=== PATIENT | male | born 1985 ===

== ENCOUNTER 2020-07-02 15:00 | Outpatient (RCR) | payer OTHER, SELFPAY ==
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
--- NOTE | 2020-07-08 08:35 | MHC.PT.DC ---
[facility] [place] Office [place] Office [place] Office [address] Karen Flower 140 [facility] [phone] F: [phone] F: [phone] F: [phone] F: [phone] Physical Therapy Discharge Report Diagnosis: unspecified thoracic, thoraco-lumbar and lumbosacral intervertebral disc disorder Date of Surgery: NA Date of Evaluation: 06/08/20 Date of Discharge: 07/08/20 Treatments to Date: 5 Cancellations to Date: 1 No Shows to Date: 1 Discharge Status: Patient Elected to Stop Discharge Summary: Pt called stating he had an MRI and was diagnosed to have a cyst in his low back which was pinching on a nerve. Pt is scheduled to have a surgery for this. Pt therefore d/c from therapy today. Electronically signed by: Miguelina Howard DPT Please sign and return to therapist. Thank you for your referral.
== END 2020-07-08 08:36 | disposition other institution (70) ==
LOC: HO.PT 15:00
PROVIDERS: PCP Internal Medicine; Visit Provider Physician Assistant
DX: M51.9 Unspecified thoracic, thoracolumbar and lumbosacral intervertebral disc disorder (principal)
CPT/HCPCS: 97110; 97112; 97140; 97161

== ENCOUNTER 2020-07-06 01:12 | Emergency (ER) | payer OTHER, SELFPAY ==
[2020-07-06 01:24] VITALS: BP 122/76; PULSE 88; RESP 18; TEMP 36.5; O2SAT 100; BMI 30.3
--- NOTE | 2020-07-06 01:28 | CT_ITS ---
EXAMINATION: CT ABDOMEN AND PELVIS WITH CONTRAST CLINICAL INFORMATION: Lower abdominal pain COMPARISON: None TECHNIQUE: Multidetector volumetric images were obtained from the superior aspect of the liver through the pubic symphysis following administration 85 mL of Omnipaque 350 intravenous contrast. Sagittal and coronal reformatted images were obtained on the technologist's workstation. Oral contrast: No This CT examination was performed using dose optimization techniques as appropriate, variously including the following: *Automated exposure control *Adjustment of mA and/or kV according to patient size (this includes techniques or standardized protocols for targeted exams where dose is matched to indication/reason for exam; i.e. extremities or head) *Use of iterative reconstruction technique DLP: 677 mGy-cm FINDINGS: LUNG BASES: The visualized lung bases are unremarkable. LIVER, GALLBLADDER, AND BILIARY TREE: The liver is normal in size, shape, and attenuation. No focal hepatic lesion or biliary ductal dilatation is present. The gallbladder appears contracted. PANCREAS: Unremarkable. SPLEEN: Unremarkable. ADRENAL GLANDS: Unremarkable. KIDNEYS AND URETERS: The kidneys are normal in size, shape, and attenuation. No hydronephrosis, hydroureter, or obstructing calculi seen. No perinephric stranding. BLADDER: Unremarkable. GASTROINTESTINAL TRACT: Moderate amount of stool is present in the colon. No evidence of bowel obstruction or significant wall thickening. The appendix is unremarkable. No free fluid or free air is seen. ABDOMINAL WALL: No significant hernia is appreciated. LYMPH NODES: Normal. VASCULAR: Unremarkable. PELVIC VISCERA: Unremarkable. OSSEOUS STRUCTURES: There is an expansile low-density structure posterior to the S2 and S3 vertebral bodies which is not well delineated on this exam, suggestive of a perineural cyst. CT/CT abdomen pelvis w con IMPRESSION: 1. Low-density structure posterior to the S2/S3 vertebral bodies, suggestive of a perineural cyst. Correlation with MRI is recommended. 2. Otherwise no acute findings identified in the abdomen/pelvis. Moderate volume of stool.
--- NOTE | 2020-07-06 01:29 | ED.MALEGU ---
HPI - Male Genitourinary General Chief complaint: Urogenital-Male Stated complaint: URINATION ISSUES Time Seen by Provider: 07/06/20 01:28 Source: patient Mode of arrival: ambulatory Limitations: no limitations History of Present Illness MD Complaint: other (urinary hesitancy, constipation, rectal pain) Onset (ago): month(s) (2) Duration: constant Location: abdomen Severity: moderate Quality: aching Relieving factors: none Exacerbating factors: urination and bowel movement Associated symptoms: Reports denies other symptoms Related Data Home Medications Medication Instructions Recorded Confirmed lidocaine 5 % topical patch 1 patch TOPICAL Q12H PRN 05/19/20 05/19/20 naproxen 500 mg tablet 500 mg PO Q12H PRN 05/19/20 05/19/20 Previous Rx's Medication Instructions Recorded ketoconazole 2 % shampoo 1 appl TOPICAL 3XW 30 Days #120 ml 05/19/20 sennosides 8.6 mg capsule 8.6 mg PO BEDTIME PRN 30 Days #30 05/19/20 cap cyclobenzaprine 10 mg PO TID PRN #14 tab 07/06/20 lactulose 15 ml PO DAILY PRN #600 ml 07/06/20 Allergies Allergy/AdvReac Type Severity Reaction Status Date / Time No Known Allergies Allergy Verified 05/19/20 10:03 [No Known Allergies*] Omeprazole AdvReac Unknown diarrhea Uncoded 02/04/20 00:00 Review of Systems Review of Systems: Constitutional : No Weight loss, No Fever, No Chills ENT/Mouth : No sore throat, No Rhinorrhea Eyes: No Swelling, No Redness Cardiovascular : No Chest Pain, No SOB, NoEdema Respiratory : No Cough, No Sputum, No Wheezing Gastrointestinal : no Nausea, no Vomiting, no Diarrhea, positive abdominal Pain, No Hematochezia, No Melena, pos rectal pain Genitourinary : pos Dysuria, No Urinary Frequency, No Hematuria, pos hesitancy Musculoskeletal : No joint pain, No Myalgias, No Joint Swelling Skin : No Skin Lesions, No rash Neuro : No Weakness, No Numbness, No Dizziness, No Headache Psych : No Anxiety/Panic, No Depression Heme/Lymph: No Bruising, No Lymphadenopathy Endocrine : No Polyuria, No Polydipsia All other systems reviewed and are negative. [facility] Past Medical History Attestation statement: The following information was validated with the patient. Medical History Constipation Lumbar spondylosis with myelopathy Surgical History History of ankle surgery Family History Family History Mother Diabetes Stroke High blood pressure Sister Thyroid condition Social History Social History Alcohol intake: current Alcohol intake frequency: a few times a week Alcohol type: beer Smoking Status: Current every day smoker Tobacco Type: Cigarette Use of substances other than those prescribed or required for medical reasons: No Advance Directives: No Advance Directives Information Provided: No Physical Exam Vital Signs: Vital Signs: Last Vital Signs Temp 97.7 F 07/06/20 01:24 Pulse 88 07/06/20 01:24 Resp 18 07/06/20 03:40 BP 122/76 07/06/20 01:24 Pulse Ox 100 07/06/20 01:24 Body Mass Index 30.3 Appearance: Alert. Oriented X3. No acute distress. Eyes: Pupils equal, round and reactive to light. ENT: Pharynx normal. Neck: Normal inspection. Neck supple. CVS: Normal heart rate and rhythm. Pulses normal. Respiratory: No respiratory distress. Breath sounds normal. Abdomen: Soft and nontender. Rectal: no mass, normal color, normal tone, no hemorrhoids noted Skin: Skin warm and dry. Normal skin color. Normal skin turgor. Extremities: No lower extremity edema. No calf ttp Neuro: Oriented X 3. No motor deficit. No sensory deficit. Course Course Course Narrative: normal rectal tone PVR = 0 no saddle anesthesia constipation x 2 months no CE symptoms c/o sciatica - suspect cyst is the cause, no b/b incontinence, no saddle anesthesia MDM - Male Genitourinary MDM Narrative Medical decision making narrative: 35 yo male with chronic back pain here with dysuria/hesitancy and rectal pain x 2 months, has not had it worked up, NV intact, normal rectal exam, at this time will need labs, UA, CT scan for mass, dispo per results and findings. Lab Data Result diagrams: 07/06/20 01:35 07/06/20 01:34 Labs: Lab Results 07/06/20 07/06/20 07/06/20 Range/Units 01:34 01:35 01:35 WBC 10.2 (4.8-10.8) X10*3/uL RBC 5.85 H (4.60-5.80) X10*6/uL Hgb 14.9 (14.0-18.0) g/dl Hct 46.9 (42-52) % MCV 80.2 (80-98) fL MCH 25.5 L (27.0-33.0) pg MCHC 31.8 (31.0-36.0) g/dl RDW 15.1 (11.0-16.0) % Plt Count 320 (160-400) X10*3/uL MPV 9.8 (9.4-12.4) fL Immature Gran % (Auto) 0.4 (0.0-0.4) % Neut % (Auto) 53.4 (45-73) % Lymph % (Auto) 35.5 (20-40) % [place] % (Auto) 8.7 (2-11) % Eos % (Auto) 1.2 (0-4) % Baso % (Auto) 0.8 (0-2) % Lymph # (Auto) 3.6 (1.2-4.9) X10*3/uL [place] # (Auto) 0.9 (0.1-1.2) X10*3/uL Eos # (Auto) 0.1 (0.0-0.4) X10*3/uL Baso # (Auto) 0.1 (0.0-0.2) X10*3/uL Abs Immat Gran (auto) 0.04 H (0.00-0.03) X10*3/uL Absolute Neuts (auto) 5.5 (2.0-8.3) X10*3/uL Absolute Nucleated RBC 0.000 (0.0-0.012) X10*3/uL Nucleated RBC % (auto) 0.0 (0.0-0.2) /100WBC Hold Blue Top SEE NOTE Sodium 142 (135-145) mmol/L Potassium 4.0 (3.3-5.1) mmol/l Chloride 102 (96-108) mmol/L Carbon Dioxide 23 (22-29) mmol/L Anion Gap 21 H (12-20) BUN 12 (9-16) mg/dL Creatinine 0.86 (0.5-1.4) mg/dL Estim Creat Clear Calc 154.9 Estimated GFR > 60 Random Glucose 108 (60-115) mg/dL Calcium 9.3 (8.4-10.2) mg/dL Magnesium 2.0 (1.6-2.6) mg/dL Total Bilirubin 0.4 (0.0-1.0) mg/dL Direct Bilirubin < 0.2 (0.0-0.5) mg/dL AST 24 (5-37) U/L ALT 39 (0-40) U/L Alkaline Phosphatase 115 (39-117) U/L Total Protein 7.6 (6.5-8.0) g/dL Albumin 4.7 (3.5-5.0) g/dL Lipase 25 (8-78) U/L Specimen Comment Urine Color Urine Appearance Urine pH (5.0-8.0) Ur Specific [place] (1.005-1.025) Urine Protein (NEG-TRACE) MG/DL Urine Glucose (UA) (NEG) MG/DL Urine Ketones (NEG) MG/DL Urine Blood (NEG) Urine Nitrite (NEG) Ur Leukocyte Esterase (NEG) 07/06/20 07/06/20 Range/Units 01:57 03:42 WBC (4.8-10.8) X10*3/uL RBC (4.60-5.80) X10*6/uL Hgb (14.0-18.0) g/dl Hct (42-52) % MCV (80-98) fL MCH (27.0-33.0) pg MCHC (31.0-36.0) g/dl RDW (11.0-16.0) % Plt Count (160-400) X10*3/uL MPV (9.4-12.4) fL Immature Gran % (Auto) (0.0-0.4) % Neut % (Auto) (45-73) % Lymph % (Auto) (20-40) % [place] % (Auto) (2-11) % Eos % (Auto) (0-4) % Baso % (Auto) (0-2) % Lymph # (Auto) (1.2-4.9) X10*3/uL [place] # (Auto) (0.1-1.2) X10*3/uL Eos # (Auto) (0.0-0.4) X10*3/uL Baso # (Auto) (0.0-0.2) X10*3/uL Abs Immat Gran (auto) (0.00-0.03) X10*3/uL Absolute Neuts (auto) (2.0-8.3) X10*3/uL Absolute Nucleated RBC (0.0-0.012) X10*3/uL Nucleated RBC % (auto) (0.0-0.2) /100WBC Hold Blue Top Sodium (135-145) mmol/L Potassium (3.3-5.1) mmol/l Chloride (96-108) mmol/L Carbon Dioxide (22-29) mmol/L Anion Gap (12-20) BUN (9-16) mg/dL Creatinine (0.5-1.4) mg/dL Estim Creat Clear Calc Estimated GFR Random Glucose (60-115) mg/dL Calcium (8.4-10.2) mg/dL Magnesium (1.6-2.6) mg/dL Total Bilirubin (0.0-1.0) mg/dL Direct Bilirubin (0.0-0.5) mg/dL AST (5-37) U/L ALT (0-40) U/L Alkaline Phosphatase (39-117) U/L Total Protein (6.5-8.0) g/dL Albumin (3.5-5.0) g/dL Lipase (8-78) U/L Specimen Comment DELAY Urine Color STRAW Urine Appearance CLEAR Urine pH 6.0 (5.0-8.0) Ur Specific [place] 1.010 (1.005-1.025) Urine Protein NEG (NEG-TRACE) MG/DL Urine Glucose (UA) NEG (NEG) MG/DL Urine Ketones NEG (NEG) MG/DL Urine Blood NEG (NEG) Urine Nitrite NEG (NEG) Ur Leukocyte Esterase NEG (NEG) Discharge Plan Discharge Clinical Impression: Perineural cyst Constipation Qualifiers: Constipation type: unspecified constipation type Qualified Code(s): K59.00 - Constipation, unspecified Patient Disposition: Home, Self-Care Instructions: Constipation (ED) Additional Instructions: return to ED for any worsening symptoms or concerns YOUR BACK PAIN LIKELY STEMS FROM A CYST ON A NERVE ROOT (S2 and S3) YOU NEED TO SEE A NEUROSURGEON AND HAVE MRI Prescriptions: New cyclobenzaprine 10 mg tablet 10 mg PO TID PRN (Reason: muscle spasm) Qty: 14 RF: 0 lactulose 10 gram/15 mL (15 mL) solution 15 ml PO DAILY PRN (Reason: constipation) Qty: 600 RF: 0 No Action naproxen 500 mg tablet 500 mg PO Q12H PRN (Reason: pain) RF: 0 lidocaine 5 % adhesive patch,medicated 1 patch topical Q12H PRNRF: 0 ketoconazole 2 % shampoo 1 appl topical 3XW 30 Days Qty: 120 RF: 0 senna 8.6 mg capsule 8.6 mg PO BEDTIME PRN (Reason: constipation) 30 Days Qty: 30 RF: 1 Referrals: Michelle Bennett MD [Physician] - 2 days (call for appointment ) Sujey Sanchez MD [Primary Care Provider] - 1 day
[2020-07-06] MEDS: 0.9 % Sodium Chloride 1,000 ML 999 ML IVCONT (01:36)
[2020-07-06 01:41] LABS: MANUAL DIFF FLAG NO
[2020-07-06 01:42] LABS: Basophils Absolute Auto 0.1 X10*3/uL (0.0-0.2); Basophils Percent Auto 0.8 % (0-2); Eosinophils Absolute Auto 0.1 X10*3/uL (0.0-0.4); Eosinophils Percent Auto 1.2 % (0-4); Hematocrit 46.9 % (42-52); Hemoglobin 14.9 g/dl (14.0-18.0); Imm Gran Abs Auto 0.04 X10*3/uL (0.00-0.03); Imm Gran Pct Auto 0.4 % (0.0-0.4); Lymphocytes Absolute Auto 3.6 X10*3/uL (1.2-4.9); Lymphocytes Percent Auto 35.5 % (20-40); Mean Corpuscular HGB Conc 31.8 g/dl (31.0-36.0); Mean Corpuscular Hemoglobin 25.5 pg (27.0-33.0); Mean Corpuscular Volume 80.2 fL (80-98); Mean Platelet Volume 9.8 fL (9.4-12.4); Monocytes Absolute Auto 0.9 X10*3/uL (0.1-1.2); Monocytes Percent Auto 8.7 % (2-11); Neutrophils Absolute Auto 5.5 X10*3/uL (2.0-8.3); Neutrophils Percent Auto 53.4 % (45-73); Platelet Count 320 X10*3/uL (160-400); Red Blood Count 5.85 X10*6/uL (4.60-5.80); Red Cell Distribution Width 15.1 % (11.0-16.0); White Blood Count 10.2 X10*3/uL (4.8-10.8)
[2020-07-06 01:58] LABS: Delay - Chemistry DELAY
[2020-07-06 02:31] LABS: Alanine Aminotransferase 39 U/L (0-40); Albumin Level 4.7 g/dL (3.5-5.0); Alkaline Phosphatase 115 U/L (39-117); Anion Gap 21 (12-20); Aspartate Amino Transferase 24 U/L (5-37); Bilirubin Direct < 0.2 mg/dL (0.0-0.5); Bilirubin Total 0.4 mg/dL (0.0-1.0); Blood Urea Nitrogen 12 mg/dL (9-16); Calcium 9.3 mg/dL (8.4-10.2); Carbon Dioxide 23 mmol/L (22-29); Chloride 102 mmol/L (96-108); Creatinine Clr Calc Pharmacy 154.9; Estimated Glomerular Filt Rate > 60; Glucose Random 108 mg/dL (60-115); Lipase 25 U/L (8-78); Sodium 142 mmol/L (135-145); Total Protein 7.6 g/dL (6.5-8.0)
[2020-07-06] MEDS: iohexoL 350 MG/ML 100 ML INFUS..BTL 85 ML IV (03:04)
[2020-07-06 03:40] VITALS: RESP 18
[2020-07-06 03:48] LABS: Glucose Urine UA NEG (NEG); Leukocyte Esterase Urine NEG (NEG); Nitrite Urine NEG (NEG); Urine Blood NEG (NEG); Urine Ketones NEG (NEG); Urine Protein NEG (NEG-TRACE)
[2020-07-06 03:50] LABS: Appearance Urine CLEAR; Color Urine STRAW; UACC Culture Trigger NO
== END 2020-07-06 04:24 | disposition home or self-care (01) ==
PROVIDERS: Emergency Provider Emergency Medicine; PCP Internal Medicine
DX: G96.191 Perineural cyst (principal); K59.00 Constipation, unspecified
CPT/HCPCS: 36415; 74177; 80048; 80076; 81003; 83690; 83735; 85025; 96360; 99284; Q9967

== ENCOUNTER 2020-07-22 15:44 | Outpatient (REF) | payer OTHER, SELFPAY ==
--- NOTE | ~2020-07-22 | MR_ITS ---
EXAMINATION: MR SACRUM WITHOUT CONTRAST CLINICAL INFORMATION: 35-year-old with low back pain radiating to the left leg. COMPARISON: 07/06/2020 CT abdomen. TECHNIQUE: Multiplanar multisequence MR imaging of the sacrum and coccyx was performed without intravenous contrast material. FINDINGS: Note is made of a multilobulated masslike structure within the sacral canal extending from approximately the level of the L5-S1 intervertebral disc space caudally down to the third sacral segment, measuring 7.1 x 5.5 x 2.6 cm in maximum dimensions. There is scalloping/remodeling of the bony sacral canal, right more than left. The mass extends into the right S2 neural foramen and possibly marginally into the bilateral S1 and left S2 neural foramina. Differential diagnostic considerations include a plexiform neurofibroma, schwannoma or lymphoma; however, gadolinium was not administered at this time. Signal characteristics are not consistent with an ependymoma. The remainder of the visualized pelvis is within normal limits. SI joints appear within normal limits. Bilateral hip joints appear symmetric and intact. Small benign-appearing cyst in the left femoral neck and probable small cysts in the proximal femoral metaphyses bilaterally. MR/MR sacrum wo con IMPRESSION: A 7.1 cm lobulated masslike structure within the sacral canal, possibly extradural in location. Differential diagnostic considerations include nerve sheath tumor such as a plexiform neurofibroma or schwannoma or possibly lymphoma. Recommend patient return for gadolinium-enhanced imaging to further assess this.
== END 2020-07-22 15:45 | disposition home or self-care (01) ==
LOC: HO.MRI 15:44
PROVIDERS: Visit Provider Internal Medicine
DX: G96.191 Perineural cyst (principal)
CPT/HCPCS: 72195

== ENCOUNTER 2020-09-16 14:41 | Outpatient (REF) | payer OTHER, SELFPAY ==
--- NOTE | ~2020-09-16 | MR_ITS ---
EXAMINATION: MRI SACRUM WITHOUT AND WITH CONTRAST CLINICAL INFORMATION: Sacral mass. COMPARISON: Sacral MRI 07/22/2020. TECHNIQUE: Multiplanar MR imaging of the sacrum was performed without and with contrast. A total of 10 mL Gadavist was utilized for this examination. FINDINGS: There is heterogeneous enhancement associated with a large mass filling the sacral spinal canal. It measures 2.7 x 5.5 x 6.9 cm (AP x TV x SI). It causes smooth expansion with remodeling of the S1-S3 vertebral segments. Otherwise no abnormal intradural mass is visualized within the relatively limited [id number]-[id number] of this examination. Remainder of the pelvic anatomy is stable when compared to prior imaging. MR/MR sacrum wo/w con IMPRESSION: There is heterogeneous enhancement associated with a lobulated mass filling the sacral spinal canal causing expansion with smooth remodeling of the S1-S3 vertebral segments. Most likely diagnostic considerations include a peripheral nerve sheath tumor or a myxopapillary ependymoma.
== END 2020-09-16 14:42 | disposition home or self-care (01) ==
LOC: HO.MRI 14:41
PROVIDERS: Visit Provider Neurological Surgery
DX: M99.84 Other biomechanical lesions of sacral region (principal)
CPT/HCPCS: 72197; A9585

== ENCOUNTER 2020-09-18 21:44 | Emergency (ER) | payer OTHER, SELFPAY ==
--- NOTE | ~2020-09-18 | XR_ITS ---
EXAMINATION: XR CHEST CLINICAL INFORMATION: Chest pain COMPARISON: None TECHNIQUE: Frontal view of the chest was obtained. FINDINGS: No significant abnormality is noted involving the heart, lungs, mediastinum, bony thorax or soft tissues. XR/XR chest 1V IMPRESSION: Unremarkable examination.
[2020-09-18 21:57] VITALS: BP 132/83; PULSE 78; RESP 18; TEMP 37.3; O2SAT 98; BMI 28.5
--- NOTE | 2020-09-18 22:01 | ECG_ITS ---
Test Reason : CHEST PAIN Blood Pressure : / mmHG Vent. Rate : 077 BPM Atrial Rate : 077 BPM P-R Int : 154 ms QRS Dur : 086 ms QT Int : 398 ms P-R-T Axes : 000 -40 018 degrees QTc Int : 450 ms Sinus rhythm with sinus arrhythmia with occasional Premature ventricular complexes Abnormal ECG No previous ECGs available Referred By: Generic ED Physician Electronically Signed By:FELIBERTO INGRAM
[2020-09-18 22:38] VITALS: BP 127/86; PULSE 74; RESP 14; TEMP 36.9; O2SAT 98
--- NOTE | 2020-09-18 22:50 | ED_ITS ---
HPI - Chest Pain General Chief Complaint: Chest Pain Stated Complaint: cp Time Seen by Provider: 09/18/20 22:50 Source: patient Mode of arrival: ambulatory Limitations: no limitations History of Present Illness HPI narrative: Patient with no known coronary artery disease ex-smoker had few drinks last night woke up in the morning with epigastric pain going to the left chest felt tingling in the left arm patient does have a history of GERD and pain gets worse when he eats . But feels this time pain is more on the left side than the center, No nausea no vomiting no diaphoresis no shortness of breath MD complaint: chest pain Related Data Home Medications Medication Instructions Recorded Confirmed lidocaine 5 % topical patch 1 patch TOPICAL Q12H PRN 05/19/20 07/09/20 naproxen 500 mg tablet 500 mg PO Q12H PRN 05/19/20 07/09/20 Previous Rx's Medication Instructions Recorded sennosides 8.6 mg capsule 8.6 mg PO BEDTIME PRN 30 Days #30 05/19/20 cap cyclobenzaprine 10 mg PO TID PRN #14 tab 07/06/20 lactulose 15 ml PO DAILY PRN #600 ml 07/06/20 ketoconazole 2 % shampoo 1 appl TOPICAL 3XW 30 Days #120 ml 09/02/20 omeprazole 40 mg PO DAILY #30 cap 09/18/20 sucralfate 1 g PO BID #60 tab 09/18/20 Allergies Allergy/AdvReac Type Severity Reaction Status Date / Time Omeprazole AdvReac Unknown diarrhea Uncoded 07/09/20 15:13 Review of Systems Review of Systems: Constitutional : No Weight loss, No Fever, No Chills ENT/Mouth : No sore throat, No Rhinorrhea Eyes: No Eye Pain, No Swelling Cardiovascular : ++Chest Pain, no palpitations Respiratory : No Cough, No Sputum, no shortness of breath Gastrointestinal : no Nausea, No Vomiting, No Diarrhea, No abdominal Pain, no black stools Genitourinary : No Dysuria, No Urinary Frequency Musculoskeletal : No joint pain, No Myalgias, No Joint Swelling Skin : No Skin Lesions, No rash Neuro : No Weakness, No Numbness, No Dizziness, No Headache Psych : No Anxiety/Panic, No Depression Heme/Lymph: No Bruising, No Lymphadenopathy Endocrine : No Polyuria, No Polydipsia All other systems reviewed and are negative PMFSH Past Medical History Medical History Constipation Lumbar spondylosis with myelopathy Perineural cyst Surgical History History of ankle surgery Family History Family History Mother Diabetes Stroke High blood pressure Sister Thyroid condition Social History Social History Alcohol intake: current Alcohol intake frequency: a few times a week Alcohol type: beer Smoking Status: Former smoker Tobacco Type: Cigarette Advance Directives: No Advance Directives Information Provided: No Physical Exam Vital Signs: Vital Signs: Last Vital Signs Temp 98.4 F 09/18/20 22:38 Pulse 74 09/18/20 22:38 Resp 14 09/18/20 22:38 BP 127/86 09/18/20 22:38 Pulse Ox 98 09/18/20 22:38 Body Mass Index 28.5 Appearance: Alert. Oriented X3. No acute distress. Eyes: Pupils equal, round and reactive to light. ENT: Pharynx normal. Neck: Normal inspection. Neck supple. CVS: Normal heart rate and rhythm. Pulses normal. Respiratory: No respiratory distress. Breath sounds normal. Abdomen: Soft epigastric tenderness+ no rebound tenderness or guarding Bowel sounds are present, no mass palpable, no CVA tenderness Skin: Skin warm and dry. Normal skin color. Normal skin turgor. Extremities: No lower extremity edema. No calf tenderness Neuro: Oriented X 3. No motor deficit. No sensory deficit. MDM - Chest Pain MDM Narrative Medical decision making narrative: Patient has atypical chest pain likely alcoholic gastritis pain get better after Maalox and Prilosec given in the ER. Differential Diagnosis Differential diagnosis: Likely atypical chest pain and chest pain Medical Records Data Attestation: I reviewed the patient's medical records. Lab Data Attestation: I reviewed the patient's lab results. Result diagrams: 09/18/20 22:47 09/18/20 22:47 Labs: Lab Results 09/18/20 09/18/20 09/18/20 Range/Units 22:47 22:47 22:47 WBC 10.1 (4.8-10.8) X10*3/uL RBC 5.54 (4.60-5.80) X10*6/uL Hgb 14.0 (14.0-18.0) g/dl Hct 43.2 (42-52) % MCV 78.0 L (80-98) fL MCH 25.3 L (27.0-33.0) pg MCHC 32.4 (31.0-36.0) g/dl RDW 15.2 (11.0-16.0) % Plt Count 323 (160-400) X10*3/uL MPV 9.8 (9.4-12.4) fL Immature Gran % (Auto) 0.5 H (0.0-0.4) % Neut % (Auto) 58.5 (45-73) % Lymph % (Auto) 28.7 (20-40) % [place] % (Auto) 10.3 (2-11) % Eos % (Auto) 1.1 (0-4) % Baso % (Auto) 0.9 (0-2) % Lymph # (Auto) 2.9 (1.2-4.9) X10*3/uL [place] # (Auto) 1.0 (0.1-1.2) X10*3/uL Eos # (Auto) 0.1 (0.0-0.4) X10*3/uL Baso # (Auto) 0.1 (0.0-0.2) X10*3/uL Abs Immat Gran (auto) 0.05 H (0.00-0.03) X10*3/uL Absolute Neuts (auto) 5.9 (2.0-8.3) X10*3/uL Absolute Nucleated RBC 0.000 (0.0-0.012) X10*3/uL Nucleated RBC % (auto) 0.0 (0.0-0.2) /100WBC Hold Blue Top SEE NOTE Sodium 140 (135-145) mmol/L Potassium 3.9 (3.3-5.1) mmol/L Chloride 103 (96-108) mmol/L Carbon Dioxide 28 (22-29) mmol/L Anion Gap 13 (12-20) BUN 13 (9-16) mg/dL Creatinine 0.92 (0.5-1.4) mg/dL Estim Creat Clear Calc 133.0 Estimated GFR > 60 Random Glucose 92 (60-115) mg/dL Calcium 9.4 (8.4-10.2) mg/dL Troponin I High Sens (<3.5-35.0) ng/L 09/18/20 Range/Units 22:47 WBC (4.8-10.8) X10*3/uL RBC (4.60-5.80) X10*6/uL Hgb (14.0-18.0) g/dl Hct (42-52) % MCV (80-98) fL MCH (27.0-33.0) pg MCHC (31.0-36.0) g/dl RDW (11.0-16.0) % Plt Count (160-400) X10*3/uL MPV (9.4-12.4) fL Immature Gran % (Auto) (0.0-0.4) % Neut % (Auto) (45-73) % Lymph % (Auto) (20-40) % [place] % (Auto) (2-11) % Eos % (Auto) (0-4) % Baso % (Auto) (0-2) % Lymph # (Auto) (1.2-4.9) X10*3/uL [place] # (Auto) (0.1-1.2) X10*3/uL Eos # (Auto) (0.0-0.4) X10*3/uL Baso # (Auto) (0.0-0.2) X10*3/uL Abs Immat Gran (auto) (0.00-0.03) X10*3/uL Absolute Neuts (auto) (2.0-8.3) X10*3/uL Absolute Nucleated RBC (0.0-0.012) X10*3/uL Nucleated RBC % (auto) (0.0-0.2) /100WBC Hold Blue Top Sodium (135-145) mmol/L Potassium (3.3-5.1) mmol/L Chloride (96-108) mmol/L Carbon Dioxide (22-29) mmol/L Anion Gap (12-20) BUN (9-16) mg/dL Creatinine (0.5-1.4) mg/dL Estim Creat Clear Calc Estimated GFR Random Glucose (60-115) mg/dL Calcium (8.4-10.2) mg/dL Troponin I High Sens < 3.5 (<3.5-35.0) ng/L ECG Data ECG #1: Attestation: I personally reviewed and interpreted this ECG as follows: Interpretation: Sinus rhythm with heart rate 77 beats per minute occasional PVCs unifocal left axis deviation no acute ST T wave changes no acute ischemia Scores Heart Score History: -0- slightly suspicious ECG: -0- normal Age: -0- < or = 45 Risk factory: -1- 1 or 2 risk factors Troponin: -0- < or = normal limit Score: 1 Risk: 1.7% Discharge Plan Discharge Clinical Impression: Chest pain Qualifiers: Chest pain type: precordial pain Qualified Code(s): R07.2 - Precordial pain GERD (gastroesophageal reflux disease) Qualifiers: Esophagitis presence: with esophagitis Esophagitis bleeding: without hemorrhage Qualified Code(s): K21.00 - Gastro-esophageal reflux disease with esophagitis, without bleeding Patient Disposition: Home, Self-Care Instructions: Chest Pain (ED), Gastroesophageal Reflux Disease (ED) Additional Instructions: Avoid alcohol use, avoid greasy food, take medication as prescribed. Follow with PCP if pain continues for further evaluation and workup Prescriptions: New omeprazole 40 mg capsule,delayed release(DR/EC) 40 mg PO DAILY Qty: 30 RF: 0 sucralfate 1 gram tablet 1 g PO BID Qty: 60 RF: 0 No Action ketoconazole 2 % shampoo 1 appl topical 3XW 30 Days Qty: 120 RF: 0 cyclobenzaprine 10 mg tablet 10 mg PO TID PRN (Reason: muscle spasm) Qty: 14 RF: 0 lactulose 10 gram/15 mL (15 mL) solution 15 ml PO DAILY PRN (Reason: constipation) Qty: 600 RF: 0 naproxen 500 mg tablet 500 mg PO Q12H PRN (Reason: pain) RF: 0 lidocaine 5 % adhesive patch,medicated 1 patch topical Q12H PRNRF: 0 senna 8.6 mg capsule 8.6 mg PO BEDTIME PRN (Reason: constipation) 30 Days Qty: 30 RF: 1
[2020-09-18 22:52] LABS: MANUAL DIFF FLAG NO
[2020-09-18 22:53] LABS: Basophils Absolute Auto 0.1 X10*3/uL (0.0-0.2); Basophils Percent Auto 0.9 % (0-2); Eosinophils Absolute Auto 0.1 X10*3/uL (0.0-0.4); Eosinophils Percent Auto 1.1 % (0-4); Hematocrit 43.2 % (42-52); Imm Gran Abs Auto 0.05 X10*3/uL (0.00-0.03); Imm Gran Pct Auto 0.5 % (0.0-0.4); Lymphocytes Absolute Auto 2.9 X10*3/uL (1.2-4.9); Lymphocytes Percent Auto 28.7 % (20-40); Mean Corpuscular HGB Conc 32.4 g/dl (31.0-36.0); Mean Corpuscular Hemoglobin 25.3 pg (27.0-33.0); Mean Platelet Volume 9.8 fL (9.4-12.4); Monocytes Percent Auto 10.3 % (2-11); Neutrophils Absolute Auto 5.9 X10*3/uL (2.0-8.3); Neutrophils Percent Auto 58.5 % (45-73); Platelet Count 323 X10*3/uL (160-400); Red Blood Count 5.54 X10*6/uL (4.60-5.80); Red Cell Distribution Width 15.2 % (11.0-16.0); White Blood Count 10.1 X10*3/uL (4.8-10.8)
[2020-09-18] MEDS: Omeprazole 40 MG CAPSULE.DR PO (23:09)
[2020-09-18] MEDS: Magnesium Hydrox/Alum Hydrox 30 ML ORAL.SUSP PO (23:09)
--- NOTE | 2020-09-18 23:11 | PC.NURSE ---
pt medicated as per emar.
[2020-09-18 23:20] LABS: Anion Gap 13 (12-20); Blood Urea Nitrogen 13 mg/dL (9-16); Calcium 9.4 mg/dL (8.4-10.2); Carbon Dioxide 28 mmol/L (22-29); Chloride 103 mmol/L (96-108); Estimated Glomerular Filt Rate > 60; Glucose Random 92 mg/dL (60-115); Potassium 3.9 mmol/L (3.3-5.1); Sodium 140 mmol/L (135-145)
[2020-09-18 23:29] LABS: Troponin-I High Sensitivity < 3.5 ng/L (<3.5-35.0)
== END 2020-09-19 00:36 | disposition home or self-care (01) ==
PROVIDERS: Emergency Provider Internal Medicine; PCP Internal Medicine
DX: R07.2 Precordial pain (principal); K21.00 Gastro-esophageal reflux disease with esophagitis, without bleeding
CPT/HCPCS: 36415; 71045; 80048; 84484; 85025; 93005; 99283

== ENCOUNTER 2020-11-24 14:25 | Emergency (ER) | payer OTHER, SELFPAY | END 2020-11-24 19:20 | disposition left against medical advice (07) | PROVIDERS: Emergency Provider Emergency Medicine; PCP Internal Medicine | DX: R07.9 Chest pain, unspecified (principal); M25.519 Pain in unspecified shoulder ==

== ENCOUNTER 2021-01-19 11:09 | Outpatient (REF) | payer OTHER, SELFPAY ==
[2021-01-19 12:33] LABS: Blood Urea Nitrogen 9 mg/dL (9-16); Estimated Glomerular Filt Rate > 60
== END 2021-01-19 11:10 | disposition home or self-care (01) ==
LOC: HO.LAB 11:09
PROVIDERS: PCP Internal Medicine; Visit Provider Internal Medicine
DX: Z20.822 Contact with and (suspected) exposure to COVID-19 (principal); G96.191 Perineural cyst
CPT/HCPCS: 36415; 82565; 84520; C9803; U0003; U0005

== ENCOUNTER 2021-06-23 16:50 | Outpatient (REF) | payer OTHER, SELFPAY ==
--- NOTE | ~2021-06-23 | XR_ITS ---
EXAMINATION: XR ABDOMEN KUB CLINICAL INDICATION: Constipation COMPARISON: CT abdomen from 07/06/2020 TECHNIQUE: AP view of the abdomen. FINDINGS: No dilated loops of bowel suggest obstruction. Mild fecal loading throughout the colon. Surgical spinal hardware overlying the mid sacrum. Joint spaces and alignment are otherwise maintained. Visualized portions of the lower chest are unremarkable. Tissues are unremarkable. XR/XR KUB IMPRESSION: 1. No dilated loops of bowel suggest obstruction. 2. Mild fecal loading throughout the colon. 3. Surgical spinal hardware overlying the mid sacrum.
== END 2021-06-23 16:51 | disposition home or self-care (01) ==
LOC: HO.XRAY 16:50
PROVIDERS: PCP Internal Medicine; Visit Provider Nurse Practitioner Family
DX: K59.00 Constipation, unspecified (principal)
CPT/HCPCS: 74018

== ENCOUNTER 2021-08-12 16:48 | Emergency (ER) | payer OTHER, SELFPAY ==
[2021-08-12 16:55] VITALS: BP 136/77; PULSE 84; RESP 18; TEMP 36.8; O2SAT 98; BMI 28.5
[2021-08-12 17:33] LABS: MANUAL DIFF FLAG NO
[2021-08-12 17:34] LABS: Basophils Percent Auto 0.5 % (0-2); Eosinophils Absolute Auto 0.2 X10*3/uL (0.0-0.4); Eosinophils Percent Auto 2.1 % (0-4); Hematocrit 42.9 % (42.0-52.0); Hemoglobin 13.8 g/dl (14.0-18.0); Imm Gran Abs Auto 0.04 X10*3/uL (0.00-0.03); Imm Gran Pct Auto 0.5 % (0.0-0.4); Lymphocytes Absolute Auto 1.3 X10*3/uL (1.2-4.9); Lymphocytes Percent Auto 16.7 % (20-40); Mean Corpuscular HGB Conc 32.2 g/dl (31.0-36.0); Mean Corpuscular Hemoglobin 25.5 pg (27.0-33.0); Mean Corpuscular Volume 79.2 fL (80.0-98.0); Mean Platelet Volume 9.5 fL (9.4-12.4); Monocytes Absolute Auto 0.9 X10*3/uL (0.1-1.2); Monocytes Percent Auto 10.7 % (2-11); Neutrophils Absolute Auto 5.5 x10*3/uL (2.0-8.3); Neutrophils Percent Auto 69.5 % (45-73); Platelet Count 274 X10*3/uL (160-400); Red Blood Count 5.42 X10*6/uL (4.60-5.80); Red Cell Distribution Width 16.2 % (11.0-16.0)
[2021-08-12 17:35] LABS: Appearance Urine CLEAR; Color Urine YELLOW; Glucose Urine UA NEG (NEG); Leukocyte Esterase Urine NEG (NEG); Nitrite Urine NEG (NEG); Urine Blood NEG (NEG); Urine Ketones NEG (NEG); Urine Protein NEG (NEG-TRACE)
[2021-08-12 17:50] LABS: COVID-19 Test Negative (Negative)
[2021-08-12 17:53] LABS: Alanine Aminotransferase 25 U/L (0-40); Albumin Level 4.4 g/dL (3.5-5.0); Alkaline Phosphatase 95 U/L (39-117); Anion Gap 8 (12-20); Aspartate Amino Transferase 18 U/L (5-37); Bilirubin Total 1.1 mg/dL (0.0-1.0); Blood Urea Nitrogen 13 mg/dL (9-16); Calcium 9.7 mg/dL (8.4-10.2); Carbon Dioxide 31 mmol/L (22-29); Chloride 104 mmol/L (96-108); Creatinine Clr Calc Pharmacy 132.6; Estimated Glomerular Filt Rate > 60; Glucose Random 98 mg/dL (60-115); Potassium 4.1 mmol/L (3.3-5.1); Sodium 139 mmol/L (135-145); Total Protein 7.2 g/dL (6.5-8.0)
--- NOTE | 2021-08-12 19:36 | ED_ITS ---
HPI - General Adult General Chief complaint: General Medical Stated complaint: covid symptoms, lasting 2 mths, stomach pain Time Seen by Provider: 08/12/21 19:42 Source: patient Mode of arrival: ambulatory Limitations: no limitations History of Present Illness HPI narrative: 36-year-old male presents to ED for loss of taste and smell the past 2 months. Patient was diagnosed with COVID months ago. Patient denies any chest pain or shortness of breath. Patient's secondary complaint is acid like burning sensation abdomen for 2 months which leads to bad taste in the mouth, and also after eating couple hours later he will be hungry and have acid burning sensation. Patient denies any chest pain or shortness of breath. Patient denies any coughing up blood, fever, or chills. Patient denies any diarrhea or nausea, vomiting, leg swelling, calf pain, fever, or chills. Patient does states burning sensation abdomen worsening when he drinks alcohol. Related Data Home Medications Medication Instructions Recorded Confirmed gabapentin 300 mg capsule 300 mg PO TID 05/24/21 06/23/21 Previous Rx's Medication Instructions Recorded ketoconazole 2 % shampoo 1 appl TOPICAL 3XW 30 Days #120 ml 05/19/21 omeprazole 40 mg capsule,delayed 40 mg PO DAILY 90 Days #90 cap 05/24/21 release hydrocortisone acetate 25 mg 25 mg SC BID 12 Days #24 ea 06/23/21 rectal suppository (Anusol-HC) hydroxyzine HCl 25 mg tablet 25 mg PO BEDTIME #30 tab 06/23/21 sennosides 8.6 mg capsule (senna) 8.6 mg PO BEDTIME PRN 30 Days #30 06/23/21 cap escitalopram oxalate 10 mg tablet 10 mg PO DAILY 30 Days #30 tab 07/22/21 docusate sodium 100 mg capsule 100 mg PO BID #60 cap 08/10/21 simethicone 80 mg chewable tablet 80 mg PO TID-QID PRN #30 tab 08/10/21 (Gas Relief 80 (simethicone)) famotidine 20 mg tablet (Pepcid) 20 mg PO BID 10 Days #20 tab 08/12/21 Allergies Allergy/AdvReac Type Severity Reaction Status Date / Time No Known Allergies Allergy Verified 08/12/21 16:54 Review of Systems Review of Systems: Loss of taste and smell. Acid burning-like sensation in abdomen Yes all other systems are reviewed and are negative [facility] Past Medical History Medical History Anxiety Blurry vision Constipation Lumbar spondylosis with myelopathy Moderate recurrent major depression Myxopapillary ependymoma of spinal cord Perineural cyst Surgical History History of ankle surgery History of lumbar surgery Family History Family History Mother Diabetes Stroke High blood pressure Sister Thyroid condition Social History Social History Housing: House Alcohol intake: current Alcohol intake frequency: a few times a week Alcohol type: beer Patient Tobacco Use Status: Former Tobacco user Tobacco use type: Cigarette e-Cigarette/Vaping Use: Never Used Second Hand Smoke Exposure: No Advance Directives: No Advance Directives Information Provided: No service: No Current occupational status: unemployed Physical Exam ED Vital Signs: Vital Signs - 24 hr 08/12/21 16:55 Temperature 98.3 F Pulse Rate 84 Respiratory Rate 18 Blood Pressure 136/77 Pulse Oximetry 98 BMI result Body Mass Index 28.5 Const General: cooperative, healthy appearing, comfortable, no acute distress, well developed, alert, awake and Physically active Orientation/consciousness: patient oriented x3 HENMT Head: Yes normal to inspection, Yes No palpable skull fracture present, Yes normocephalic, Yes atraumatic and No abrasion Eyes General: appearance normal, both eyes and all related structures Neck Neck: Yes normal visual inspection, Yes full ROM, Yes no lymphadenopathy, Yes no meningeal signs, Yes trachea midline, Yes supple, No anterior neck swelling and No tender Chest Chest palpation & inspection: normal inspection of the chest and normal palpation of entire chest wall Resp Effort & Inspection: normal respiratory effort and able to speak in complete sentences Auscultation: clear to auscultation bilaterally Cardio Jugular venous distension: no JVD Heart sounds: S1 normal heart sound present and S2 normal heart sound present GI Inspection: Yes normal to inspection and No abdominal wall ecchymosis Palpation (GI): Soft to palpation, not firm, nontender, no guarding and not rigid General: No CVA tenderness and Yes no CVA tenderness Back/Spine/Pelvis Back: no CVA tenderness, No CVA tenderness and No back tenderness Skin General skin exam: no rashes or lesions noted and elasticity normal Neuro General: patient oriented x3, gait normal, no meningeal signs and CN's II-XI intact bilaterally Cranial nerves: Yes CN's II-XII intact bilaterally Extrem General: Yes normal to inspection and Yes full ROM Psych Appearance: grossly normal, well kempt and not disheveled Course Course Course Narrative: Patient rapid medical screening from waiting room. Waiting for lab results. COVID swab sent. Reevaluation(s) Reevaluation #1: Patient not in any distress. Abdomen benign soft nontender on palpation. Lipase added. Liver enzymes COVID swab negative. Chemistry normal. Negative failure white blood cell count. Physical presentation long-term COVID symptoms and GERD like symptoms. Time: 19:54 Reevaluation #2: Bedside ultrasound negative for gallstones. Negative Benton sign. Time: 21:41 Medical Decision Making MDM Narrative Medical decision making narrative: GERD. COVID Long symptoms Lab Data Result diagrams: 08/12/21 17:29 08/12/21 17:29 Labs: Lab Results 08/12/21 08/12/21 08/12/21 Range/Units 17:29 17:29 17:29 WBC 8.0 (4.8-10.8) X10*3/uL RBC 5.42 (4.60-5.80) X10*6/uL Hgb 13.8 L (14.0-18.0) g/dl Hct 42.9 (42.0-52.0) % MCV 79.2 L (80.0-98.0) fL MCH 25.5 L (27.0-33.0) pg MCHC 32.2 (31.0-36.0) g/dl RDW 16.2 H (11.0-16.0) % Plt Count 274 (160-400) X10*3/uL MPV 9.5 (9.4-12.4) fL Immature Gran % (Auto) 0.5 H (0.0-0.4) % Neut % (Auto) 69.5 (45-73) % Lymph % (Auto) 16.7 L (20-40) % [place] % (Auto) 10.7 (2-11) % Eos % (Auto) 2.1 (0-4) % Baso % (Auto) 0.5 (0-2) % Lymph # (Auto) 1.3 (1.2-4.9) X10*3/uL [place] # (Auto) 0.9 (0.1-1.2) X10*3/uL Eos # (Auto) 0.2 (0.0-0.4) X10*3/uL Baso # (Auto) 0.0 (0.0-0.2) X10*3/uL Abs Immat Gran (auto) 0.04 H (0.00-0.03) X10*3/uL Absolute Neuts (auto) 5.5 (2.0-8.3) x10*3/uL Absolute Nucleated RBC 0.000 (0.0-0.012) X10*3/uL Nucleated RBC % (auto) 0.0 (0.0-0.2) /100WBC Sodium 139 (135-145) mmol/L Potassium 4.1 (3.3-5.1) mmol/L Chloride 104 (96-108) mmol/L Carbon Dioxide 31 H (22-29) mmol/L Anion Gap 8 L (12-20) BUN 13 (9-16) mg/dL Creatinine 0.94 (0.5-1.4) mg/dL Estim Creat Clear Calc 132.6 Estimated GFR > 60 Random Glucose 98 (60-115) mg/dL Calcium 9.7 (8.4-10.2) mg/dL Total Bilirubin 1.1 H (0.0-1.0) mg/dL AST 18 (5-37) U/L ALT 25 (0-40) U/L Alkaline Phosphatase 95 (39-117) U/L Total Protein 7.2 (6.5-8.0) g/dL Albumin 4.4 (3.5-5.0) g/dL Lipase 19 (8-78) U/L Urine Color Urine Appearance Urine pH (5.0-8.0) Ur Specific [place] (1.005-1.025) Urine Protein (NEG-TRACE) MG/DL Urine Glucose (UA) (NEG) MG/DL Urine Ketones (NEG) MG/DL Urine Blood (NEG) Urine Nitrite (NEG) Ur Leukocyte Esterase (NEG) COVID-19 ([place]) Negative (Negative) COVID-19 Clin Com See Note 08/12/21 Range/Units 17:29 WBC (4.8-10.8) X10*3/uL RBC (4.60-5.80) X10*6/uL Hgb (14.0-18.0) g/dl Hct (42.0-52.0) % MCV (80.0-98.0) fL MCH (27.0-33.0) pg MCHC (31.0-36.0) g/dl RDW (11.0-16.0) % Plt Count (160-400) X10*3/uL MPV (9.4-12.4) fL Immature Gran % (Auto) (0.0-0.4) % Neut % (Auto) (45-73) % Lymph % (Auto) (20-40) % [place] % (Auto) (2-11) % Eos % (Auto) (0-4) % Baso % (Auto) (0-2) % Lymph # (Auto) (1.2-4.9) X10*3/uL [place] # (Auto) (0.1-1.2) X10*3/uL Eos # (Auto) (0.0-0.4) X10*3/uL Baso # (Auto) (0.0-0.2) X10*3/uL Abs Immat Gran (auto) (0.00-0.03) X10*3/uL Absolute Neuts (auto) (2.0-8.3) x10*3/uL Absolute Nucleated RBC (0.0-0.012) X10*3/uL Nucleated RBC % (auto) (0.0-0.2) /100WBC Sodium (135-145) mmol/L Potassium (3.3-5.1) mmol/L Chloride (96-108) mmol/L Carbon Dioxide (22-29) mmol/L Anion Gap (12-20) BUN (9-16) mg/dL Creatinine (0.5-1.4) mg/dL Estim Creat Clear Calc Estimated GFR Random Glucose (60-115) mg/dL Calcium (8.4-10.2) mg/dL Total Bilirubin (0.0-1.0) mg/dL AST (5-37) U/L ALT (0-40) U/L Alkaline Phosphatase (39-117) U/L Total Protein (6.5-8.0) g/dL Albumin (3.5-5.0) g/dL Lipase (8-78) U/L Urine Color YELLOW Urine Appearance CLEAR Urine pH 6.0 (5.0-8.0) Ur Specific [place] 1.020 (1.005-1.025) Urine Protein NEG (NEG-TRACE) MG/DL Urine Glucose (UA) NEG (NEG) MG/DL Urine Ketones NEG (NEG) MG/DL Urine Blood NEG (NEG) Urine Nitrite NEG (NEG) Ur Leukocyte Esterase NEG (NEG) COVID-19 ([place]) (Negative) COVID-19 Clin Com Discharge Plan Discharge Clinical Impression: GERD (gastroesophageal reflux disease), 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 He will be discharged with anti acid medication. You can take [id number] Tums and Maalox. Return to the ED immediately for abdominal pain, nausea, vomiting, decreased appetite, fever, chills, flank pain, vomiting blood, rectal bleeding, or any other concerning symptoms. Prescriptions: New famotidine [Pepcid] 20 mg tablet 20 mg PO BID 10 Days Qty: 20 0RF No Action ketoconazole 2 % shampoo 1 appl topical 3XW 30 Days Qty: 120 3RF hydroxyzine HCl 25 mg tablet 25 mg PO BEDTIME Qty: 30 0RF escitalopram oxalate 10 mg tablet 10 mg PO DAILY 30 Days Qty: 30 0RF docusate sodium 100 mg capsule 100 mg PO BID Qty: 60 0RF simethicone [Gas Relief 80 (simethicone)] 80 mg tablet,chewable 80 mg PO TID-QID PRN (Reason: abdominal distention) Qty: 30 0RF gabapentin 300 mg capsule 300 mg PO TID 0RF omeprazole 40 mg capsule,delayed release(DR/EC) 40 mg PO DAILY 90 Days Qty: 90 1RF senna 8.6 mg capsule 8.6 mg PO BEDTIME PRN (Reason: constipation) 30 Days Qty: 30 1RF hydrocortisone acetate [Anusol-HC] 25 mg suppository 25 mg SC BID 12 Days Qty: 24 0RF Referrals: John Garay [Physician] - 2 days (Acid burning sensation abdomen. GERD. May need endoscopy.) Stand Alone Forms: Work/School Release Interventions: ED Discharge Assessment Last Done: 08/12/21 21:51 Discharge Date/Time: 08/12/21 21:51 Print Language: Prydeinig
[2021-08-12 20:17] LABS: Lipase 19 U/L (8-78)
== END 2021-08-12 21:51 | disposition home or self-care (01) ==
PROVIDERS: Physician Assistant; Emergency Provider Emergency Medicine Emergency Medical Services; PCP Internal Medicine
DX: K21.9 Gastro-esophageal reflux disease without esophagitis (principal); R43.8 Other disturbances of smell and taste; U09.9 Post COVID-19 condition, unspecified; Z20.822 Contact with and (suspected) exposure to COVID-19
CPT/HCPCS: 80053; 81003; 83690; 85025; 87635; 99282; 99283

== ENCOUNTER → 2021-09-21 12:00 | Outpatient (BNVA) | payer OTHER, SELFPAY | PROVIDERS: PCP Internal Medicine; Visit Provider Physician Assistant | DX: K21.9 Gastro-esophageal reflux disease without esophagitis (principal); Z78.9 Other specified health status | CPT/HCPCS: 99202 ==

== ENCOUNTER 2021-10-15 12:59 | Emergency (ER) | payer OTHER, SELFPAY | END 2021-10-15 15:14 | disposition left against medical advice (07) | PROVIDERS: Emergency Provider Emergency Medicine; PCP Internal Medicine | DX: M25.571 Pain in right ankle and joints of right foot (principal) ==

== ENCOUNTER 2022-04-06 10:49 | Outpatient (REF) | payer OTHER, SELFPAY ==
[2022-04-06 11:08] LABS: MANUAL DIFF FLAG NO
[2022-04-06 11:51] LABS: Basophils Absolute Auto 0.1 X10*3/uL (0.0-0.2); Basophils Percent Auto 0.7 % (0-2); Eosinophils Absolute Auto 0.1 X10*3/uL (0.0-0.4); Eosinophils Percent Auto 0.9 % (0-4); Hematocrit 47.9 % (42.0-52.0); Hemoglobin 15.4 g/dl (14.0-18.0); Imm Gran Abs Auto 0.04 X10*3/uL (0.00-0.03); Imm Gran Pct Auto 0.5 % (0.0-0.4); Lymphocytes Absolute Auto 1.6 X10*3/uL (1.2-4.9); Lymphocytes Percent Auto 19.2 % (20-40); Mean Corpuscular HGB Conc 32.2 g/dl (31.0-36.0); Mean Corpuscular Hemoglobin 25.3 pg (27.0-33.0); Mean Corpuscular Volume 78.7 fL (80.0-98.0); Mean Platelet Volume 10.2 fL (9.4-12.4); Monocytes Absolute Auto 0.8 X10*3/uL (0.1-1.2); Neutrophils Absolute Auto 5.5 x10*3/uL (2.0-8.3); Neutrophils Percent Auto 68.7 % (45-73); Platelet Count 314 X10*3/uL (160-400); Red Blood Count 6.09 X10*6/uL (4.60-5.80); White Blood Count 8.1 X10*3/uL (4.8-10.8)
[2022-04-06 12:12] LABS: Alanine Aminotransferase 28 U/L (0-40); Albumin Level 4.8 g/dL (3.5-5.0); Alkaline Phosphatase 109 U/L (39-117); Anion Gap 18 (12-20); Aspartate Amino Transferase 19 U/L (5-37); Bilirubin Total 0.7 mg/dL (0.0-1.0); Blood Urea Nitrogen 13 mg/dL (9-16); Calcium 9.8 mg/dL (8.4-10.2); Carbon Dioxide 24 mmol/L (22-29); Chloride 105 mmol/L (96-108); Estimated Glomerular Filt Rate > 60; Glucose Random 89 mg/dL (60-115); Potassium 4.6 mmol/L (3.3-5.1); Sodium 142 mmol/L (135-145); Total Protein 7.7 g/dL (6.5-8.0)
[2022-04-06 12:35] LABS: Thyroid Stimulating Hormone 0.49 uIU/mL (0.32-4.0)
== END 2022-04-06 10:50 | disposition home or self-care (01) ==
LOC: HO.LAB 10:49
PROVIDERS: PCP Internal Medicine; Visit Provider Clinical Nurse Specialist Psychiatric/Mental Health, Adult
DX: Z79.899 Other long term (current) drug therapy (principal)
CPT/HCPCS: 36415; 80053; 84443; 85025

== ENCOUNTER → 2022-06-07 13:57 | Outpatient (BNVA) | payer OTHER, SELFPAY | PROVIDERS: PCP Internal Medicine; Visit Provider Physician Assistant | DX: Z13.89 Encounter for screening for other disorder (principal) ==

== ENCOUNTER → 2022-10-12 07:53 | Outpatient (BNVA) | payer OTHER, SELFPAY | PROVIDERS: PCP Internal Medicine; Referring Provider Internal Medicine; Visit Provider Physician Assistant | DX: K64.9 Unspecified hemorrhoids (principal); K59.09 Other constipation; N50.819 Testicular pain, unspecified | CPT/HCPCS: 99212 ==

== ENCOUNTER 2022-10-17 13:54 | Outpatient (REF) | payer OTHER, SELFPAY ==
--- NOTE | ~2022-10-17 | US_ITS ---
EXAMINATION: US SCROTUM CLINICAL INFORMATION: Testicular pain. COMPARISON: None available. TECHNIQUE: A sonogram of the scrotum was performed assessing flanagan-scale appearance and color Doppler flow. Spectral Doppler analysis of the arterial and venous flow were performed in the testes bilaterally. FINDINGS: RIGHT: Right testicle measures 4.7 x 2.6 x 2.6 cm, volume 17 mL. No focal testicular parenchymal lesions are visualized. Spectral Doppler analysis of the arterial and venous flow is normal in the right testis. Right epididymal head is normal in size. Small right appendix epididymis. Small right hydrocele. No varicocele.. Right epididymal Doppler flow is normal. LEFT: Left testicle measures 3.7 x 2.3 x 3.3 cm, volume 15 mL. No focal testicular parenchymal lesions are visualized. Spectral Doppler analysis of the arterial and venous flow is in the left testis. Left epididymal head is normal in size. Small left hydrocele. No varicocele. Left epididymal Doppler flow is normal. US/US scrotum IMPRESSION: Small bilateral hydroceles otherwise unremarkable exam.
== END 2022-10-17 13:55 | disposition home or self-care (01) ==
LOC: HO.US 13:54
PROVIDERS: Visit Provider Nurse Practitioner Family
DX: N50.819 Testicular pain, unspecified (principal)
CPT/HCPCS: 76870

== ENCOUNTER 2023-01-05 07:48 | Emergency (ER) | payer OTHER, SELFPAY ==
[2023-01-05 07:51] VITALS: BP 129/83; PULSE 73; RESP 18; TEMP 36.5; O2SAT 97; BMI 27.4
--- NOTE | 2023-01-05 08:16 | ED.GENADULT ---
HPI - General Adult General Chief complaint: General Medical Stated complaint: pain in throat x 3 wks Time Seen by Provider: 01/05/23 07:58 Source: patient Mode of arrival: ambulatory Limitations: no limitations History of Present Illness HPI narrative: 37 yo male with a long standing tobacco smoking history presents to the ER with 3 weeks of right sided sore throat, hoarseness. No diff swallowing, diff breathing, rhinorrhea, congestion, cough, fevers, chills, weight loss, night sweats. Has not done any COVID testing. NO sick contact or recent travel. Related Data Previous Rx's Medication Instructions Recorded ketoconazole 2 % shampoo 1 appl topical 3XW 30 days #120 mL 05/19/21 methylcellulose (laxative) 500 mg 500 mg PO TID #90 tabs 09/21/21 tablet (Citrucel) docusate sodium 100 mg capsule 100 mg PO BID 30 days #60 caps 01/17/22 escitalopram oxalate 10 mg tablet 10 mg PO DAILY 30 days #30 tabs 02/09/22 hydroxyzine HCl 25 mg tablet 25 mg PO BEDTIME #30 tabs 03/20/22 gabapentin 300 mg capsule 300 mg PO TID 30 days #90 caps 04/22/22 selenium sulfide 1 % shampoo 5 ml topical 2XW 30 days #207 mL 04/23/22 (Dandruff Shampoo (selenium sulfide)) bisacodyl 10 mg rectal suppository 10 mg KS DAILY PRN constipation 06/07/22 (Dulcolax (bisacodyl)) #20 ea hydrocortisone 2.5 % topical cream 1 appl KS BEDTIME PRN hemorrhoids 06/07/22 with perineal applicator #30 grams (Proctosol HC) polyethylene glycol 3350 17 17 g PO DAILY #510 grams 06/07/22 gram/dose oral powder (Miralax) menthol 0.44 %-zinc oxide 20.6 % 1 appl topical BID PRN skin 10/12/22 topical ointment (Calmoseptine) irritation #113 grams sennosides 8.6 mg capsule (senna) 8.6 mg PO DAILY PRN constipation 10/12/22 30 days #30 caps omeprazole 40 mg capsule,delayed 40 mg PO DAILY 90 days #90 caps 12/26/22 release simethicone 80 mg chewable tablet 80 mg PO TID-QID PRN abdominal 12/26/22 (Gas Relief 80 (simethicone)) distention #30 tabs ibuprofen 600 mg tablet 600 mg PO Q8H PRN pain #30 tabs 01/05/23 loratadine 10 mg tablet (Claritin) 10 mg PO DAILY #30 tabs 01/05/23 Allergies Allergy/AdvReac Type Severity Reaction Status Date / Time No Known Allergies Allergy Verified 01/05/23 07:56 Review of Systems Review of Systems: Yes all other systems are reviewed and are negative Constitutional: Constitutional: Reports no additional constitutional complaints, Denies body ache(s), Denies chills, Denies fever(s), Denies headache(s) and Denies weakness Eyes: Eyes: Reports no additional eye complaints and Denies change in vision ENT: Reports system reviewed and no additional complaints, except as documented, Denies dizziness, Denies headache(s), Reports hoarseness, Denies nasal congestion, Denies nasal discharge, Denies neck pain and Reports sore throat Cardiovascular: Cardiovascular: Reports no additional cardiovascular complaints, Denies chest pain, Denies leg edema and Denies dyspnea Respiratory: Respiratory: Reports no additional respiratory complaints, Denies cough and Denies dyspnea Gastrointestinal: Gastrointestinal: Reports no additional gastrointestinal complaints, Denies abdominal pain, Denies diarrhea, Denies nausea and Denies vomiting Genitourinary: Genitourinary: Denies urinary incontinence Musculoskeletal: Musculoskeletal: Reports no additional musculoskeletal complaints, Denies back pain, Denies arthralgias, Denies joint swelling, Denies neck pain, Denies numbness and Denies tingling Integumentary/Breasts: Skin/Breast: Reports system reviewed and no additional complaints, except as docu and Denies rash Neurologic: Reports system reviewed and no additional complaints, except as documented, Denies dizziness, Denies headache(s), Denies numbness, Denies tingling and Denies weakness [facility] Past Medical History Attestation statement: The following information was validated with the patient. Source: old records reviewed and nursing notes reviewed Medical History Anxiety Blurry vision Constipation Lumbar spondylosis with myelopathy Moderate recurrent major depression Myxopapillary ependymoma of spinal cord Perineural cyst Surgical History History of ankle surgery History of lumbar surgery Family History Family History Mother Diabetes Stroke High blood pressure Sister Thyroid condition Social History Social History Housing: House Alcohol intake: current Alcohol intake frequency: a few times a week Alcohol type: beer Patient Tobacco Use Status: Former Tobacco user Tobacco use type: Cigarette e-Cigarette/Vaping Use: Never Used Second Hand Smoke Exposure: No Advance Directives: No Advance Directives Information Provided: Yes service: No Current occupational status: unemployed Cognitive needs: No Hearing needs: No Vision needs: No Physical Exam ED Vital Signs: Vital Signs - 24 hr 01/05/23 07:51 Temperature 97.7 F Pulse Rate 73 Respiratory Rate 18 Blood Pressure 129/83 Pulse Oximetry 97 Oxygen Delivery Method Room Air BMI result Body Mass Index 27.4 Const General: cooperative, healthy appearing, comfortable and no acute distress Orientation/consciousness: patient oriented x3 Limitations: no limitations HENMT Head: Yes normal to inspection Ears: hearing grossly normal bilaterally and TM's normal bilaterally General nose exam: Normal external nose present Face and sinus: Yes normal facial exam Throat: Yes posterior oropharynx normal, Yes tonsils normal and Yes uvula midline Eyes General: appearance normal, both eyes and all related structures Pupils: Equal, round and reactive pupils present Neck Neck: Yes normal visual inspection, Yes full ROM, Yes no lymphadenopathy and Yes no meningeal signs Thyroid: Thyroid normal Chest Chest palpation & inspection: normal inspection of the chest Resp Effort & Inspection: normal respiratory effort Auscultation: clear to auscultation bilaterally Cardio Rate: regular rate Rhythm: regular rhythm Peripheral pulses: Peripheral pulses 2+ throughout Skin General skin exam: no rashes or lesions noted Neuro General: patient oriented x3, moves all extremities and no meningeal signs Cranial nerves: Yes Equal, round and reactive pupils present Cognition (Neuro): normal cognition Gait exam (Neuro): Normal gait present Course Course Course Narrative: 914-Testing for flu, covid and strep are negative. Exam not c/w with strep pharyngitis. Consider underlying malignancy d.t complaints of hoarseness with tobacco smoking history. Patient should see ENT for further eval and will likely need to see PCP sooner for referral. This was explained in detail to the patient. Reviewed worrisome signs/symptoms with patient and when tos port gamble additional care. Comfortable with plan for discharge home. Medical Decision Making Medical Decision Making [facility] Narrative: 37 yo male here w/ history of tobacco smoking here with 3 weeks of right sided sore throat, hoarseness with no reports of diff swallowing, diff breathing, weight loss, night sweats. No URI symptoms, fevers, chills. On exam posterior oropharynx normal in appearance with no swelling/erythema/exudate. No lymphadenopathy. Thyroid normal to palpation. Will send testing for covid, flu, strep. We discussed at length if testing is negative patient will need to urgently follow-up with his PCP and seek referral for ENT for further evaluation and to r/o malignancy as cause. Differential Diagnosis Differential Diagnoses: The differential diagnosis associated with the presentation includes viral syndrome, influenza, strep pharyngitis, malignancy Exam not c/w with mononucleosis, [employer], RPA, ludwigs angina Lab Data [facility] Lab Attestation statement: I reviewed the patient's lab results. Labs: Lab Results 01/05/23 01/05/23 01/05/23 Range/Units 08:30 08:31 08:31 COVID-19 ([place]) Negative (Negative) COVID-19 Clin Com See Note Influenza Type A ([facility]) Negative (Negative) Influenza Type B ([facility]) Negative (Negative) Influenza A & B Note See Note S. pyogenes GrpA [facility] Negative (Negative) Discharge Plan Discharge Clinical Impression: Sore throat Patient Disposition: Home, Self-Care Instructions: Pharyngitis (ED) Additional Instructions: Testing for flu, covid, and strep are negative Take the claritin daily Take the motrin/tylenol for pain as needed It is very important that you follow-up with your PCP to get a referral to see an ENT specialist. You may need further evaluation of your sore throat due to your history of tobacco smoking which increases your risk of cancer. Return for difficulty breathing, difficulty swallowing Prescriptions: New ibuprofen 600 mg tablet 600 mg PO Q8H PRN (Reason: pain) Qty: 30 0RF loratadine [Claritin] 10 mg tablet 10 mg PO DAILY Qty: 30 0RF No Action ketoconazole 2 % shampoo 1 appl topical 3XW 30 Days Qty: 120 3RF docusate sodium 100 mg capsule 100 mg PO BID 30 Days Qty: 60 1RF hydroxyzine HCl 25 mg tablet 25 mg PO BEDTIME Qty: 30 0RF gabapentin 300 mg capsule 300 mg PO TID 30 Days Qty: 90 1RF Dandruff Shampoo (selenium) 1 % shampoo 5 ml topical 2XW 30 Days Qty: 207 1RF Rx Instructions: lather into wet hair; leave in place for approximately 3 mins ; rinse simethicone [Gas Relief 80 (simethicone)] 80 mg tablet,chewable 80 mg PO TID-QID PRN (Reason: abdominal distention) Qty: 30 3RF omeprazole 40 mg capsule,delayed release(DR/EC) 40 mg PO DAILY 90 Days Qty: 90 1RF escitalopram oxalate 10 mg tablet 10 mg PO DAILY 30 Days Qty: 30 0RF Citrucel 500 mg tablet 500 mg PO TID Qty: 90 5RF bisacodyl [Dulcolax (bisacodyl)] 10 mg suppository 10 mg KS DAILY PRN (Reason: constipation) Qty: 20 0RF polyethylene glycol 3350 [Miralax] 17 gram/dose powder 17 g PO DAILY Qty: 510 6RF hydrocortisone [Proctosol HC] 2.5 % cream with perineal applicator 1 appl KS BEDTIME PRN (Reason: hemorrhoids) Qty: 30 3RF senna 8.6 mg capsule 8.6 mg PO DAILY PRN (Reason: constipation) 30 Days Qty: 30 1RF menthol-zinc oxide [Calmoseptine] 0.44-20.6 % ointment 1 appl topical BID PRN (Reason: skin irritation) Qty: 113 1RF
[2023-01-05 08:46] LABS: IDNOW Serial# 08D9AD1C; Strep A Nucleic Acid Negative (Negative)
[2023-01-05 08:53] LABS: COVID-19 Test Negative (Negative); IDNOW Serial# 9DB6401D; IDNOW Serial# BCCEAD1C; Influenza A Negative (Negative); Influenza B2 Negative (Negative)
== END 2023-01-05 09:28 | disposition home or self-care (01) ==
PROVIDERS: Nurse Practitioner Family; Emergency Provider Emergency Medicine Emergency Medical Services; PCP Internal Medicine
DX: R07.0 Pain in throat (principal); F17.210 Nicotine dependence, cigarettes, uncomplicated; Z71.6 Tobacco abuse counseling; Z20.822 Contact with and (suspected) exposure to COVID-19; Z20.828 Contact with and (suspected) exposure to other viral communicable diseases
CPT/HCPCS: 87502; 87635; 87651; 99282; 99283

== ENCOUNTER 2023-05-14 05:44 | Emergency (ER) | payer OTHER, SELFPAY ==
--- NOTE | ~2023-05-14 | CT_ITS ---
EXAMINATION: CT ABDOMEN AND PELVIS WITHOUT CONTRAST CLINICAL INFORMATION: Left flank pain. COMPARISON: None available. TECHNIQUE: Multidetector volumetric imaging was performed from the superior aspect of the liver through the pubic symphysis. Sagittal and coronal reformatted images were obtained on the technologist's workstation. This CT examination was performed using dose optimization techniques as appropriate, variously including the following: *Automated exposure control *Adjustment of mA and/or kV according to patient size (this includes techniques or standardized protocols for targeted exams where dose is matched to indication/reason for exam; i.e. extremities or head) *Use of iterative reconstruction technique DLP: 553 mGy-cm FINDINGS: LUNG BASES: The visualized lung bases are unremarkable. No pericardial or pleural effusion. LIVER, GALLBLADDER, AND BILIARY TREE: The liver is normal in size, shape, and attenuation. No focal hepatic lesion or biliary ductal dilatation is present. The gallbladder is unremarkable with no evidence of radiopaque gallstones, gallbladder wall thickening, or obvious pericholecystic inflammatory changes. PANCREAS: Unremarkable. No inflammatory changes seen. SPLEEN: Unremarkable. ADRENAL GLANDS: Unremarkable. KIDNEYS AND URETERS: The kidneys are normal in size, shape, and attenuation. No hydronephrosis, hydroureter, or calculi seen. No perinephric stranding. BLADDER: Bladder is nondistended. There is urinary bladder wall thickening, which may be related to lack of distention, correlate with urinalysis. GASTROINTESTINAL TRACT: Stomach is partially distended. No bowel obstruction. Moderate volume stool in the large colon. No colonic wall thickening or pericolonic inflammatory changes. Normal appendix. No ascites. No free air. ABDOMINAL WALL: No significant hernia is appreciated. LYMPH NODES: Subcentimeter retroperitoneal lymph nodes. No pathologically enlarged lymph nodes are identified. VASCULAR: Normal caliber aorta. PELVIC VISCERA: Unremarkable. OSSEOUS STRUCTURES: The previous MRI demonstrated an expansile mass in the sacral spinal canal causing expansion and bony remodeling. In today's CT scan, there is remodeling of the S1-S3 segments. There is a soft tissue mass with multiple foci of calcifications and expansile appearance, within the sacral spinal canal. Linear focus of increased attenuation along the posterior elements in this region, could reflect postsurgical changes. No acute fractures identified in the visualized thoracic or lumbar vertebrae. Mild symphysis pubis degeneration. No acute rib fractures seen. CT/CT abdomen pelvis wo IV con IMPRESSION: 1. No evidence of renal or ureteral calculi. No evidence of hydronephrosis. 2. Urinary bladder wall is thickened, which may be related to lack of distention versus other etiologies. Correlate with urinalysis. 3. Expansile mass with multiple foci of calcifications in the sacral spinal canal, with abnormal appearance of the S1-S3 segments, with bony remodeling. This was previously evaluated on the MRI 09/16/2020, see MR report. Clinically correlate, correlate with clinical history. Repeat MRI for further evaluation as clinically indicated. 4. No acute intra-abdominal process is otherwise identified. Fleischner guidelines were followed.
[2023-05-14 05:52] VITALS: BP 117/77; PULSE 74; RESP 19; TEMP 36.6; O2SAT 99; BMI 26.9
[2023-05-14 05:59] LABS: MANUAL DIFF FLAG NO
[2023-05-14 06:00] LABS: Basophils Absolute Auto 0.1 X10*3/uL (0.0-0.2); Basophils Percent Auto 0.7 % (0-2); Eosinophils Absolute Auto 0.1 X10*3/uL (0.0-0.4); Eosinophils Percent Auto 1.4 % (0-4); Hemoglobin 15.3 g/dl (14.0-18.0); Imm Gran Abs Auto 0.04 X10*3/uL (0.00-0.03); Imm Gran Pct Auto 0.5 % (0.0-0.4); Mean Corpuscular HGB Conc 32.6 g/dl (31.0-36.0); Mean Corpuscular Hemoglobin 25.6 pg (27.0-33.0); Mean Corpuscular Volume 78.6 fL (80.0-98.0); Mean Platelet Volume 9.8 fL (9.4-12.4); Monocytes Absolute Auto 0.8 X10*3/uL (0.1-1.2); Monocytes Percent Auto 10.3 % (2-11); Neutrophils Absolute Auto 5.1 x10*3/uL (2.0-8.3); Neutrophils Percent Auto 63.1 % (45-73); Platelet Count 310 X10*3/uL (160-400); Red Blood Count 5.98 X10*6/uL (4.60-5.80); Red Cell Distribution Width 15.2 % (11.0-16.0); White Blood Count 8.1 X10*3/uL (4.8-10.8)
[2023-05-14 06:13] LABS: Alanine Aminotransferase 32 U/L (0-40); Albumin Level 4.5 g/dL (3.5-5.0); Alkaline Phosphatase 81 U/L (39-117); Anion Gap 13 (12-20); Aspartate Amino Transferase 24 U/L (5-37); Bilirubin Total 0.8 mg/dL (0.0-1.0); Blood Urea Nitrogen 13 mg/dL (9-16); Calcium 9.9 mg/dL (8.4-10.2); Carbon Dioxide 25 mmol/L (22-29); Chloride 107 mmol/L (96-108); Estimated Glomerular Filt Rate > 60; Glucose Random 95 mg/dL (60-115); Lipase 13 U/L (8-78); Potassium 4.3 mmol/L (3.3-5.1); Sodium 141 mmol/L (135-145); Total Protein 7.6 g/dL (6.5-8.0)
[2023-05-14 06:34] VITALS: BP 117/77; PULSE 74; RESP 19; TEMP 36.6; O2SAT 99
--- NOTE | 2023-05-14 06:35 | PC.NURSE ---
Pt ca&ox4, no signs of distress. Pt reports left sided flank pain that radiates into LLQ and L testicle. Pt reports difficulty with voiding and bowel movements. Plan of care ongoing.
--- NOTE | 2023-05-14 07:14 | ED.ABDPAIN ---
HPI - Abdominal Pain General Chief Complaint: Abdominal Pain Stated Complaint: stomach pain radiates to back Time Seen by Provider: 05/14/23 06:41 Source: patient and RN notes reviewed Mode of arrival: ambulatory Limitations: no limitations History of Present Illness HPI narrative: This is a 38-year-old male presenting to the emergency department for evaluation of left-sided back pain and abdominal pain x3 days. Patient reports that several days ago he lifted a tire, unsure this caused him to have back pain. He states that since this occurred, he has had worsening back pain that now radiates into his left lower quadrant and occasionally into his left testicle. He states that the pain worsens with positional changes. He denies any fevers or chills. He denies dysuria, hematuria. He endorses urinary urgency. No frequency. No penile discharge. No testicular swelling or pain. He is sexually active, does express some concerns about sexually transmitted infections, but would not want treatment today. He states that several years ago he had a tumor that was removed from his back by Dr. Potter 2 years ago, he states that since this procedure, he has had difficulty with urination and having a bowel movement. He states that it causes him to strain more than usual. He states no changes in bladder or bowel behavior since onset of his back pain. Denies history of kidney stones. No urinary or bowel incontinence. No urinary or bowel retention. No saddle anesthesia. No other complaints or concerns at this time. MD elicited complaint: abdominal pain and flank pain Pertinent past history: constipation Onset (ago): day(s) Pain Consistency: constant Location: L flank Severity: moderate Quality: aching Radiation: LLQ and L flank Exacerbating factors: movement Relieving factors: rest Associated symptoms: denies other symptoms Related Data Previous Rx's Medication Instructions Recorded ketoconazole 2 % shampoo 1 appl topical 3XW 30 days #120 mL 05/19/21 methylcellulose (laxative) 500 mg 500 mg PO TID #90 tabs 09/21/21 tablet (Citrucel) escitalopram oxalate 10 mg tablet 10 mg PO DAILY 30 days #30 tabs 02/09/22 gabapentin 300 mg capsule 300 mg PO TID 30 days #90 caps 04/22/22 selenium sulfide 1 % shampoo 5 ml topical 2XW 30 days #207 mL 04/23/22 (Dandruff Shampoo (selenium sulfide)) bisacodyl 10 mg rectal suppository 10 mg OK DAILY PRN constipation 06/07/22 (Dulcolax (bisacodyl)) #20 ea hydrocortisone 2.5 % topical cream 1 appl OK BEDTIME PRN hemorrhoids 06/07/22 with perineal applicator #30 grams (Proctosol HC) polyethylene glycol 3350 17 17 g PO DAILY #510 grams 06/07/22 gram/dose oral powder (Miralax) menthol 0.44 %-zinc oxide 20.6 % 1 appl topical BID PRN skin 10/12/22 topical ointment (Calmoseptine) irritation #113 grams sennosides 8.6 mg capsule (senna) 8.6 mg PO DAILY PRN constipation 10/12/22 30 days #30 caps omeprazole 40 mg capsule,delayed 40 mg PO DAILY 90 days #90 caps 12/26/22 release simethicone 80 mg chewable tablet 80 mg PO TID-QID PRN abdominal 12/26/22 (Gas Relief 80 (simethicone)) distention #30 tabs ibuprofen 600 mg tablet 600 mg PO Q8H PRN pain #30 tabs 01/05/23 loratadine 10 mg tablet (Claritin) 10 mg PO DAILY #30 tabs 01/05/23 docusate sodium 100 mg capsule 100 mg PO BID 30 days #60 caps 02/15/23 hydroxyzine HCl 25 mg tablet 25 mg PO BEDTIME #30 tabs 04/11/23 cyclobenzaprine 5 mg tablet 5 mg PO TID PRN muscle spasm #14 05/14/23 tabs ibuprofen 600 mg tablet 600 mg PO Q6H PRN pain #30 tabs 05/14/23 lidocaine 5 % topical patch 1 patch topical DAILY #30 ea 05/14/23 (Lidoderm) Allergies Allergy/AdvReac Type Severity Reaction Status Date / Time No Known Allergies Allergy Verified 05/14/23 05:51 Review of Systems Review of Systems Yes all other systems are reviewed and are negative Constitutional: Reports as per [facility] Past Medical History Attestation statement: The following information was validated with the patient. 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 Anxiety Blurry vision Perineural cyst Constipation Lumbar spondylosis with myelopathy Surgical History History of lumbar surgery History of ankle surgery Family History Family History Mother Diabetes Stroke High blood pressure Sister Thyroid condition Social History Social History Housing: House Alcohol intake: current Alcohol intake frequency: a few times a week Alcohol type: beer Patient Tobacco Use Status: Former Tobacco user Tobacco use type: Cigarette Smoked in Last 30 Days: No e-Cigarette/Vaping Use: Never Used Second Hand Smoke Exposure: No Use of substances other than those prescribed or required for medical reasons: No Advance Directives: No Advance Directives Information Provided: No service: No Current occupational status: unemployed Cognitive needs: No Hearing needs: No Vision needs: No Physical Exam ED Vital Signs: Vital Signs - 24 hr 05/14/23 05:52 05/14/23 06:34 Temperature 98 F 98 F Pulse Rate 74 74 Respiratory Rate 19 19 Blood Pressure 117/77 117/77 Pulse Oximetry 99 99 Oxygen Delivery Method Room Air Room Air BMI result Body Mass Index 26.9 Const General: cooperative, comfortable and no acute distress Orientation/consciousness: patient oriented x3 Limitations: no limitations HENMT Head: Yes normal to inspection, Yes normocephalic and Yes atraumatic Ears: hearing grossly normal bilaterally General nose exam: Normal external nose present Face and sinus: Yes normal facial exam Mouth: Normal oral and palatal mucosa present, oropharynx normal and moist mucous membranes Throat: Yes posterior oropharynx normal Eyes General: appearance normal, both eyes and all related structures Eyelids: Yes eyelids normal Conjunctivae: conjunctivae normal Sclerae: sclerae normal Pupils: Equal, round and reactive pupils present EOM: EOMs intact bilaterally Neck Neck: Yes normal visual inspection, Yes full ROM and Yes no lymphadenopathy Lymphatic: no lymphadenopathy noted Chest Chest palpation & inspection: normal inspection of the chest Resp Effort & Inspection: normal respiratory effort and able to speak in complete sentences Auscultation: clear to auscultation bilaterally, no crackles, no rales, no rhonchi and no wheezes Cardio Rate: regular rate Rhythm: regular rhythm Heart sounds: S1 normal heart sound present and S2 normal heart sound present GI Other: Left lower quadrant with mild tenderness palpation. No rebound or guarding. Inspection: Yes normal to inspection Other: Deferred exam General: Yes no CVA tenderness Back/Spine/Pelvis Other: Mild tenderness palpation along the left flank and left paraspinous muscles. Midline spine nontender. Patellar reflexes are 2+. Distal sensation circulation intact. Strength 5/5 in lower extremities. Patient is ambulatory with steady gait. Back: no CVA tenderness Skin General skin exam: no rashes or lesions noted Trauma: no lacerations or abrasions Wounds: no wounds Neuro General: patient oriented x3 and moves all extremities Cranial nerves: Yes Equal, round and reactive pupils present Extrem General: Yes normal to inspection Right upper extremity: normal to inspection Left upper extremity: normal to inspection Right lower extremity: normal to inspection Left lower extremity: normal to inspection Course Reevaluation(s) Reevaluation #1: CT scan returns, revealing no kidney stone, there isn't expansile mass with multiple foci of calcifications in the sacral spinal canal with abnormal appearance of the S1 and S3 segments with bony remodeling. This was evaluated on MRI in 2020. Patient had surgery performed by Dr. Potter in 2020, we have no other imaged for comparison after the procedure. I discussed this report with my attending physician, Dr. Landis, who given patient has no red flag back symptoms, patient can follow-up outpatient with neurosurgeon, Dr. Potter. I discussed findings with patient and how we are unable to discern whether not this is a musculoskeletal problem or pain related to these findings, CT scan. I urged the importance of following up with Dr. Potter, advised to call tomorrow for evaluation. Patient had moderate relief after receiving Toradol injection, will discharge on ibuprofen, Flexeril, and Lidoderm patches. Given return precautions. Patient understands and agrees with plan. Workup otherwise unremarkable. No other complaints or concerns at this time. Time: 10:40 Medical Decision Making Medical Decision Making MDM Narrative: 38-year-old male presenting to the emergency department for evaluation of left flank pain x3 days. He endorses some recent injury over the last several days however now reports that the pain radiates into his left abdomen and occasionally into his left testicle. On arrival, vital signs within normal limits. Patient is nontoxic appearing. On examination, patient has no CVA tenderness with tenderness palpation of the left lower quadrant, pain worsens with positional changes. No history of IV drug use. No red flag back symptoms on examination. Patient defers examination at this time, denies any testicular swelling or pain. Plan: Labs, UA, ct/ng, CT abdomen and pelvis, postvoid ultrasound Differential Diagnosis Differential Diagnoses: The differential diagnosis associated with the presentation includes Kidney stone, muscle spasm, constipation Admission/Observation Consideration of admission/observation: Escalation of care including admission/observation considered Escalation of care including admission observation was considered given left lower quadrant pain Lab Data MDM Lab Attestation statement: I reviewed the patient's lab results. No leukocytosis, stable H&H, liver enzymes and lipase within normal limits. 05/14/23 05:55 05/14/23 05:55 Labs: Lab Results 05/14/23 05/14/23 Range/Units 05:55 08:00 WBC 8.1 (4.8-10.8) X10*3/uL RBC 5.98 H (4.60-5.80) X10*6/uL Hgb 15.3 (14.0-18.0) g/dl Hct 47.0 (42.0-52.0) % MCV 78.6 L (80.0-98.0) fL MCH 25.6 L (27.0-33.0) pg MCHC 32.6 (31.0-36.0) g/dl RDW 15.2 (11.0-16.0) % Plt Count 310 (160-400) X10*3/uL MPV 9.8 (9.4-12.4) fL Immature Gran % (Auto) 0.5 H (0.0-0.4) % Neut % (Auto) 63.1 (45-73) % Lymph % (Auto) 24.0 (20-40) % Dewitt % (Auto) 10.3 (2-11) % Eos % (Auto) 1.4 (0-4) % Baso % (Auto) 0.7 (0-2) % Lymph # (Auto) 2.0 (1.2-4.9) X10*3/uL Dewitt # (Auto) 0.8 (0.1-1.2) X10*3/uL Eos # (Auto) 0.1 (0.0-0.4) X10*3/uL Baso # (Auto) 0.1 (0.0-0.2) X10*3/uL Abs Immat Gran (auto) 0.04 H (0.00-0.03) X10*3/uL Absolute Neuts (auto) 5.1 (2.0-8.3) x10*3/uL Absolute Nucleated RBC 0.000 (0.0-0.012) X10*3/uL Nucleated RBC % (auto) 0.0 (0.0-0.2) /100WBC Sodium 141 (135-145) mmol/L Potassium 4.3 (3.3-5.1) mmol/L Chloride 107 (96-108) mmol/L Carbon Dioxide 25 (22-29) mmol/L Anion Gap 13 (12-20) BUN 13 (9-16) mg/dL Creatinine 1.05 (0.5-1.4) mg/dL Estim Creat Clear Calc 113.0 Estimated GFR > 60 Random Glucose 95 (60-115) mg/dL Calcium 9.9 (8.4-10.2) mg/dL Total Bilirubin 0.8 (0.0-1.0) mg/dL AST 24 (5-37) U/L ALT 32 (0-40) U/L Alkaline Phosphatase 81 (39-117) U/L Total Protein 7.6 (6.5-8.0) g/dL Albumin 4.5 (3.5-5.0) g/dL Lipase 13 (8-78) U/L Urine Color Yellow Urine Appearance Clear Urine pH 6.0 (5.0-9.0) Ur Specific Vevay 1.025 (1.005-1.025) Urine Protein Negative (Neg-Trace) mg/dL Urine Glucose (UA) Negative (Negative) mg/dL Urine Ketones Negative (Negative) mg/dL Urine Blood Negative (Negative) Urine Nitrite Negative (Negative) Ur Leukocyte Esterase Negative (Negative) Urine RBC 0-2 (0-2) /HPF Urine WBC 0-5 (0-5) /HPF Ur Squamous Epith Cells 0-2 (0-2) /HPF Urine Bacteria None Seen (None Seen) Hyaline Casts 0-2 (0-2) /LPF Radiology Impression Discussion of test interpretation with radiology: I have reviewed the radiologist's reading. Radiologist Impression: EXAMINATION: CT ABDOMEN AND PELVIS WITHOUT CONTRAST CLINICAL INFORMATION: Left flank pain. COMPARISON: None available. TECHNIQUE: Multidetector volumetric imaging was performed from the superior aspect of the liver through the pubic symphysis. Sagittal and coronal reformatted images were obtained on the technologist's workstation. This CT examination was performed using dose optimization techniques as appropriate, variously including the following: *Automated exposure control *Adjustment of mA and/or kV according to patient size (this includes techniques or standardized protocols for targeted exams where dose is matched to indication/reason for exam; i.e. extremities or head) *Use of iterative reconstruction technique DLP: 553 mGy-cm FINDINGS: LUNG BASES: The visualized lung bases are unremarkable. No pericardial or pleural effusion. LIVER, GALLBLADDER, AND BILIARY TREE: The liver is normal in size, shape, and attenuation. No focal hepatic lesion or biliary ductal dilatation is present. The gallbladder is unremarkable with no evidence of radiopaque gallstones, gallbladder wall thickening, or obvious pericholecystic inflammatory changes. PANCREAS: Unremarkable. No inflammatory changes seen. SPLEEN: Unremarkable. ADRENAL GLANDS: Unremarkable. KIDNEYS AND URETERS: The kidneys are normal in size, shape, and attenuation. No hydronephrosis, hydroureter, or calculi seen. No perinephric stranding. BLADDER: Bladder is nondistended. There is urinary bladder wall thickening, which may be related to lack of distention, correlate with urinalysis. GASTROINTESTINAL TRACT: Stomach is partially distended. No bowel obstruction. Moderate volume stool in the large colon. No colonic wall thickening or pericolonic inflammatory changes. Normal appendix. No ascites. No free air. ABDOMINAL WALL: No significant hernia is appreciated. LYMPH NODES: Subcentimeter retroperitoneal lymph nodes. No pathologically enlarged lymph nodes are identified. VASCULAR: Normal caliber aorta. PELVIC VISCERA: Unremarkable. OSSEOUS STRUCTURES: The previous MRI demonstrated an expansile mass in the sacral spinal canal causing expansion and bony remodeling. In today's CT scan, there is remodeling of the S1-S3 segments. There is a soft tissue mass with multiple foci of calcifications and expansile appearance, within the sacral spinal canal. Linear focus of increased attenuation along the posterior elements in this region, could reflect postsurgical changes. No acute fractures identified in the visualized thoracic or lumbar vertebrae. Mild symphysis pubis degeneration. No acute rib fractures seen. CT/CT abdomen pelvis wo IV con IMPRESSION: 1. No evidence of renal or ureteral calculi. No evidence of hydronephrosis. 2. Urinary bladder wall is thickened, which may be related to lack of distention versus other etiologies. Correlate with urinalysis. 3. Expansile mass with multiple foci of calcifications in the sacral spinal canal, with abnormal appearance of the S1-S3 segments, with bony remodeling. This was previously evaluated on the MRI 09/16/2020, see MR report. Clinically correlate, correlate with clinical history. Repeat MRI for further evaluation as clinically indicated. 4. No acute intra-abdominal process is otherwise identified. Fleischner guidelines were followed. Dictated By: Felton Ferguson MD Medications Administered Discontinued Medications Generic Name Dose Route Start Last Admin Trade Name Freq PRN Reason Stop Dose Admin Ketorolac Tromethamine 30 mg 05/14/23 06:56 05/14/23 07:58 Ketorolac Tromethamine 30 Mg/Ml Vial IM 05/14/23 06:57 30 mg ONCE ONE Administration Discharge Plan Discharge Clinical Impression: Back pain, Abnormal abdominal CT scan Patient Disposition: Home, Self-Care Instructions: Acute Low Back Pain (ED), Back Pain (ED) Additional Instructions: Your seen in the emergency department due to back pain. Your CT scan shows an expansile mass with multiple foci of calcifications in the sacral spinal canal with abnormal appearance of the S1-S3 segments, with bony remodeling. We do not have your images after you had your surgery performed therefore it is difficult for us to have this comparison of whether not these are new findings or are old findings. You need to follow-up with your neurosurgeon, Dr. Potter. Call tomorrow to make an appointment. It is unclear whether not your back pain is due to these findings on your CT scan or if this is due to a musculoskeletal problem. Please take prescribed ibuprofen, muscle relaxant, and lidocaine patches as needed for pain. Please be aware that the muscle relaxant, Flexeril, may cause drowsiness, do not drink alcohol or drive while taking this medication. If any new or worsening symptoms occur including but not limited to numbness and tingling into your groin, urinary or bowel incontinence, or changes in your bladder or bowel, please seek emergent care. Follow-up with your primary care physician. Prescriptions: New ibuprofen 600 mg tablet 600 mg PO Q6H PRN (Reason: pain) Qty: 30 0RF cyclobenzaprine 5 mg tablet 5 mg PO TID PRN (Reason: muscle spasm) Qty: 14 0RF lidocaine [Lidoderm] 5 % adhesive patch,medicated 1 patch topical DAILY Qty: 30 0RF Rx Instructions: leave on most painful area for up to 12 hrs No Action ketoconazole 2 % shampoo 1 appl topical 3XW 30 Days Qty: 120 3RF gabapentin 300 mg capsule 300 mg PO TID 30 Days Qty: 90 1RF Dandruff Shampoo (selenium) 1 % shampoo 5 ml topical 2XW 30 Days Qty: 207 1RF Rx Instructions: lather into wet hair; leave in place for approximately 3 mins ; rinse simethicone [Gas Relief 80 (simethicone)] 80 mg tablet,chewable 80 mg PO TID-QID PRN (Reason: abdominal distention) Qty: 30 3RF omeprazole 40 mg capsule,delayed release(DR/EC) 40 mg PO DAILY 90 Days Qty: 90 1RF docusate sodium 100 mg capsule 100 mg PO BID 30 Days Qty: 60 1RF hydroxyzine HCl 25 mg tablet 25 mg PO BEDTIME Qty: 30 0RF ibuprofen 600 mg tablet 600 mg PO Q8H PRN (Reason: pain) Qty: 30 0RF loratadine [Claritin] 10 mg tablet 10 mg PO DAILY Qty: 30 0RF escitalopram oxalate 10 mg tablet 10 mg PO DAILY 30 Days Qty: 30 0RF Citrucel 500 mg tablet 500 mg PO TID Qty: 90 5RF bisacodyl [Dulcolax (bisacodyl)] 10 mg suppository 10 mg OK DAILY PRN (Reason: constipation) Qty: 20 0RF polyethylene glycol 3350 [Miralax] 17 gram/dose powder 17 g PO DAILY Qty: 510 6RF hydrocortisone [Proctosol HC] 2.5 % cream with perineal applicator 1 appl OK BEDTIME PRN (Reason: hemorrhoids) Qty: 30 3RF senna 8.6 mg capsule 8.6 mg PO DAILY PRN (Reason: constipation) 30 Days Qty: 30 1RF menthol-zinc oxide [Calmoseptine] 0.44-20.6 % ointment 1 appl topical BID PRN (Reason: skin irritation) Qty: 113 1RF
[2023-05-14] MEDS: Ketorolac Tromethamine 30 MG/ML VIAL IM (07:58)
[2023-05-14 08:08] LABS: Appearance Urine Clear; Color Urine Yellow; Glucose Urine UA Negative (Negative); Leukocyte Esterase Urine Negative (Negative); Nitrite Urine Negative (Negative); Specific Gravity - Urine 1.025 (1.005-1.025); Urine Blood Negative (Negative); Urine Ketones Negative (Negative); Urine Protein Negative (Neg-Trace)
[2023-05-14 08:18] LABS: Bacteria Urine None Seen (None Seen); Hyaline Casts Urine 0-2 /LPF (0-2); RBC Urine 0-2 /HPF (0-2); Squamous Epithelial Cell Urine 0-2 /HPF (0-2); WBC Urine 0-5 /HPF (0-5)
--- NOTE | 2023-05-14 09:48 | PC.NURSE ---
Bladder scanned for 104, provider aware
[2023-05-14 10:44] LABS: CT PCR NOT DETECTED (Not Detect.); NG PCR NOT DETECTED (Not Detect.)
== END 2023-05-14 11:26 | disposition home or self-care (01) ==
PROVIDERS: Physician Assistant Medical; Emergency Provider Emergency Medicine
DX: R93.5 Abnormal findings on diagnostic imaging of other abdominal regions, including retroperitoneum (principal); R10.9 Unspecified abdominal pain; M54.9 Dorsalgia, unspecified; R10.32 Left lower quadrant pain; Z72.89 Other problems related to lifestyle; Z79.899 Other long term (current) drug therapy
CPT/HCPCS: 0353U; 36415; 74176; 80053; 81001; 83690; 85025; 96372; 99284; J1885

== ENCOUNTER 2023-07-01 11:40 | Emergency (ER) | payer OTHER, SELFPAY ==
--- NOTE | ~2023-07-01 | XR_ITS ---
EXAMINATION: XR chest 2V CLINICAL INFORMATION: Chest pressure COMPARISON: No prior chest x-ray available in our system for comparison at the time of this dictation. TECHNIQUE: XR chest 2V, 2 Views Lungs and Krystle: Both lungs are clear. Pleura: Normal. Costophrenic angles are sharp. No pneumothorax. Heart: The heart is normal in size. Mediastinum: The mediastinum is within normal limits.. Bones: Skeletal structures included are normal for patient's age. XR/XR chest 2V IMPRESSION: No radiographic evidence of acute cardiopulmonary disease.
--- NOTE | 2023-07-01 11:41 | ECG_ITS ---
Test Reason : CP Blood Pressure : / mmHG Vent. Rate : 090 BPM Atrial Rate : 090 BPM P-R Int : 146 ms QRS Dur : 088 ms QT Int : 370 ms P-R-T Axes : 038 -28 051 degrees QTc Int : 452 ms Normal sinus rhythm Normal ECG When compared with ECG of 18-SEP-2020 21:49, Premature ventricular complexes are no longer Present Referred By: Leda Bowser Electronically Signed By:FELIBERTO INGRAM
[2023-07-01 11:47] VITALS: BP 123/83; PULSE 92; RESP 18; TEMP 37; O2SAT 98; BMI 28.7
--- NOTE | 2023-07-01 11:53 | ED_ITS ---
HPI - Chest Pain General Chief Complaint: Chest Pain Stated Complaint: chest pain Time Seen by Provider: 07/01/23 12:30 Source: patient Mode of arrival: ambulatory History of Present Illness HPI narrative: 38-year-old male without significant past medical history presents with 1 month of chest discomfort that he describes as sharp and burning in nature, he states he is on omeprazole and reports associated burning and soreness in the back of his throat but denies any associated fever, chills, new cough. Related Data Previous Rx's Medication Instructions Recorded ketoconazole 2 % shampoo 1 appl topical 3XW 30 days #120 mL 05/19/21 methylcellulose (laxative) 500 mg 500 mg PO TID #90 tabs 09/21/21 tablet (Citrucel) escitalopram oxalate 10 mg tablet 10 mg PO DAILY 30 days #30 tabs 02/09/22 selenium sulfide 1 % shampoo 5 ml topical 2XW 30 days #207 mL 04/23/22 (Dandruff Shampoo (selenium sulfide)) bisacodyl 10 mg rectal suppository 10 mg TN DAILY PRN constipation 06/07/22 (Dulcolax (bisacodyl)) #20 ea hydrocortisone 2.5 % topical cream 1 appl TN BEDTIME PRN hemorrhoids 06/07/22 with perineal applicator #30 grams (Proctosol HC) polyethylene glycol 3350 17 17 g PO DAILY #510 grams 06/07/22 gram/dose oral powder (Miralax) menthol 0.44 %-zinc oxide 20.6 % 1 appl topical BID PRN skin 10/12/22 topical ointment (Calmoseptine) irritation #113 grams sennosides 8.6 mg capsule (senna) 8.6 mg PO DAILY PRN constipation 10/12/22 30 days #30 caps omeprazole 40 mg capsule,delayed 40 mg PO DAILY 90 days #90 caps 12/26/22 release simethicone 80 mg chewable tablet 80 mg PO TID-QID PRN abdominal 12/26/22 (Gas Relief 80 (simethicone)) distention #30 tabs ibuprofen 600 mg tablet 600 mg PO Q8H PRN pain #30 tabs 01/05/23 loratadine 10 mg tablet (Claritin) 10 mg PO DAILY #30 tabs 01/05/23 docusate sodium 100 mg capsule 100 mg PO BID 30 days #60 caps 02/15/23 hydroxyzine HCl 25 mg tablet 25 mg PO BEDTIME #30 tabs 04/11/23 cyclobenzaprine 5 mg tablet 5 mg PO TID PRN muscle spasm #14 05/14/23 tabs ibuprofen 600 mg tablet 600 mg PO Q6H PRN pain #30 tabs 05/14/23 lidocaine 5 % topical patch 1 patch topical DAILY #30 ea 05/14/23 (Lidoderm) gabapentin 300 mg capsule 300 mg PO TID 30 days #90 caps 05/17/23 Allergies Allergy/AdvReac Type Severity Reaction Status Date / Time No Known Allergies Allergy Verified 05/14/23 05:51 Review of Systems 2 Review of Systems: Pertinent positives and negatives as stated in the HPI. [facility] Past Medical History Source: nursing notes reviewed Onset Date is defined in the Problem List Problems that require an onset date and time if occurred within 24 hrs of arrival to the ED Aortic Dissection and Rupture; Neurologic impairment; Cardiopulmonary Arrest; Endotracheal Intubation; Insertion or Replacement of Mechanical Circulatory Assist Device 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 Anxiety Blurry vision Perineural cyst Constipation Lumbar spondylosis with myelopathy Surgical History History of lumbar surgery History of ankle surgery Family History Family History Mother Diabetes Stroke High blood pressure Sister Thyroid condition Social History Social History Housing: House Alcohol intake: current Alcohol intake frequency: holidays/special occasions only Alcohol type: beer Patient Tobacco Use Status: Former Tobacco user Tobacco use type: Cigarette Smoked in Last 30 Days: No e-Cigarette/Vaping Use: Never Used Second Hand Smoke Exposure: No Use of substances other than those prescribed or required for medical reasons: No Advance Directives: No Advance Directives Information Provided: No service: No Current occupational status: unemployed Cognitive needs: No Hearing needs: No Vision needs: No Physical Exam 2 Vital Signs: Vital Signs: Last Vital Signs Temp 99.1 F 07/01/23 12:22 Pulse 85 07/01/23 12:22 Resp 18 07/01/23 12:22 BP 123/82 07/01/23 12:22 Pulse Ox 97 07/01/23 12:22 O2 Del Method Room Air 07/01/23 12:22 BMI result Body Mass Index 28.7 VITAL SIGNS: Reviewed. GENERAL: Well developed, well nourished, in no acute distress. HEAD: Normocephalic/atraumatic EYES: PERRLA, EOMI EARS: Ext canals without abnormality, TMs non-bulging and non-erythematous NOSE: Nares patent bilateral OROPHARYNX: no oral lesions noted, posterior pharynx clear and non-erythematous without noted tonsillar enlargement/erythema/exudates NECK: Supple, no adenopathy LUNGS: Normal breath sounds. No adventitious sounds or accessory muscle use. SpO2<97> CARDIOVASCULAR: Regular rate and rhythm without noted murmurs ABDOMEN: Soft, non-tender, non-distended with bowel sounds. MUSCULOSKELETAL: No tenderness, deformities, or effusions noted on gross inspection. EXTREMITIES: No cyanosis, clubbing or edema. SKIN: Inspection of the skin reveals no rashes NEUROLOGIC: Alert and oriented x 4. Strength and sensation to light touch were grossly intact x 4. Course Course Course Narrative: This is a rapid medical exam: Additional HPI, ROS, PE not included below will be deferred to primary provider. Patient is a 38-year-old male presenting to the ED with complaint of chest pressure for months. Quit smoking 3 months ago. Noted small amount of bloody sputum, recent epistaxis. States notes pressure more when walking dog. Plan: EKG, CXR, labs Medications Administered Discontinued Medications Generic Name Dose Route Start Last Admin Trade Name Bandarq PRN Reason Stop Dose Admin Al Hydroxide/Mg Hydroxide 30 ml 07/01/23 13:32 07/01/23 13:45 Magnesium Hydrox/Alum Hydrox 30 Ml Oral.Susp PO 07/01/23 13:33 30 ml ONCE ONE Administration Lidocaine HCl 10 ml 07/01/23 13:32 07/01/23 13:45 Lidocaine Hcl Viscous 2 % 15 Ml Solution MUCOUS MEM 07/01/23 13:33 10 ml ONCE ONE Administration Sucralfate 1 gm 07/01/23 13:32 07/01/23 13:45 Sucralfate Oral Suspension 1 Gm/10 Ml Oral.Susp PO 07/01/23 13:33 1 gm ONCE ONE Administration Medical Decision Making Medical Decision Making [facility] Narrative: 38-year-old male with history and clinical presentation, DDX: Doubt cardiopulmonary etiology and suspect acid reflux/GERD, no clinical suspicion for PE. PERC negative I reviewed all investigations and hematologic indices are negative for leukocytosis or left shift, there is no anemia or thrombocytopenia. Coagulation studies are within normal limits. Chemistry indices are grossly within normal limits with a stable total bilirubin, otherwise no CHRISTOPHER or electrolyte/liver enzyme derangements other than previously mentioned. I sensitivity troponin is undetectable without acute changes on EKG. Urinalysis is negative for UTI. My interpretation is patient is suffering from acid reflux/GERD and it does appear that he is currently taking 40 mg omeprazole at this time, I will recommend that he began using small amounts of Mylanta prior to meals and follow-up with his primary care doctor for discussion of possible testing for H pylori or referral for upper endoscopy. Differential Diagnosis Differential Diagnoses: The differential diagnosis associated with the presentation includes Please see the discussion above Admission/Observation Consideration of admission/observation: Escalation of care including admission/observation considered Please see the discussion above Lab Data [facility] Lab Attestation statement: I reviewed the patient's lab results. Please see the discussion above 07/01/23 12:31 07/01/23 12:31 Labs: Lab Results 07/01/23 07/01/23 Range/Units 12:31 12:56 WBC 6.4 (4.8-10.8) X10*3/uL RBC 5.78 (4.60-5.80) X10*6/uL Hgb 14.7 (14.0-18.0) g/dl Hct 45.2 (42.0-52.0) % MCV 78.2 L (80.0-98.0) fL MCH 25.4 L (27.0-33.0) pg MCHC 32.5 (31.0-36.0) g/dl RDW 15.4 (11.0-16.0) % Plt Count 280 (160-400) X10*3/uL MPV 9.8 (9.4-12.4) fL Immature Gran % (Auto) 0.5 H (0.0-0.4) % Neut % (Auto) 66.7 (45-73) % Lymph % (Auto) 22.0 (20-40) % Ballard % (Auto) 9.5 (2-11) % Eos % (Auto) 0.5 (0-4) % Baso % (Auto) 0.8 (0-2) % Lymph # (Auto) 1.4 (1.2-4.9) X10*3/uL Ballard # (Auto) 0.6 (0.1-1.2) X10*3/uL Eos # (Auto) 0.0 (0.0-0.4) X10*3/uL Baso # (Auto) 0.1 (0.0-0.2) X10*3/uL Abs Immat Gran (auto) 0.03 (0.00-0.03) X10*3/uL Absolute Neuts (auto) 4.3 (2.0-8.3) x10*3/uL Absolute Nucleated RBC 0.000 (0.0-0.012) X10*3/uL Nucleated RBC % (auto) 0.0 (0.0-0.2) /100WBC PT 12.0 (11.1-13.3) SEC INR 1.0 (0.9-1.1) Sodium 142 (135-145) mmol/L Potassium 4.1 (3.3-5.1) mmol/L Chloride 104 (96-108) mmol/L Carbon Dioxide 31 H (22-29) mmol/L Anion Gap 11 L (12-20) BUN 9 (9-16) mg/dL Creatinine 0.93 (0.5-1.4) mg/dL Estim Creat Clear Calc 132.0 Estimated GFR > 60 Random Glucose 104 (60-115) mg/dL Calcium 9.5 (8.4-10.2) mg/dL Total Bilirubin 1.2 H (0.0-1.0) mg/dL AST 18 (5-37) U/L ALT 31 (0-40) U/L Alkaline Phosphatase 84 (39-117) U/L Troponin I High Sens < 2.7 (<3.5-35.0) ng/L Total Protein 7.7 (6.5-8.0) g/dL Albumin 4.5 (3.5-5.0) g/dL Urine Color Yellow Urine Appearance Clear Urine pH 7.0 (5.0-9.0) Ur Specific Maple 1.015 (1.005-1.025) Urine Protein Negative (Neg-Trace) mg/dL Urine Glucose (UA) Negative (Negative) mg/dL Urine Ketones Negative (Negative) mg/dL Urine Blood Negative (Negative) Urine Nitrite Negative (Negative) Ur Leukocyte Esterase Negative (Negative) Independent Interpretation I performed an independent interpretation of an: EKG Interpretation: Normal sinus rhythm, HR-90, no STEMI, TN/QRS/QTC is within normal limits. External Record Review External record reviewed: Outpatient record, Prior outpatient labs and Prior outpatient radiology Critical Care Time Critical Care Time Critical Care Time: Yes Total Critical Care Time: 30 Attestation: I personally attest to this time spent taking care of the patient. Discharge Plan Discharge Clinical Impression: GERD (gastroesophageal reflux disease) Patient Disposition: Home, Self-Care Instructions: Diet for Stomach Ulcers and Gastritis (ED), Gastroesophageal Reflux Disease (ED) Additional Instructions: 1. Recommend using [id number] Mylanta prior to your meals as additional coverage for your acid reflux/GERD. 2. Please follow-up with your primary care doctor to discuss further testing such as H pylori testing and possible upper endoscopy. Please use caution when using medications such as ibuprofen/Motrin/Aleve/Excedrin or aspirin. Return to the ER for any worsening symptoms. Prescriptions: No Action ketoconazole 2 % shampoo 1 appl topical 3XW 30 Days Qty: 120 3RF Dandruff Shampoo (selenium) 1 % shampoo 5 ml topical 2XW 30 Days Qty: 207 1RF Rx Instructions: lather into wet hair; leave in place for approximately 3 mins ; rinse simethicone [Gas Relief 80 (simethicone)] 80 mg tablet,chewable 80 mg PO TID-QID PRN (Reason: abdominal distention) Qty: 30 3RF omeprazole 40 mg capsule,delayed release(DR/EC) 40 mg PO DAILY 90 Days Qty: 90 1RF docusate sodium 100 mg capsule 100 mg PO BID 30 Days Qty: 60 1RF hydroxyzine HCl 25 mg tablet 25 mg PO BEDTIME Qty: 30 0RF gabapentin 300 mg capsule 300 mg PO TID 30 Days Qty: 90 1RF ibuprofen 600 mg tablet 600 mg PO Q6H PRN (Reason: pain) Qty: 30 0RF cyclobenzaprine 5 mg tablet 5 mg PO TID PRN (Reason: muscle spasm) Qty: 14 0RF lidocaine [Lidoderm] 5 % adhesive patch,medicated 1 patch topical DAILY Qty: 30 0RF Rx Instructions: leave on most painful area for up to 12 hrs ibuprofen 600 mg tablet 600 mg PO Q8H PRN (Reason: pain) Qty: 30 0RF loratadine [Claritin] 10 mg tablet 10 mg PO DAILY Qty: 30 0RF escitalopram oxalate 10 mg tablet 10 mg PO DAILY 30 Days Qty: 30 0RF Citrucel 500 mg tablet 500 mg PO TID Qty: 90 5RF bisacodyl [Dulcolax (bisacodyl)] 10 mg suppository 10 mg TN DAILY PRN (Reason: constipation) Qty: 20 0RF polyethylene glycol 3350 [Miralax] 17 gram/dose powder 17 g PO DAILY Qty: 510 6RF hydrocortisone [Proctosol HC] 2.5 % cream with perineal applicator 1 appl TN BEDTIME PRN (Reason: hemorrhoids) Qty: 30 3RF senna 8.6 mg capsule 8.6 mg PO DAILY PRN (Reason: constipation) 30 Days Qty: 30 1RF menthol-zinc oxide [Calmoseptine] 0.44-20.6 % ointment 1 appl topical BID PRN (Reason: skin irritation) Qty: 113 1RF Referrals: Sujey Sanchez MD [Primary Care Provider] -
[2023-07-01 12:22] VITALS: BP 123/82; PULSE 85; RESP 18; TEMP 37.3; O2SAT 97
--- NOTE | 2023-07-01 12:27 | PC.NURSE ---
a&ox4, vss and up to date, nsr on the veneer marker. pt presents to the ED d/t nonradiating generalized c/p x 1 month. pt denies any other sx. no sob/wob noted. respirations even and unlabored. tech bedside obtaining labs at this time. partner bedside for support. call silva placed within reach.
[2023-07-01 12:36] LABS: MANUAL DIFF FLAG NO
[2023-07-01 12:37] LABS: Basophils Absolute Auto 0.1 X10*3/uL (0.0-0.2); Basophils Percent Auto 0.8 % (0-2); Eosinophils Percent Auto 0.5 % (0-4); Hematocrit 45.2 % (42.0-52.0); Hemoglobin 14.7 g/dl (14.0-18.0); Imm Gran Abs Auto 0.03 X10*3/uL (0.00-0.03); Imm Gran Pct Auto 0.5 % (0.0-0.4); Lymphocytes Absolute Auto 1.4 X10*3/uL (1.2-4.9); Mean Corpuscular HGB Conc 32.5 g/dl (31.0-36.0); Mean Corpuscular Hemoglobin 25.4 pg (27.0-33.0); Mean Corpuscular Volume 78.2 fL (80.0-98.0); Mean Platelet Volume 9.8 fL (9.4-12.4); Monocytes Absolute Auto 0.6 X10*3/uL (0.1-1.2); Monocytes Percent Auto 9.5 % (2-11); Neutrophils Absolute Auto 4.3 x10*3/uL (2.0-8.3); Neutrophils Percent Auto 66.7 % (45-73); Platelet Count 280 X10*3/uL (160-400); Red Blood Count 5.78 X10*6/uL (4.60-5.80); Red Cell Distribution Width 15.4 % (11.0-16.0); White Blood Count 6.4 X10*3/uL (4.8-10.8)
--- NOTE | 2023-07-01 12:51 | PC.NURSE ---
to xray at this time.
[2023-07-01 12:52] LABS: Alanine Aminotransferase 31 U/L (0-40); Albumin Level 4.5 g/dL (3.5-5.0); Alkaline Phosphatase 84 U/L (39-117); Anion Gap 11 (12-20); Aspartate Amino Transferase 18 U/L (5-37); Bilirubin Total 1.2 mg/dL (0.0-1.0); Blood Urea Nitrogen 9 mg/dL (9-16); Calcium 9.5 mg/dL (8.4-10.2); Carbon Dioxide 31 mmol/L (22-29); Chloride 104 mmol/L (96-108); Estimated Glomerular Filt Rate > 60; Glucose Random 104 mg/dL (60-115); Potassium 4.1 mmol/L (3.3-5.1); Sodium 142 mmol/L (135-145); Total Protein 7.7 g/dL (6.5-8.0)
[2023-07-01 13:00] LABS: Troponin-I High Sensitivity < 2.7 ng/L (<3.5-35.0)
[2023-07-01 13:06] LABS: Appearance Urine Clear; Color Urine Yellow; Glucose Urine UA Negative (Negative); Leukocyte Esterase Urine Negative (Negative); Nitrite Urine Negative (Negative); Specific Gravity - Urine 1.015 (1.005-1.025); Urine Blood Negative (Negative); Urine Ketones Negative (Negative); Urine Protein Negative (Neg-Trace)
[2023-07-01] MEDS: Magnesium Hydrox/Alum Hydrox 30 ML ORAL.SUSP PO (13:45)
[2023-07-01] MEDS: Lidocaine HCl Viscous 2 % 15 ML SOLUTION 10 ML MUCOUS MEM (13:45)
[2023-07-01] MEDS: Sucralfate Oral Suspension 1 GM/10 ML ORAL.SUSP PO (13:45)
--- NOTE | 2023-07-01 13:47 | PC.NURSE ---
medication administered per provider order.
== END 2023-07-01 14:25 | disposition home or self-care (01) ==
PROVIDERS: Registered Nurse Emergency; Emergency Provider Student in an Organized Health Care Education/Training Program; PCP Internal Medicine
DX: K21.9 Gastro-esophageal reflux disease without esophagitis (principal)
CPT/HCPCS: 36415; 71046; 80053; 81003; 84484; 85025; 85610; 93005; 99283; 99285

== ENCOUNTER → 2023-07-01 11:41 | Outpatient (BNV) | payer OTHER, SELFPAY | PROVIDERS: Emergency Provider Student in an Organized Health Care Education/Training Program; PCP Internal Medicine; Visit Provider Internal Medicine | DX: R07.9 Chest pain, unspecified (principal) | CPT/HCPCS: 93010 ==

== ENCOUNTER 2023-07-04 15:59 | Outpatient (AMB) | payer OTHER, SELFPAY ==
[2023-07-04 16:03] VITALS: BP 120/80; BMI 28.3
--- NOTE | 2023-07-04 16:03 | A.OFFPC_ITS ---
Vital Signs 07/04/23 16:03 Height 6 ft Weight 209 lb BMI 28.3 BP 120/80 Blood Pressure Location Lt brachial Position Sitting Intake Visit Reasons: 07/01/23 [facility]domen Bacteria Intake Note: Patient here for [facility] ED follow up bacteria Dump Operator Required: No Accompanied by: Self / Same As Patient Allergies No Known Allergies Allergy (Verified 07/04/23 16:15) Medication List - Last Reconciled 07/04/23 by Sujey Abreu MD bisacodyl (Dulcolax (bisacodyl)) 10 mg SD DAILY PRN cyclobenzaprine 5 mg PO TID PRN docusate sodium 100 mg PO BID 30 days escitalopram oxalate 10 mg PO DAILY 30 days gabapentin 300 mg PO TID 30 days hydrocortisone 2.5% (Proctosol HC) 1 appl SD BEDTIME PRN hydroxyzine HCl 25 mg PO BEDTIME ibuprofen 600 mg PO Q6H PRN ketoconazole 2% 1 appl topical 3XW 30 days lidocaine 5% (Lidoderm) 1 patch topical DAILY loratadine (Claritin) 10 mg PO DAILY menthol-zinc oxide 0.44-20.6 % (Calmoseptine) 1 appl topical BID PRN methylcellulose (laxative) (Citrucel) 500 mg PO TID omeprazole 40 mg PO DAILY 90 days polyethylene glycol 3350 (Miralax) 17 grams PO DAILY selenium sulfide 1% (Dandruff Shampoo (selenium sulfide)) 5 mL topical 2XW 30 days sennosides (senna) 8.6 mg PO DAILY PRN 30 days simethicone (Gas Relief 80 (simethicone)) 80 mg PO TID-QID PRN Tobacco use date assessed: 07/04/23 Dental Screening Dental Screen Date: 07/04/23 Did you have a dental visit in the last 12 months?: Yes Did you have a dental problem in the last 6 months where you did not have access to dental care?: No Was dental information given to patient?: Patient has dentist HPI HPI Comments History of Present Illness Details This is a 38-year-old male that comes accompanied by girlfriend for hospital discharge follow-up with discharge date 07/01/2023 due to epigastric pain that bothers him. This is associated with food and just restarted taking PPIs daily. Had a CT scan of abdomen and pelvis showing mass of sacrum. He had mixed papillary ependymoma of sacrum removing [address] Potter and a small piece was not removed due to the area that was therefore they gave radiation. Will have another MRI of the lumbar spine due to this matter. Will be referred to Gastroenterology. Also has constipation that has worsened after spinal surgery. Was recommended to use senna as needed. Has moderate recurrent major depression that has improved with escitalopram. He is accompanied by girlfriend today. [facility] Medical History (Updated 07/04/23 @ 16:59 by Sujey Abreu MD) Moderate recurrent major depression Myxopapillary ependymoma of spinal cord Anxiety Blurry vision Perineural cyst Constipation Lumbar spondylosis with myelopathy Surgical History History of lumbar surgery History of ankle surgery Family History Mother Diabetes Stroke High blood pressure Sister Thyroid condition Social History Housing: House Alcohol intake: current Alcohol intake frequency: holidays/special occasions only Alcohol type: beer Patient Tobacco Use Status: Former Tobacco user Tobacco use type: Cigarette e-Cigarette/Vaping Use: Never Used Second Hand Smoke Exposure: No service: No Current occupational status: unemployed Cognitive needs: No Hearing needs: No Vision needs: Yes Questionnaire PHQ-9 Over the last 2 weeks, how often have you been bothered by any of the following problems? 1. Little interest or pleasure in doing things: not at all 2. Feeling down, depressed, or hopeless: several days 3. Trouble falling or staying asleep, or sleeping too much: nearly every day 4. Feeling tired or having little energy: several days 5. Poor appetite or overeating: not at all 6. Feeling bad about yourself - or that you are a failure or have let yourself or your family down: not at all 7. Trouble concentrating on things, such as reading the newspaper or watching television: not at all 8. Moving or speaking so slowly that other people could have noticed. Or the opposite - being so fidgety or restless that you have been moving around a lot m ore than usual: not at all 9. Thoughts that you would be better off or of hurting yourself in some way: not at all Total score: 5 Depression Screening Interpretation: Positive Depression Screening Follow-up: Existing condition and In treatment Depression Screening Done: Yes 72858 - PHQ-9 Billing: Yes Source: Developed by Drs. John Dunham, Lilian Pride, Farooq Melissa and colleagues, with an educational toya from [employer]. Thrive Questionnaire Date Thrive assessed: 07/04/23 I am a: Patient What is your living situation today?: I have a steady place to live Within the past 12 months, did the food you bought not last and you didn't have the money to get more?: Never true Within the past 12 months, did you worry whether your food would run out before you got money to buy more?: Never true Do you have trouble paying for medicines?: No Do you have trouble getting transportation to medical appointments?: No Do you have trouble paying your heating and electricity bill?: No Do you have trouble taking care of your child, family member or friend?: No Do you have trouble with day-to-day activities such as bathing, preparing meals, shopping, managing finances, etc.?: No Are you currently unemployed and looking for a job?: No Are you interested in more education?: No Please select the resources that you would like help with: None Currently or been in a relationship where the following occur: no concerns reported THRIVE Score: 0 AUDIT C Alcohol Use Questionnaire (AUDIT-C) 1. How often do you have a drink containing alcohol?: Never Total Score: 0 CARMENZA-7 AMB Questionnaire CARMENZA-7 Date CARMENZA - 7 assessed: 07/04/23 Feeling nervous, anxious, or on edge: 3 = Nearly every day Not being able to stop or control worryin = Not at all Worrying too much about different things: 1 = Several days Trouble relaxin = Several days Being so restless that it is hard to sit still: 1 = Several days Becoming easily annoyed or irritable: 1 = Several days Feeling afraid as if something awful might happen: 1 = Several days Total CARMENZA-7 score (0-4 normal; 5-9 mild; 10-14 moderate; 15-21 severe): 8 Source: Developed by Drs. Jonh Dunham, Lilian Pride, Farooq Melissa and colleagues, with an educational toya from [employer]. CARMENZA-7 Assessment Billing CARMENZA-7 Assessment Tool: CARMENZA-7 Assessment 88263 Review of Systems Const All systems reviewed & are unremarkable except as noted in HPI and below Eyes Reports no additional complaints, Denies change in vision and Denies other visual disturbances Card Denies chest pain at rest, Denies chest pain with activity, Denies edema, Denies irregular heart rhythm, Denies claudication, Denies dyspnea, Denies dyspnea on exertion, Denies orthopnea, Denies paroxysmal nocturnal dyspnea and Denies slow heart rate Resp Denies cough, Denies dyspnea and Denies dyspnea on exertion GI Reports abdominal pain, Denies change in bowel habits, Reports constipation, Denies excessive flatus, Reports heartburn, Denies nausea and Denies vomiting Denies urinary hesitancy, Denies urinary incontinence and Denies urinary urgency Musc Denies abnormal gait, Denies atrophy, Denies deformity and Denies limited range of motion Skin/Breast Denies bleeding lesions, Denies changing lesions and Denies rash Neuro Denies abnormal gait, Denies behavioral changes and Denies lack of coordination Psych Denies behavioral changes Physical exam (Primary Care) Vital Signs: Last Vital Signs BP 120/80 07/04/23 16:03 BMI result Body Mass Index 28.3 Tobacco/Smoking Status: Tobacco use Status Tobacco use date assessed 07/04/23 07/04/23 16:09 Patient Tobacco Use Status Former Tobacco user 07/04/23 16:09 Tobacco use type Cigarette 07/04/23 16:09 e-Cigarette/Vaping Use Never Used 07/04/23 16:09 PHQ-9: PHQ-9 Score PHQ-9: Total score 5 07/04/23 16:18 Depression Screening Interpretation: Positive Depression Screening Follow-up: Existing condition and In treatment Thrive Assessment: Date of Thrive Assessment Date Thrive assessed 07/04/23 07/04/23 16:09 Currently or been in a relationship where the following occur: no concerns reported Eyes General: appearance normal, both eyes and all related structures Eyelids: Yes eyelids normal Conjunctivae: conjunctivae normal Neck Neck: Yes normal visual inspection and Yes supple Resp Effort & Inspection: normal respiratory effort Auscultation: clear to auscultation bilaterally Cardio Jugular venous distension: no JVD Rate: regular rate Rhythm: regular rhythm Heart sounds: S1 normal heart sound present and S2 normal heart sound present GI Inspection: Yes normal to inspection Palpation (GI): Soft to palpation and Tenderness to palpation present (GI) in the epigastrum Auscultation: normal bowel sounds Extrem General: Yes full ROM Assessment and Plan Assessment & Plan (1) Hospital discharge follow-up: Code(s): Z09 - Encounter for follow-up examination after completed treatment for conditions other than malignant neoplasm Plan: Discharge date 07/01/2023 due to epigastric pain which has improved already with PPIs. Will be referred to Gastroenterology. (2) Acid reflux: Comment: Somewhat improved PPI-continue PPI avoid culprits Barium swallow further evaluation-GI history unclear EGD with Field-pending Code(s): K21.9 - Gastro-esophageal reflux disease without esophagitis Plan: Continue PPIs. Upper GI series ordered. (3) Moderate recurrent major depression: Code(s): F33.1 - Major depressive disorder, recurrent, moderate Plan: Continue escitalopram. (4) Constipation: Code(s): K59.00 - Constipation, unspecified Qualifiers: Constipation type: other constipation type Qualified Code(s): K59.09 - Other constipation Plan: Continue senna as needed. (5) Myxopapillary ependymoma of spinal cord: Comment: Removed and receiving radiation Code(s): D43.4 - Neoplasm of uncertain behavior of spinal cord Plan: MRI ordered. Orders: Orders MR lumbar spine wo con Today M53.3 - Sacrococcygeal disorders, not elsewhere classified [place] upper GI series Today K21.9 - Gastro-esophageal reflux disease without esophagitis Referrals Gastroenterology Referral K21.9 - Gastro-esophageal reflux disease without esophagitis, K64.9 - Unspecified hemorrhoids Medications: Refilled omeprazole 40 mg PO DAILY 90 days 90 caps 1RF Coding Level of Care Code TCM Mod MDM <= 7 Days Diagnoses Hospital discharge follow-up Z09 Acid reflux K21.9 Moderate recurrent major depression F33.1 Other constipation K59.09 Constipation type: other constipation type Myxopapillary ependymoma of spinal cord D43.4 Additional Codes CARMENZA-7 Assessment Billing - CARMENZA-7 Assessment Tool: CARMENZA-7 Assessment 39451 ([id number]) Time Spent (min) 25
== END 2023-07-04 16:27 | disposition home or self-care (01) ==
PROVIDERS: PCP Internal Medicine; Visit Provider Internal Medicine
DX: K21.9 Gastro-esophageal reflux disease without esophagitis (principal); F33.1 Major depressive disorder, recurrent, moderate; K59.09 Other constipation; D43.4 Neoplasm of uncertain behavior of spinal cord
CPT/HCPCS: 99214

== ENCOUNTER 2023-08-31 09:18 | Outpatient (REF) | payer OTHER, SELFPAY ==
--- NOTE | ~2023-08-31 | FL_ITS ---
EXAMINATION: XR FLUOROSCOPY UPPER GI WITH AIR CLINICAL INFORMATION: Reflux COMPARISON: None TECHNIQUE: Fluoroscopic air contrast upper GI examination was performed utilizing standard techniques with thin and thick barium and effervescent granules. Numerous spot images were obtained. FINDINGS: Dual and single contrast images of the esophagus demonstrate normal caliber, contour, and mucosal pattern. No evidence of stricture, mass, or ulcerations identified. Esophageal peristalsis was normal. A moderate size hiatal hernia is present. Gastroesophageal reflux is seen up to the midesophagus. Dual contrast and single contrast images of the stomach demonstrated a normal contour. The gastric mucosal folds appear mildly thickened. Contrast freely passed into the gastric antrum and duodenal bulb without delay. Single and air-contrast images of the duodenal bulb demonstrate no abnormality. The duodenal folds appear thickened. No malrotation. The imaged proximal jejunum has a normal fold pattern and caliber. FLUOROSCOPY TIME: 2 minutes 34 seconds Number of Spot Images: 14 Number of Cine: 9 DOSE AREA PRODUCT: 2070 uGy-m2 (microgray-meter squared) FL/FL upper GI w air IMPRESSION: 1. Moderate size type I hiatal hernia is present 2. Moderate gastroesophageal reflux 3. Mildly thickened gastric mucosal folds that likely represent gastritis. 4. Thickened duodenal folds that may represent duodenitis/peptic disease. This procedure was performed by Zane Lazaro PA-C, and supervised by Dr. Parrish
== END 2023-08-31 09:19 | disposition home or self-care (01) ==
LOC: HO.XRAY 09:18
PROVIDERS: PCP Internal Medicine; Visit Provider Internal Medicine
DX: K21.9 Gastro-esophageal reflux disease without esophagitis (principal)
CPT/HCPCS: 74246

== ENCOUNTER → 2023-08-31 09:20 | Outpatient (BNV) | payer OTHER, SELFPAY | PROVIDERS: PCP Internal Medicine; Visit Provider Physician Assistant Surgical | DX: K21.9 Gastro-esophageal reflux disease without esophagitis (principal) | CPT/HCPCS: 74246 ==

== ENCOUNTER 2023-09-27 13:56 | Outpatient (AMB) | payer OTHER, SELFPAY ==
--- NOTE | 2023-09-27 14:07 | A.OFFVIS_ITS ---
Vital Signs 09/27/23 14:10 Height 6 ft Weight 213 lb BMI 28.9 BP 109/63 Blood Pressure Location Lt brachial Position Sitting Pulse 68 Intake Visit Reasons: hemorthoids Intake Note: Patient follow up for hemorrhoid Patient cc: abdominal pain/bloating, acid reflex with burning sensation, and also constipation with hemorrhoids. Compensation Director Required: No Accompanied by: Self / Same As Patient Allergies No Known Allergies Allergy (Verified 09/27/23 14:07) Medication List - Last Reconciled 09/27/23 by Kareen Pardo PA-C bisacodyl (Dulcolax (bisacodyl)) 10 mg RI DAILY PRN cyclobenzaprine 5 mg PO TID PRN docusate sodium 100 mg PO BID 30 days escitalopram oxalate 10 mg PO DAILY 30 days gabapentin 300 mg PO TID 30 days hydrocortisone 2.5% (Proctosol HC) 1 appl RI BEDTIME PRN hydroxyzine HCl 25 mg PO BEDTIME ibuprofen 600 mg PO Q6H PRN ketoconazole 2% 1 appl topical 3XW 30 days lidocaine 5% (Lidoderm) 1 patch topical DAILY loratadine (Claritin) 10 mg PO DAILY menthol-zinc oxide 0.44-20.6 % (Calmoseptine) 1 appl topical BID PRN methylcellulose (laxative) (Citrucel) 500 mg PO TID omeprazole 40 mg PO DAILY 90 days polyethylene glycol 3350 (Miralax) 17 grams PO DAILY selenium sulfide 1% (Dandruff Shampoo (selenium sulfide)) 5 mL topical 2XW 30 days sennosides (senna) 8.6 mg PO DAILY PRN 30 days simethicone (Gas Relief 80 (simethicone)) 80 mg PO TID-QID PRN HPI Comments Details: A 38 y/o male with chronic constipation- he was following a stool regimen- then added senna from a family member with good response- Appetite is good he has not had any issues-no breakthrough acid reflux He has no nausea, vomiting, hematemesis, hematochezia fever chills F/u with for hx mass-he was also seen by Oncology this has all been followed. He has no issues and followed he follows with his PCP as well [facility], [facility] 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 Anxiety Blurry vision Perineural cyst Constipation Lumbar spondylosis with myelopathy Surgical History History of lumbar surgery History of ankle surgery Family History Mother Diabetes Stroke High blood pressure Sister Thyroid condition Social History Housing: House Alcohol intake: current Alcohol intake frequency: holidays/special occasions only Alcohol type: beer Patient Tobacco Use Status: Former Tobacco user Tobacco use type: Cigarette e-Cigarette/Vaping Use: Never Used Second Hand Smoke Exposure: No service: No Current occupational status: unemployed Cognitive needs: No Hearing needs: No Vision needs: Yes Physical Exam Vital Signs: Last Vital Signs Pulse 68 09/27/23 14:10 BP 109/63 09/27/23 14:10 BMI result Body Mass Index 28.9 Const General: cooperative, healthy appearing, comfortable and no acute distress Orientation/consciousness: patient oriented x3 Limitations: no limitations Resp Effort & Inspection: normal respiratory effort and able to speak in complete sentences Neuro General: patient oriented x3 Extrem General: Yes full ROM Psych Appearance: grossly normal and well kempt Mental Status: mental status grossly normal Speech and movement: Normal speech and movement present and Clear speech present Affect: normal affect Thought process: Normal thought process present Insight: Good insight present (Psych) Judgement: Good judgement present (Psych) Assessment & Plan Assessment & Plan (1) Constipation: Code(s): K59.00 - Constipation, unspecified Category: Medical Qualifiers: Constipation type: other constipation type Qualified Code(s): K59.09 - Other constipation Plan: Continue consistent bowel regimen senna Plan Maintain high-fiber diet Consistent bowel regimen May add senna- sent to pharm Medications: Refilled sennosides (senna) 8.6 mg PO DAILY 30 days PRN 30 caps 1RF constipation docusate sodium 100 mg PO BID 30 days 60 caps 1RF K59.00 - Constipation, unspecified polyethylene glycol 3350 (Miralax) 17 grams PO DAILY 510 grams 6RF methylcellulose (laxative) (Citrucel) 500 mg PO TID 90 tabs 5RF bisacodyl (Dulcolax (bisacodyl)) 10 mg RI DAILY PRN 20 ea 0RF constipation Patient Instructions: Maintain high-fiber diet, literature given Consistent bowel regimen May add senna- sent to pharm We will see him back for progress if all is well managed he may follow-up with PCP Call with any questions or concerns
[2023-09-27 14:10] VITALS: BP 109/63; PULSE 68; BMI 28.9
== END 2023-09-27 14:37 | disposition home or self-care (01) ==
PROVIDERS: PCP Internal Medicine; Visit Provider Physician Assistant
DX: K59.09 Other constipation (principal)
CPT/HCPCS: 99213

== ENCOUNTER → 2023-09-27 13:56 | Outpatient (BNVA) | payer OTHER, SELFPAY | PROVIDERS: PCP Internal Medicine; Visit Provider Physician Assistant | DX: K59.00 Constipation, unspecified (principal) | CPT/HCPCS: 99212 ==

== ENCOUNTER 2023-10-30 14:47 | Outpatient (AMB) | payer OTHER, SELFPAY ==
[2023-10-30 14:48] VITALS: BP 120/82; BMI 28.6
--- NOTE | 2023-10-30 14:48 | A.OFFPC_ITS ---
Vital Signs 10/30/23 14:48 Height 6 ft Weight 211 lb BMI 28.6 BP 120/82 Blood Pressure Location Lt brachial Position Sitting Intake Visit Reasons: 4 month f/u Intake Note: Patient here for a 4 month follow up, c/o pain from left side neck/shoulder radiating down arm [address] Freight Required: No Accompanied by: Self / Same As Patient Allergies No Known Allergies Allergy (Verified 10/30/23 15:03) Medication List - Last Reconciled 10/30/23 by Sujey Abreu MD bisacodyl (Dulcolax (bisacodyl)) 10 mg AL DAILY PRN cyclobenzaprine 5 mg PO TID PRN docusate sodium 100 mg PO BID 90 days escitalopram oxalate 10 mg PO DAILY 30 days gabapentin 300 mg PO TID 30 days hydrocortisone 2.5% (Proctosol HC) 1 appl AL BEDTIME PRN hydroxyzine HCl 25 mg PO BEDTIME ibuprofen 600 mg PO Q6H PRN ketoconazole 2% 1 appl topical 3XW 30 days lidocaine 5% (Lidoderm) 1 patch topical DAILY loratadine (Claritin) 10 mg PO DAILY menthol-zinc oxide 0.44-20.6 % (Calmoseptine) 1 appl topical BID PRN methylcellulose (laxative) (Citrucel) 500 mg PO TID omeprazole 40 mg PO DAILY 90 days polyethylene glycol 3350 (Miralax) 17 grams PO DAILY selenium sulfide 1% (Dandruff Shampoo (selenium sulfide)) 5 mL topical 2XW 30 days sennosides (senna) 8.6 mg PO DAILY PRN 90 days simethicone (Gas Relief 80 (simethicone)) 80 mg PO TID-QID PRN Tobacco use date assessed: 07/04/23 Dental Screening Dental Screen Date: 10/30/23 Did you have a dental visit in the last 12 months?: No Did you have a dental problem in the last 6 months where you did not have access to dental care?: No Was dental information given to patient?: Patient has dentist HPI HPI Comments History of Present Illness Details This is a 38-year-old male with moderate major depression, acid reflux, and constipation that complains of neck pain radiating to the left arm associated with left arm numbness and weakness that started few weeks ago. He fell and hit his left scapula and since then started to have those symptoms. Will be referred to Ortho. Depression has been stable with escitalopram. Upper GI series shows significant GERD despite the use of PPIs and he will see Gastroenterology soon. Constipation stable with medications as needed. 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 Anxiety Blurry vision Perineural cyst Constipation Lumbar spondylosis with myelopathy Surgical History History of lumbar surgery History of ankle surgery Family History Mother Diabetes Stroke High blood pressure Sister Thyroid condition Social History Housing: House Alcohol intake: current Alcohol intake frequency: holidays/special occasions only Alcohol type: beer Patient Tobacco Use Status: Former Tobacco user Tobacco use type: Cigarette e-Cigarette/Vaping Use: Never Used Second Hand Smoke Exposure: No service: No Current occupational status: unemployed Cognitive needs: No Hearing needs: No Vision needs: Yes Questionnaire Thrive Questionnaire Date Thrive assessed: 07/04/23 CARMENZA-7 AMB Questionnaire CARMENZA-7 Date CARMENZA - 7 assessed: 07/04/23 Source: Developed by Drs. John Dunham, Lilian Pride, Farooq Melissa and colleagues, with an educational toya from [employer]. Review of Systems Const All systems reviewed & are unremarkable except as noted in HPI and below Eyes Reports no additional complaints, Denies change in vision and Denies other visual disturbances Card Denies chest pain at rest, Denies chest pain with activity, Denies edema, Denies irregular heart rhythm, Denies claudication, Denies dyspnea, Denies dyspnea on exertion, Denies orthopnea, Denies paroxysmal nocturnal dyspnea and Denies slow heart rate Resp Denies cough, Denies dyspnea and Denies dyspnea on exertion GI Denies abdominal pain, Denies change in bowel habits, Denies excessive flatus, Denies nausea and Denies vomiting Denies urinary hesitancy, Denies urinary incontinence and Denies urinary urgency Physical exam (Primary Care) Vital Signs: Last Vital Signs BP 120/82 10/30/23 14:48 BMI result Body Mass Index 28.6 Tobacco/Smoking Status: Tobacco use Status Tobacco use date assessed 07/04/23 10/30/23 14:56 Patient Tobacco Use Status Former Tobacco user 10/30/23 14:56 Tobacco use type Cigarette 10/30/23 14:56 e-Cigarette/Vaping Use Never Used 10/30/23 14:56 Thrive Assessment: Date of Thrive Assessment Date Thrive assessed 07/04/23 10/30/23 14:56 Resp Effort & Inspection: normal respiratory effort Auscultation: clear to auscultation bilaterally Cardio Jugular venous distension: no JVD Rate: regular rate Rhythm: regular rhythm Heart sounds: S1 normal heart sound present and S2 normal heart sound present Extrem General: Yes full ROM Assessment and Plan Assessment & Plan (1) Moderate recurrent major depression: Code(s): F33.1 - Major depressive disorder, recurrent, moderate Plan: Continue escitalopram. (2) Constipation: Code(s): K59.00 - Constipation, unspecified Qualifiers: Constipation type: other constipation type Qualified Code(s): K59.09 - Other constipation Plan: Continue senna as needed. (3) Acid reflux: Comment: Somewhat improved PPI-continue PPI avoid culprits Barium swallow further evaluation-GI history unclear EGD with Field-pending Code(s): K21.9 - Gastro-esophageal reflux disease without esophagitis Plan: Continue PPIs. Follow-up with GI. (4) Cervical radiculopathy: Code(s): M54.12 - Radiculopathy, cervical region Plan: Referred to Ortho. Orders: Referrals Orthopedics Referral M54.12 - Radiculopathy, cervical region Medications: Refilled cyclobenzaprine 5 mg PO TID PRN 14 tabs 0RF muscle spasm omeprazole 40 mg PO DAILY 90 days 90 caps 1RF ibuprofen 600 mg PO Q6H PRN 30 tabs 0RF pain loratadine (Claritin) 10 mg PO DAILY 30 tabs 0RF simethicone (Gas Relief 80 (simethicone)) 80 mg PO TID-QID PRN 30 tabs 3RF abdominal distention R14.0 - Abdominal distension (gaseous) Coding Level of Care Code Est Pt Level 4 (26558) Diagnoses Moderate recurrent major depression F33.1 Other constipation K59.09 Constipation type: other constipation type Acid reflux K21.9 Cervical radiculopathy M54.12 Time Spent (min) 23
== END 2023-10-30 15:16 | disposition home or self-care (01) ==
PROVIDERS: PCP Internal Medicine; Visit Provider Internal Medicine
DX: K59.09 Other constipation (principal); F33.1 Major depressive disorder, recurrent, moderate; K21.9 Gastro-esophageal reflux disease without esophagitis; M54.12 Radiculopathy, cervical region
CPT/HCPCS: 99214

== ENCOUNTER 2023-10-31 08:22 | Outpatient (REF) | payer OTHER, SELFPAY | END 2023-10-31 08:23 | disposition home or self-care (01) | LOC: HO.XRAY 08:22 | PROVIDERS: PCP Internal Medicine; Visit Provider Internal Medicine | DX: Z13.89 Encounter for screening for other disorder (principal) ==

== ENCOUNTER 2023-11-23 15:14 | Outpatient (REF) | payer OTHER, SELFPAY ==
--- NOTE | ~2023-11-23 | MR_ITS ---
EXAMINATION: MR PELVIS WITHOUT AND WITH CONTRAST CLINICAL INFORMATION: Lower back pain. Sacral mass. COMPARISON: Multiple priors, most recent CT abdomen/pelvis dated 05/14/2023 as well as a report from an outside pelvic MRI dated 11/11/2022. TECHNIQUE: Multisequence MR imaging of the pelvis was obtained before and after the IV administration of 10 mL Gadavist contrast on a high-field strength scanner. FINDINGS: Redemonstration of postsurgical change within the sacrum at the level of S2 and S3 consistent with tumor debulking. There is bony remodeling and expansion of the central canal, similar when compared to the prior examination measuring approximately 3.1 x 5.6 x 4.4 cm (AP x ML x CC). This appears predominantly cystic with heterogeneous peripheral postcontrast enhancement. There are diffusely enhancing cystic components. Overall, this appears similar when compared to the CT dated 05/14/2023. No new soft tissue mass or lytic or blastic osseous lesion to suggest disease progression. No additional abnormal marrow signal. No stress reaction, fracture, or femoral head avascular necrosis. Partially visualized degenerative disc disease with a small disc bulge at L5-S1 where there is bilateral facet arthropathy and mild bilateral neural femoral stenosis. The visualized muscles and tendons are intact without edema or enhancement to suggest acute injury. The visualized intrapelvic structures are grossly unremarkable. No new soft tissue mass or fluid collection. MR/MR pelvis wo/w con IMPRESSION: 1. Postsurgical change within the sacrum with expansion of the central canal, similar when compared to the prior examination. This appears predominantly cystic with heterogeneous peripheral enhancement and cystic components, similar when compared to the CT dated 05/14/2023. No new soft tissue mass or lytic or blastic osseous lesion to suggest disease progression. 2. Partially visualized degenerative disc disease at L5-S1 with bilateral facet arthropathy and mild bilateral neural femoral stenosis.
[2023-11-23] MEDS: gadobutroL 10 ML VIAL IVPUSH (16:33)
== END 2023-11-23 15:15 | disposition home or self-care (01) ==
LOC: HO.MRI 15:14
PROVIDERS: PCP Internal Medicine; Visit Provider Internal Medicine
DX: M53.3 Sacrococcygeal disorders, not elsewhere classified (principal)
CPT/HCPCS: 72197; A9585

== ENCOUNTER 2024-02-02 13:30 | Emergency (ER) | payer OTHER, SELFPAY ==
--- NOTE | ~2024-02-02 | CT_ITS ---
EXAMINATION: CT ABDOMEN AND PELVIS WITHOUT CONTRAST CLINICAL INFORMATION: Bilateral flank pain, rule out stones. COMPARISON: May 14, 2023 TECHNIQUE: Multidetector volumetric imaging was performed from the superior aspect of the liver through the pubic symphysis. Sagittal and coronal reformatted images were obtained on the technologist's workstation. This CT examination was performed using dose optimization techniques as appropriate, variously including the following: *Automated exposure control *Adjustment of mA and/or kV according to patient size (this includes techniques or standardized protocols for targeted exams where dose is matched to indication/reason for exam; i.e. extremities or head) *Use of iterative reconstruction technique DLP: 574 mGy-cm FINDINGS: LUNG BASES: The visualized lung bases are unremarkable. LIVER, GALLBLADDER, AND BILIARY TREE: The liver is normal in size, shape, and attenuation. No focal hepatic lesion or biliary ductal dilatation is present. The gallbladder is unremarkable with no evidence of radiopaque gallstones, gallbladder wall thickening, or obvious pericholecystic inflammatory changes. PANCREAS: Unremarkable. SPLEEN: Unremarkable. ADRENAL GLANDS: Unremarkable. KIDNEYS AND URETERS: The kidneys are normal in size, shape, and attenuation. No hydronephrosis, hydroureter, or calculi seen. No perinephric stranding. BLADDER: There is circumferential thickening of urinary bladder wall GASTROINTESTINAL TRACT: The small and large bowel are unremarkable. The appendix is unremarkable. ABDOMINAL WALL: No significant hernia is appreciated. LYMPH NODES: Normal. VASCULAR: Unremarkable. PELVIC VISCERA: Unremarkable. OSSEOUS STRUCTURES: There is ill-defined sacral expansile lesion evaluated further by MRI in September 2020 CT/CT abdomen pelvis wo IV con IMPRESSION: 1. Circumferential thickening of urinary bladder wall. Correlate with urinalysis. No evidence of nephrolithiasis or hydronephrosis. 2. There is ill-defined sacral expansile lesion evaluated further by MRI in September 2020. Fleischner guidelines were followed. Electronically signed by: Roro De Anda MD 02/02/2024 04:08 PM EDT
[2024-02-02 13:32] VITALS: BP 117/90; PULSE 79; RESP 16; TEMP 36.8; O2SAT 96; BMI 29.2
--- NOTE | 2024-02-02 13:36 | ED.GENADULT ---
HPI - General Adult General Chief complaint: General Medical Stated complaint: back pain int abd nausea dizzy Time Seen by Provider: 02/02/24 17:41 Source: patient and family Mode of arrival: ambulatory Limitations: no limitations History of Present Illness HPI narrative: Patient is a 39-year-old male who presents to the emergency department for evaluation. He reports over the past 4 days he has been experiencing symptoms including sporadic nausea lasting a few moments multiple times throughout the day without vomiting, diffuse abdominal ?discomfort? but not pain, diffuse lower back pain (which is chronic in nature), diarrhea described as 2 episodes of soft stools daily (with continued use of multiple stool softeners and laxatives with his underlying constipation), diffuse headache without associated vision changes, dizziness, lightheadedness (states he has not been wearing his glasses which she is supposed to wear), subjective fever 3 days ago. Denies chest pain, shortness of breath, URI symptoms, hematochezia, melena, dysuria, urinary frequency/urgency/hesitancy, numbness or tingling of the extremities. Denies any known sick contacts. Related Data Previous Rx's ?Medication ?Instructions ?Recorded ketoconazole 2 % shampoo 1 appl topical 3XW 30 days #120 mL 05/19/21 escitalopram oxalate 10 mg tablet 10 mg PO DAILY 30 days #30 tabs 02/09/22 selenium sulfide 1 % shampoo 5 ml topical 2XW 30 days #207 mL 04/23/22 (Dandruff Shampoo (selenium sulfide)) hydrocortisone 2.5 % topical cream 1 appl CO BEDTIME PRN hemorrhoids 06/07/22 with perineal applicator #30 grams (Proctosol HC) menthol 0.44 %-zinc oxide 20.6 % 1 appl topical BID PRN skin 10/12/22 topical ointment (Calmoseptine) irritation #113 grams hydroxyzine HCl 25 mg tablet 25 mg PO BEDTIME #30 tabs 04/11/23 lidocaine 5 % topical patch 1 patch topical DAILY #30 ea 05/14/23 (Lidoderm) gabapentin 300 mg capsule 300 mg PO TID 30 days #90 caps 05/17/23 bisacodyl 10 mg rectal suppository 10 mg CO DAILY PRN constipation 09/27/23 (Dulcolax (bisacodyl)) #20 ea methylcellulose (laxative) 500 mg 500 mg PO TID #90 tabs 09/27/23 tablet (Citrucel) polyethylene glycol 3350 17 17 g PO DAILY #510 grams 09/27/23 gram/dose oral powder (Miralax) docusate sodium 100 mg capsule 100 mg PO BID 90 days #180 caps 09/28/23 sennosides 8.6 mg capsule (senna) 8.6 mg PO DAILY PRN constipation 09/28/23 90 days #90 caps cyclobenzaprine 5 mg tablet 5 mg PO TID PRN muscle spasm #14 10/30/23 tabs ibuprofen 600 mg tablet 600 mg PO Q6H PRN pain #30 tabs 10/30/23 loratadine 10 mg tablet (Claritin) 10 mg PO DAILY #30 tabs 10/30/23 omeprazole 40 mg capsule,delayed 40 mg PO DAILY 90 days #90 caps 10/30/23 release simethicone 80 mg chewable tablet 80 mg PO TID-QID PRN abdominal 10/30/23 (Gas Relief 80 (simethicone)) distention #30 tabs Allergies Allergy/AdvReac Type Severity Reaction Status Date / Time No Known Allergies Allergy Verified 02/02/24 13:35 Review of Systems Review of Systems: Yes all other systems are reviewed and are negative PMFSH Past Medical History Attestation statement: The following information was validated with the patient. 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 Anxiety Blurry vision Perineural cyst Constipation Lumbar spondylosis with myelopathy Surgical History History of lumbar surgery History of ankle surgery Family History Family History Mother Diabetes Stroke High blood pressure Sister Thyroid condition Social History Social History Housing: House Alcohol intake: current Alcohol intake frequency: holidays/special occasions only Alcohol type: beer Patient Tobacco Use Status: Former Tobacco user Tobacco use type: Cigarette e-Cigarette/Vaping Use: Never Used Second Hand Smoke Exposure: No Advance Directives: No Advance Directives Information Provided: No Do you have a plan to hurt others: No Plan service: No Current occupational status: unemployed Cognitive needs: No Hearing needs: No Vision needs: Yes Physical Exam ED Vital Signs: Vital Signs - 24 hr 02/02/24 13:32 02/02/24 18:11 Temperature 98.2 F 98.2 F Pulse Rate 79 79 Respiratory Rate 16 16 Blood Pressure 117/90 H 117/90 H Pulse Oximetry 96 96 Oxygen Delivery Method Room Air Room Air BMI result Body Mass Index 29.2 Appearance: Alert.?Oriented to person, place and time. No acute distress.?Normal affect. Eyes: Pupils equal, round and reactive to light.? ENT: Pharynx normal.?? Neck: Normal inspection.? Neck supple.?? CVS: Heart sounds normal. Normal heart rate and rhythm.? Pulses normal.?? Respiratory: No respiratory distress.? Lung sounds clear to auscultation bilaterally?? Abdomen: Soft and non-tender. Normoactive bowel sounds. No pulsatile mass.?? Skin: Skin warm and dry.? Normal skin color.? Normal skin turgor.?? Extremities: No lower extremity edema.? No calf ttp? Neuro: Moves all extremities spontaneously. Sensation intact bilaterally. CN II-XII intact. No focal neuro deficits. Ambulates with normal steady gait. Course Course Course Narrative: This is a Rapid Medical Examination (RME) performed by Karla Wilson PA-C in triage. Full HPI, ROS, assessment and treatment plan per primary provider in the Main ED. 39 yo male here for eval of nausea, abdominal pain, bilateral back pain, diarrhea, fever, headache x4 days. no known sick contacts. denies dysuria, hematuria, penile discharge. Plan: labs, ua, ct scan Reevaluation(s) Reevaluation #1: CT reveals circumferential thickening of the urinary bladder wall, urinalysis without consistent evidence of an infection, no symptoms. CT also indicates ill-defined sacral lesion, patient underwent MRI in September of 2023 revealing postsurgical changes within the sacrum with expansion of the central canal predominantly cystic with heterogeneous peripheral enhancement, no evidence of new soft tissue mass or lytic or blastic osseous lesion to suggest disease progression. Abdominal examination is benign, he is tolerating oral intake without nausea or vomiting at the time of my evaluation. Has no midline lumbar spine tenderness, step-offs, deformities. He is overall well-appearing. Suspect symptoms likely secondary to viral syndrome. He was offered to receive Zofran for nausea he declines. We discussed holding his stool softeners/laxatives while experiencing diarrhea/loose stools and verbalizes understanding. Recommend outpatient follow-up with primary care provider. Discussed worrisome signs and symptoms that would warrant re-evaluation in the emergency department. All questions answered. Stable for discharge Medical Decision Making Medical Decision Making [facility] Narrative: Patient is a 39-year-old male who presents emergency department for evaluation of multiple complaints as per HPI. Overall he appears well, nontoxic, afebrile. He is without tachycardia tachypnea or hypoxia. He is speaking clear full sentences. His abdominal examination is benign; lower suspicion for acute intra-abdominal pathology, however he does report a history of having had a tumor removed from his spine approximately [address] Potter. He has no focal neurological deficits. No nuchal rigidity. Will obtain CBC to evaluate for leukocytosis/ anemia, CMP and lipase to evaluate for abnormal electrolytes /abnormal renal function/ abnormal hepatic/biliary function, viral panel, CT abdomen and pelvis, and Urinalysis. Differential Diagnosis Differential Diagnoses: The differential diagnosis associated with the presentation includes (Diverticulitis, nephrolithiasis, ureteral calculi, viral syndrome, medication side effect from chronic constipation, dehydration, electrolyte derangement) Admission/Observation Consideration of admission/observation: Escalation of care including admission/observation considered (See narrative above and course narrative for further detail) Lab Data [facility] Lab Attestation statement: I reviewed the patient's lab results. CBC is without leukocytosis, anemia, or thrombocytopenia. No electrolyte derangement. No CHRISTOPHER. LFTs indicating mildly elevated to bili 1.1 which is chronic in nature, mildly elevated ALT at 42 otherwise unremarkable LFTs and lipase within normal range. Urinalysis without evidence of infection or microscopic hematuria. Influenza/RSV/COVID-19- 02/02/24 13:48 02/02/24 13:48 Labs: Lab Results 02/02/24 Range/Units 13:48 WBC 7.1 (4.8-10.8) X10*3/uL RBC 5.67 (4.60-5.80) X10*6/uL Hgb 14.8 (14.0-18.0) g/dl Hct 44.5 (42.0-52.0) % MCV 78.5 L (80.0-98.0) fL MCH 26.1 L (27.0-33.0) pg MCHC 33.3 (31.0-36.0) g/dl RDW 15.9 (11.0-16.0) % Plt Count 282 (160-400) X10*3/uL MPV 9.5 (9.4-12.4) fL Immature Gran % (Auto) 0.4 (0.0-0.4) % Neut % (Auto) 64.1 (45-73) % Lymph % (Auto) 23.8 (20-40) % [place] % (Auto) 10.0 (2-11) % Eos % (Auto) 1.0 (0-4) % Baso % (Auto) 0.7 (0-2) % Lymph # (Auto) 1.7 (1.2-4.9) X10*3/uL [place] # (Auto) 0.7 (0.1-1.2) X10*3/uL Eos # (Auto) 0.1 (0.0-0.4) X10*3/uL Baso # (Auto) 0.1 (0.0-0.2) X10*3/uL Abs Immat Gran (auto) 0.03 (0.00-0.03) X10*3/uL Absolute Neuts (auto) 4.6 (2.0-8.3) x10*3/uL Absolute Nucleated RBC 0.000 (0.0-0.012) X10*3/uL Nucleated RBC % (auto) 0.0 (0.0-0.2) /100WBC Sodium 141 (135-145) mmol/L Potassium 3.8 (3.3-5.1) mmol/L Chloride 106 (96-108) mmol/L Carbon Dioxide 25 (22-29) mmol/L Anion Gap 14 (12-20) BUN 11 (9-16) mg/dL Creatinine 0.92 (0.5-1.4) mg/dL Estim Creat Clear Calc 133.0 Estimated GFR > 60 Random Glucose 91 (60-115) mg/dL Calcium 9.7 (8.4-10.2) mg/dL Magnesium 2.0 (1.6-2.6) mg/dL Total Bilirubin 1.1 H (0.0-1.0) mg/dL AST 23 (5-37) U/L ALT 42 H (0-40) U/L Alkaline Phosphatase 87 (39-117) U/L Total Protein 7.6 (6.5-8.0) g/dL Albumin 4.6 (3.5-5.0) g/dL Lipase 13 (8-78) U/L Urine Color Yellow Urine Appearance Clear Urine pH 6.0 (5.0-9.0) Ur Specific Ot[place] 1.015 (1.005-1.025) Urine Protein Negative (Neg-Trace) mg/dL Urine Glucose (UA) Negative (Negative) mg/dL Urine Ketones Negative (Negative) mg/dL Urine Blood Negative (Negative) Urine Nitrite Negative (Negative) Ur Leukocyte Esterase Negative (Negative) Urine Opiates Screen Not Detected (Not Detect) Ur Buprenorphine Scrn Not Detected (Not Detect) ng/mL Ur Oxycodone Screen Not Detected (Not Detect) ng/mL Urine Methadone Screen Not Detected (Not Detect) ng/mL Urine Fentanyl Screen Not Detected (Not Detect) Ur Barbiturates Screen Not Detected (Not Detect) Ur Phencyclidine Scrn Not Detected (Not Detect) Ur Amphetamines Screen Not Detected (Not Detect) U Benzodiazepines Scrn Not Detected (Not Detect) Urine Cocaine Screen Not Detected (Not Detect) U Marijuana (THC) Screen Not Detected (Not Detect) Influenza Type A (PCR) NEGATIVE (Negative) Influenza Type B (PCR) NEGATIVE (Negative) RSV RNA Qual (PCR) NEGATIVE (Negative) SARS-CoV-2 RNA (RT-PCR) NEGATIVE (Negative) Independent Interpretation I performed an independent interpretation of an: CT Scan (Diverticulitis, no obstructive calculi) Radiology Impression Discussion of test interpretation with radiology: I have reviewed the radiologist's reading. Radiologist Impression: CT/CT abdomen pelvis wo IV con IMPRESSION: 1. Circumferential thickening of urinary bladder wall. Correlate with urinalysis. No evidence of nephrolithiasis or hydronephrosis. 2. There is ill-defined sacral expansile lesion evaluated further by MRI in September 2020. Independent Historian Clinical information obtained from an independent historian. History obtained from or confirmed by: Spouse External Record Review External record reviewed: Outpatient record Prescription Management I considered prescription management with: Pain Medication (Acetaminophen/ibuprofen) and Other (Offered ondansetron for nausea he declines) Discharge Plan Discharge Clinical Impression: Acute viral syndrome Patient Disposition: Home, Self-Care Instructions: Viral Syndrome (ED) Additional Instructions: Be sure to stay well hydrated and drink plenty of fluids. As discussed, if you are experiencing diarrhea/loose or than normal stools I would refrain from using your stool softeners that day as this may worsen the symptoms. Avoid using any antidiarrheal medications as this may worsen your chronic constipation. Introduce a bland diet including crackers, bananas, rice, soup, toast, and boiled vegetables. This may progress to plain baked or boiled chicken or turkey. Avoid dairy products or foods high in fat or grease. You can take ibuprofen 200 mg, 3 tablets (600mg) every 6-8 hours as needed for pain, in addition to Tylenol 500 mg, 2 tablets (1,000mg) every 4-6 hours as needed for pain, but not to exceed 3 doses daily (3,000mg).? Follow-up with your primary care doctor. You may return to the emergency department any new or worsening symptoms or concerns Prescriptions: No Action ketoconazole 2 % shampoo 1 appl topical 3XW 30 Days Qty: 120 3RF Dandruff Shampoo (selenium) 1 % shampoo 5 ml topical 2XW 30 Days Qty: 207 1RF Rx Instructions: lather into wet hair; leave in place for approximately 3 mins ; rinse hydroxyzine HCl 25 mg tablet 25 mg PO BEDTIME Qty: 30 0RF gabapentin 300 mg capsule 300 mg PO TID 30 Days Qty: 90 1RF docusate sodium 100 mg capsule 100 mg PO BID 90 Days Qty: 180 1RF senna 8.6 mg capsule 8.6 mg PO DAILY PRN (Reason: constipation) 90 Days Qty: 90 1RF lidocaine [Lidoderm] 5 % adhesive patch,medicated 1 patch topical DAILY Qty: 30 0RF Rx Instructions: leave on most painful area for up to 12 hrs ibuprofen 600 mg tablet 600 mg PO Q6H PRN (Reason: pain) Qty: 30 0RF cyclobenzaprine 5 mg tablet 5 mg PO TID PRN (Reason: muscle spasm) Qty: 14 0RF loratadine [Claritin] 10 mg tablet 10 mg PO DAILY Qty: 30 0RF omeprazole 40 mg capsule,delayed release(DR/EC) 40 mg PO DAILY 90 Days Qty: 90 1RF simethicone [Gas Relief 80 (simethicone)] 80 mg tablet,chewable 80 mg PO TID-QID PRN (Reason: abdominal distention) Qty: 30 3RF escitalopram oxalate 10 mg tablet 10 mg PO DAILY 30 Days Qty: 30 0RF hydrocortisone [Proctosol HC] 2.5 % cream with perineal applicator 1 appl CO BEDTIME PRN (Reason: hemorrhoids) Qty: 30 3RF menthol-zinc oxide [Calmoseptine] 0.44-20.6 % ointment 1 appl topical BID PRN (Reason: skin irritation) Qty: 113 1RF polyethylene glycol 3350 [Miralax] 17 gram/dose powder 17 g PO DAILY Qty: 510 6RF Citrucel 500 mg tablet 500 mg PO TID Qty: 90 5RF bisacodyl [Dulcolax (bisacodyl)] 10 mg suppository 10 mg CO DAILY PRN (Reason: constipation) Qty: 20 0RF Referrals: Sujey Sanchez MD [Primary Care Provider] - Stand Alone Forms: Work/School Release Interventions: ED Discharge Assessment Last Done: 02/02/24 18:11 Discharge Date/Time: 02/02/24 18:11 Print Language: Algerian
[2024-02-02 13:53] LABS: MANUAL DIFF FLAG NO
[2024-02-02 13:55] LABS: Basophils Absolute Auto 0.1 X10*3/uL (0.0-0.2); Basophils Percent Auto 0.7 % (0-2); Eosinophils Absolute Auto 0.1 X10*3/uL (0.0-0.4); Hematocrit 44.5 % (42.0-52.0); Hemoglobin 14.8 g/dl (14.0-18.0); Imm Gran Abs Auto 0.03 X10*3/uL (0.00-0.03); Imm Gran Pct Auto 0.4 % (0.0-0.4); Lymphocytes Absolute Auto 1.7 X10*3/uL (1.2-4.9); Lymphocytes Percent Auto 23.8 % (20-40); Mean Corpuscular HGB Conc 33.3 g/dl (31.0-36.0); Mean Corpuscular Hemoglobin 26.1 pg (27.0-33.0); Mean Corpuscular Volume 78.5 fL (80.0-98.0); Mean Platelet Volume 9.5 fL (9.4-12.4); Monocytes Absolute Auto 0.7 X10*3/uL (0.1-1.2); Neutrophils Absolute Auto 4.6 x10*3/uL (2.0-8.3); Neutrophils Percent Auto 64.1 % (45-73); Platelet Count 282 X10*3/uL (160-400); Red Blood Count 5.67 X10*6/uL (4.60-5.80); Red Cell Distribution Width 15.9 % (11.0-16.0); White Blood Count 7.1 X10*3/uL (4.8-10.8)
[2024-02-02 13:56] LABS: Appearance Urine Clear; Color Urine Yellow; Glucose Urine UA Negative (Negative); Leukocyte Esterase Urine Negative (Negative); Nitrite Urine Negative (Negative); Specific Gravity - Urine 1.015 (1.005-1.025); Urine Blood Negative (Negative); Urine Ketones Negative (Negative); Urine Protein Negative (Neg-Trace)
[2024-02-02 14:06] LABS: Amphetamine Screen Urine Not Detected (Not Detect); Barbiturates, Urine Not Detected (Not Detect); Benzodiazepines Screen Urine Not Detected (Not Detect); Buprenorphine Scr Not Detected (Not Detect); Cannabinoid Screen Urine Not Detected (Not Detect); Cocaine Screen Urine Not Detected (Not Detect); Fentanyl, urine Not Detected (Not Detect); Methadone Screen, Urine Not Detected (Not Detect); Opiate Screen Urine Not Detected (Not Detect); Oxycodone Screen Urine Not Detected (Not Detect); Phencyclidine Screen Urine Not Detected (Not Detect)
[2024-02-02 14:09] LABS: Alanine Aminotransferase 42 U/L (0-40); Albumin Level 4.6 g/dL (3.5-5.0); Alkaline Phosphatase 87 U/L (39-117); Anion Gap 14 (12-20); Aspartate Amino Transferase 23 U/L (5-37); Bilirubin Total 1.1 mg/dL (0.0-1.0); Blood Urea Nitrogen 11 mg/dL (9-16); Calcium 9.7 mg/dL (8.4-10.2); Carbon Dioxide 25 mmol/L (22-29); Chloride 106 mmol/L (96-108); Estimated Glomerular Filt Rate > 60; Glucose Random 91 mg/dL (60-115); Lipase 13 U/L (8-78); Potassium 3.8 mmol/L (3.3-5.1); Sodium 141 mmol/L (135-145); Total Protein 7.6 g/dL (6.5-8.0)
[2024-02-02 14:34] LABS: Influenza A PCR NEGATIVE (Negative); Influenza B PCR NEGATIVE (Negative); Resp Syncy Virus RNA Qual PCR NEGATIVE (Negative); SARS COV2 PCR INHOUSE NEGATIVE (Negative)
[2024-02-02 18:11] VITALS: BP 117/90; PULSE 79; RESP 16; TEMP 36.8; O2SAT 96
== END 2024-02-02 18:11 | disposition home or self-care (01) ==
PROVIDERS: Physician Assistant Medical; Emergency Provider Emergency Medicine Emergency Medical Services; PCP Internal Medicine
DX: B34.9 Viral infection, unspecified (principal); R10.9 Unspecified abdominal pain; R11.0 Nausea; Z03.818 Encounter for observation for suspected exposure to other biological agents ruled out; Z87.891 Personal history of nicotine dependence; Z79.899 Other long term (current) drug therapy
CPT/HCPCS: 0241U; 36415; 74176; 80053; 80307; 81003; 83690; 83735; 85025; 99282; 99284

== ENCOUNTER 2024-02-15 17:40 | Emergency (ER) | payer OTHER, SELFPAY ==
--- NOTE | ~2024-02-15 | CT_ITS ---
EXAMINATION: CT HEAD WITHOUT IV CONTRAST CLINICAL INFORMATION: headache x2 weeks COMPARISON: CT head 08/12/2019 TECHNIQUE: Contiguous axial imaging was performed from the skull base to vertex without intravenous contrast. Sagittal and coronal reformatted images were obtained. This CT examination was performed using dose optimization techniques as appropriate, variously including the following: * Automated exposure control * Adjustment of mA and/or kV according to patient size (this includes techniques or standardized protocols for targeted exams where dose is matched to indication/reason for exam; i.e. extremities or head) Use of iterative reconstruction technique DLP: 719 mGy-cm FINDINGS: There is no evidence of acute intracranial hemorrhage. No mass-effect or ventricular shift is noted. No acute, territorial loss of flanagan-white differentiation. The ventricles and sulci are appropriate in size and configuration for the patient's stated age. No depressed calvarial fracture. The visualized paranasal sinuses are well-aerated. The mastoid air cells are clear. CT/CT head/brain wo IV con IMPRESSION: No acute intracranial hemorrhage, mass effect, or midline shift. Electronically signed by: Alfonso Gupta MD 02/15/2024 08:11 PM EDT
[2024-02-15 17:55] VITALS: BP 118/86; PULSE 94; RESP 16; TEMP 36.9; O2SAT 98; BMI 28.5
--- NOTE | 2024-02-15 17:57 | ED_ITS ---
HPI - Headache General Chief Complaint: Headache Stated Complaint: migraine Time Seen by Provider: 02/15/24 19:13 Source: patient Mode of arrival: ambulatory Limitations: no limitations History of Present Illness ED Provider: Bethel Jose PA-C HPI Narrative: 39 yo male with history of migraines presents to the ER for evaluation of a migraine headache since [birth year] his birthday. He states it has been constant and it involves his entire head. it is throbbing in nature and feels like his typical migraine. he has been taking a medication for fever and pain with no improvement in the headache. no vision changes, nausea, vomiting, photophobia, weakness, numbness or tingling. no gait abnormalities. he was seen here 02/01 for a viral illness and states he forgot to mention the headache. no fevers. MD elicited complaint: migraine Pertinent past history: migraines Onset (ago): week(s) Onset description: gradually Location: generalized Severity: moderate Quality & Timing: throbbing Exacerbating factors: none Relieving factors: nothing Context: occurred at rest Related Data Previous Rx's ?Medication ?Instructions ?Recorded ketoconazole 2 % shampoo 1 appl topical 3XW 30 days #120 mL 05/19/21 escitalopram oxalate 10 mg tablet 10 mg PO DAILY 30 days #30 tabs 02/09/22 selenium sulfide 1 % shampoo 5 ml topical 2XW 30 days #207 mL 04/23/22 (Dandruff Shampoo (selenium sulfide)) hydrocortisone 2.5 % topical cream 1 appl LA BEDTIME PRN hemorrhoids 06/07/22 with perineal applicator #30 grams (Proctosol HC) menthol 0.44 %-zinc oxide 20.6 % 1 appl topical BID PRN skin 10/12/22 topical ointment (Calmoseptine) irritation #113 grams hydroxyzine HCl 25 mg tablet 25 mg PO BEDTIME #30 tabs 04/11/23 lidocaine 5 % topical patch 1 patch topical DAILY #30 ea 05/14/23 (Lidoderm) gabapentin 300 mg capsule 300 mg PO TID 30 days #90 caps 05/17/23 bisacodyl 10 mg rectal suppository 10 mg LA DAILY PRN constipation 09/27/23 (Dulcolax (bisacodyl)) #20 ea methylcellulose (laxative) 500 mg 500 mg PO TID #90 tabs 04/17/24 tablet (Citrucel) polyethylene glycol 3350 17 17 g PO DAILY #510 grams 09/27/23 gram/dose oral powder (Miralax) docusate sodium 100 mg capsule 100 mg PO BID 90 days #180 caps 09/28/23 sennosides 8.6 mg capsule (senna) 8.6 mg PO DAILY PRN constipation 09/28/23 90 days #90 caps cyclobenzaprine 5 mg tablet 5 mg PO TID PRN muscle spasm #14 10/30/23 tabs ibuprofen 600 mg tablet 600 mg PO Q6H PRN pain #30 tabs 10/30/23 loratadine 10 mg tablet (Claritin) 10 mg PO DAILY #30 tabs 10/30/23 omeprazole 40 mg capsule,delayed 40 mg PO DAILY 90 days #90 caps 10/30/23 release simethicone 80 mg chewable tablet 80 mg PO TID-QID PRN abdominal 10/30/23 (Gas Relief 80 (simethicone)) distention #30 tabs vhismpuant-cmfsurlmoekfj-ekfynyvk 1 tab PO Q6H PRN headache #10 tabs 02/15/24 50 mg-325 mg-40 mg tablet Allergies Allergy/AdvReac Type Severity Reaction Status Date / Time No Known Allergies Allergy Verified 02/15/24 17:57 Review of Systems Review of Systems: Yes all other systems are reviewed and are negative [facility] Past Medical History 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 Anxiety Blurry vision Perineural cyst Constipation Lumbar spondylosis with myelopathy Surgical History History of lumbar surgery History of ankle surgery Family History Family History Mother Diabetes Stroke High blood pressure Sister Thyroid condition Social History Social History Housing: House Alcohol intake: current Alcohol intake frequency: holidays/special occasions only Alcohol type: beer Patient Tobacco Use Status: Former Tobacco user Tobacco use type: Cigarette e-Cigarette/Vaping Use: Never Used Second Hand Smoke Exposure: No Advance Directives: No Advance Directives Information Provided: No Do you have a plan to hurt others: No Plan service: No Current occupational status: unemployed Cognitive needs: No Hearing needs: No Vision needs: Yes Physical Exam Vital Signs: Vital Signs: Last Vital Signs Temp 97.4 F 02/15/24 20:07 Pulse 79 02/15/24 20:07 Resp 16 02/15/24 20:07 BP 121/81 02/15/24 20:07 Pulse Ox 97 02/15/24 20:07 O2 Del Method Room Air 02/15/24 20:07 BMI result Body Mass Index 28.5 Appearance: Alert. Oriented X3. No acute distress. Head: normocephalic, atraumatic. Eyes: Pupils equal, round and reactive to light. ENT: Pharynx normal. No tonsillar swelling or exudate. Neck: Normal inspection. Neck supple. CVS: Normal heart rate and rhythm. Pulses normal. Respiratory: No respiratory distress. Breath sounds normal. Abdomen: Soft and nontender. +BS x4 Skin: Skin warm and dry. Normal skin color. Normal skin turgor. No rashes. Extremities: No lower extremity edema. No joint swelling. Neuro/psych: Oriented X 3. No motor deficit. No sensory deficit. CN II-XII i ntact. Normal speech and cognition. Course Course Course Narrative: This is a Rapid Medical Examination (RME) performed by Bethel Jose PA-C in triage. Full HPI, ROS, assessment and treatment plan per primary provider in the Main ED. 39 yo male with history of migraines presents to the ER for a migraines headache since 01/29. he reports the headache has been constant since then. no relief with his migraine medication that he takes but cannot remember the name of. no weakness, numbness, tingling, vision changes. Plan: treat headache and reassess Medications Administered Discontinued Medications Generic Name Dose Route Start Last Admin Trade Name Bandarq PRN Reason Stop Dose Admin Acetaminophen/Butalbital/Caffeine 1 tab 02/15/24 19:14 02/15/24 19:47 Butalb/Acetamin/Caff 50/325/40 Tablet PO 02/15/24 19:15 1 tab ONCE ONE Administration Ketorolac Tromethamine 30 mg 02/15/24 19:14 02/15/24 19:48 Ketorolac Tromethamine 30 Mg/Ml Vial IM 02/15/24 19:15 30 mg ONCE ONE Administration Medical Decision Making Medical Decision Making [facility] Narrative: 39 yo male with history of migraines presents to the ER for evaluation of migraine headache for the last 2+ weeks. Neurologically intact. Headache similar to prior migraines but it usually does not last this long. CT scan done which was normal toradol and fiorcet given with some improvement in his pain stable for d/c home with outpatient follow up with his PCP Differential Diagnosis Differential Diagnoses: The differential diagnosis associated with the presentation includes migraine headache, tension headache, cluster headache, doubt organic cause such as tumor or lesion Admission/Observation Consideration of admission/observation: Escalation of care including admission/observation considered Independent Interpretation I performed an independent interpretation of an: CT Scan Interpretation: no acute bleed or edema Radiology Impression Discussion of test interpretation with radiology: I have reviewed the radiologist's reading. Radiologist Impression: EXAMINATION: CT HEAD WITHOUT IV CONTRAST CLINICAL INFORMATION: headache x2 weeks COMPARISON: CT head 08/12/2019 TECHNIQUE: Contiguous axial imaging was performed from the skull base to vertex without intravenous contrast. Sagittal and coronal reformatted images were obtained. This CT examination was performed using dose optimization techniques as appropriate, variously including the following: * Automated exposure control * Adjustment of mA and/or kV according to patient size (this includes techniques or standardized protocols for targeted exams where dose is matched to indication/reason for exam; i.e. extremities or head) Use of iterative reconstruction technique DLP: 719 mGy-cm FINDINGS: There is no evidence of acute intracranial hemorrhage. No mass-effect or ventricular shift is noted. No acute, territorial loss of flanagan-white differentiation. The ventricles and sulci are appropriate in size and configuration for the patient's stated age. No depressed calvarial fracture. The visualized paranasal sinuses are well-aerated. The mastoid air cells are clear. CT/CT head/brain wo IV con IMPRESSION: No acute intracranial hemorrhage, mass effect, or midline shift. External Record Review External record reviewed: Outpatient record and Prior outpatient labs Prescription Management I considered prescription management with: Pain Medication Chronic Conditions Patient?s care impacted by: Other (migraines) Critical Care Time Critical Care Time Critical Care Time: No Discharge Plan Discharge Clinical Impression: Migraine Patient Disposition: Home, Self-Care Instructions: Migraine Headache (ED) Additional Instructions: your CT scan today was normal take the prescribed medication as needed for headache rest and drink plenty of fluids avoid screen time follow up with your doctor If you develop new or worsening symptoms call 911 or come back to the ER for further evaluation. Prescriptions: New csgttwuxeb-spjstgqxhgpaz-rmsa 50-325-40 mg tablet 1 tab PO Q6H PRN (Reason: headache) Qty: 10 0RF No Action ketoconazole 2 % shampoo 1 appl topical 3XW 30 Days Qty: 120 3RF Dandruff Shampoo (selenium) 1 % shampoo 5 ml topical 2XW 30 Days Qty: 207 1RF Rx Instructions: lather into wet hair; leave in place for approximately 3 mins ; rinse hydroxyzine HCl 25 mg tablet 25 mg PO BEDTIME Qty: 30 0RF gabapentin 300 mg capsule 300 mg PO TID 30 Days Qty: 90 1RF docusate sodium 100 mg capsule 100 mg PO BID 90 Days Qty: 180 1RF senna 8.6 mg capsule 8.6 mg PO DAILY PRN (Reason: constipation) 90 Days Qty: 90 1RF lidocaine [Lidoderm] 5 % adhesive patch,medicated 1 patch topical DAILY Qty: 30 0RF Rx Instructions: leave on most painful area for up to 12 hrs ibuprofen 600 mg tablet 600 mg PO Q6H PRN (Reason: pain) Qty: 30 0RF cyclobenzaprine 5 mg tablet 5 mg PO TID PRN (Reason: muscle spasm) Qty: 14 0RF loratadine [Claritin] 10 mg tablet 10 mg PO DAILY Qty: 30 0RF omeprazole 40 mg capsule,delayed release(DR/EC) 40 mg PO DAILY 90 Days Qty: 90 1RF simethicone [Gas Relief 80 (simethicone)] 80 mg tablet,chewable 80 mg PO TID-QID PRN (Reason: abdominal distention) Qty: 30 3RF escitalopram oxalate 10 mg tablet 10 mg PO DAILY 30 Days Qty: 30 0RF hydrocortisone [Proctosol HC] 2.5 % cream with perineal applicator 1 appl LA BEDTIME PRN (Reason: hemorrhoids) Qty: 30 3RF menthol-zinc oxide [Calmoseptine] 0.44-20.6 % ointment 1 appl topical BID PRN (Reason: skin irritation) Qty: 113 1RF polyethylene glycol 3350 [Miralax] 17 gram/dose powder 17 g PO DAILY Qty: 510 6RF Citrucel 500 mg tablet 500 mg PO TID Qty: 90 5RF bisacodyl [Dulcolax (bisacodyl)] 10 mg suppository 10 mg LA DAILY PRN (Reason: constipation) Qty: 20 0RF Referrals: Sujey Sanchez MD [Primary Care Provider] - Print Language: [place]
[2024-02-15] MEDS: Butalb/Acetamin/Caff 50/325/40 TABLET 1 TAB PO (19:47)
[2024-02-15] MEDS: Ketorolac Tromethamine 30 MG/ML VIAL IM (19:48)
[2024-02-15 20:07] VITALS: BP 121/81; PULSE 79; RESP 16; TEMP 36.3; O2SAT 97
[2024-02-15 20:33] VITALS: BP 121/81; PULSE 79; RESP 16; TEMP 36.3; O2SAT 97
== END 2024-02-15 20:34 | disposition home or self-care (01) ==
PROVIDERS: Emergency Provider Emergency Medicine; PCP Internal Medicine
DX: G43.909 Migraine, unspecified, not intractable, without status migrainosus (principal)
CPT/HCPCS: 70450; 96372; 99283; 99284; J1885

== ENCOUNTER 2024-03-28 13:46 | Outpatient (AMB) | payer OTHER, SELFPAY ==
--- NOTE | 2024-03-28 13:47 | MHC.PC.OV ---
Vital Signs 03/28/24 13:48 Height 6 ft Weight 219 lb BMI 29.7 BP 122/78 Blood Pressure Location Lt brachial Position Sitting Intake Visit Reasons: annual Intake Note: Patient here for an annual physical exam [employer] Required: No Accompanied by: Significant Other Allergies No Known Allergies Allergy (Verified 03/28/24 14:00) Medication List - Last Reconciled 03/28/24 by Sujey Abreu MD bisacodyl (Dulcolax (bisacodyl)) 10 mg [place] DAILY PRN ydxcjqbkyt-yckfbqaewrpwk-hxmk 50-325-40 mg 1 tab PO Q6H PRN clonidine HCl 0.1 mg PO BEDTIME cyclobenzaprine 5 mg PO TID PRN docusate sodium 100 mg PO BID 90 days escitalopram oxalate 10 mg PO DAILY 30 days gabapentin 300 mg PO TID 30 days hydrocortisone 2.5% (Proctosol HC) 1 appl [place] BEDTIME PRN hydroxyzine HCl 25 mg PO BEDTIME ibuprofen 600 mg PO Q6H PRN ketoconazole 2% 1 appl topical 3XW 30 days lidocaine 5% (Lidoderm) 1 patch topical DAILY loratadine (Claritin) 10 mg PO DAILY menthol-zinc oxide 0.44-20.6 % (Calmoseptine) 1 appl topical BID PRN methylcellulose (laxative) (Citrucel) 500 mg PO TID omeprazole 40 mg PO DAILY 90 days polyethylene glycol 3350 (Miralax) 17 grams PO DAILY selenium sulfide 1% (Dandruff Shampoo (selenium sulfide)) 5 mL topical 2XW 30 days sennosides (senna) 8.6 mg PO DAILY PRN 90 days simethicone (Gas Relief 80 (simethicone)) 80 mg PO TID-QID PRN Tobacco use date assessed: 07/04/23 Dental Screening Dental Screen Date: 03/28/24 Did you have a dental visit in the last 12 months?: Yes Did you have a dental problem in the last 6 months where you did not have access to dental care?: No Was dental information given to patient?: Patient has dentist HPI HPI Comments History of Present Illness Details This is a 39-year-old male with moderate recurrent major depression that comes accompanied by girlfriend for his physical exam. Depression still present and is on medications and follow by Psychiatry. He complains of right knee pain that started recently. Also has chest pain in the left side of the chest that happens while lying down at rest. EKG will be ordered. [facility] Medical History (Updated 03/28/24 @ 15:34 by Sujey Abreu MD) Moderate recurrent major depression Myxopapillary ependymoma of spinal cord Anxiety Blurry vision Perineural cyst Constipation Lumbar spondylosis with myelopathy Surgical History History of lumbar surgery History of ankle surgery Family History Mother Diabetes Stroke High blood pressure Sister Thyroid condition Social History Housing: House Alcohol intake: current Alcohol intake frequency: holidays/special occasions only Alcohol type: beer Patient Tobacco Use Status: Former Tobacco user Tobacco use type: Cigarette e-Cigarette/Vaping Use: Never Used Second Hand Smoke Exposure: No service: No Current occupational status: unemployed Cognitive needs: No Hearing needs: No Vision needs: Yes Questionnaire PHQ-9 Over the last 2 weeks, how often have you been bothered by any of the following problems? 1. Little interest or pleasure in doing things: more than half the days 2. Feeling down, depressed, or hopeless: several days 3. Trouble falling or staying asleep, or sleeping too much: nearly every day 4. Feeling tired or having little energy: more than half the days 5. Poor appetite or overeating: more than half the days 6. Feeling bad about yourself - or that you are a failure or have let yourself or your family down: several days 7. Trouble concentrating on things, such as reading the newspaper or watching television: several days 8. Moving or speaking so slowly that other people could have noticed. Or the opposite - being so fidgety or restless that you have been moving around a lot more than usual: several days 9. Thoughts that you would be better off or of hurting yourself in some way: not at all Total score: 13 Depression Screening Interpretation: Positive Depression Screening Follow-up: Existing condition, In treatment, Community Mental Health Worker F/U and Follow-up Visit Requested Depression Screening Done: Yes 75948 - PHQ-9 Billing: Yes Source: Developed by Lilian Pacheco Kurt Kroenke and colleagues, with an educational toya from [employer]. Thrive Questionnaire Date Thrive assessed: 03/28/24 I am a: Patient What is your living situation today?: I have a steady place to live Within the past 12 months, did the food you bought not last and you didn't have the money to get more?: Never true Within the past 12 months, did you worry whether your food would run out before you got money to buy more?: Never true Do you have trouble paying for medicines?: No Do you have trouble getting transportation to medical appointments?: No Do you have trouble paying your heating and electricity bill?: No Do you have trouble taking care of your child, family member or friend?: No Do you have trouble with day-to-day activities such as bathing, preparing meals, shopping, managing finances, etc.?: Yes Are you currently unemployed and looking for a job?: Yes Are you interested in more education?: No Please select the resources that you would like help with: Care for elder or disabled Currently or been in a relationship where the following occur: No concerns reported THRIVE Score: 0 AUDIT C Alcohol Use Questionnaire (AUDIT-C) 1. How often do you have a drink containing alcohol?: Never Total Score: 0 Score Reviewed/Action Taken: No CARMENZA-7 AMB Questionnaire CARMENZA-7 Date CARMENZA - 7 assessed: 03/28/24 Feeling nervous, anxious, or on edge: 3 = Nearly every day Not being able to stop or control worryin = More than half the days Worrying too much about different things: 2 = More than half the days Trouble relaxin = More than half the days Being so restless that it is hard to sit still: 2 = More than half the days Becoming easily annoyed or irritable: 2 = More than half the days Feeling afraid as if something awful might happen: 0 = Not at all Total CARMENZA-7 score (0-4 normal; 5-9 mild; 10-14 moderate; 15-21 severe): 13 Source: Developed by Lilian Pacheco Kurt Kroenke and colleagues, with an educational toya from [employer]. CARMENZA-7 Assessment Billing CARMENZA-7 Assessment Tool: CARMENZA-7 Assessment 63123 Review of Systems Const All systems reviewed & are unremarkable except as noted in HPI and below Card Reports chest pain at rest, Denies chest pain with activity, Denies edema, Denies irregular heart rhythm, Denies claudication, Denies dyspnea, Denies dyspnea on exertion, Denies orthopnea, Denies paroxysmal nocturnal dyspnea and Denies slow heart rate Resp Denies cough, Denies dyspnea and Denies dyspnea on exertion GI Denies abdominal pain, Denies change in bowel habits, Denies excessive flatus, Denies nausea and Denies vomiting Musc Reports arthralgias Neuro Denies lack of coordination Psych Reports depression Physical exam (Primary Care) Vital Signs: Last Vital Signs BP 122/78 03/28/24 13:48 BMI result Body Mass Index 29.7 BMI Assessment/Plan discussion: High BMI High, discussed plan: lifestyle, weight reduction, dietary and physical activity Tobacco/Smoking Status: Tobacco use Status Tobacco use date assessed 07/04/23 03/28/24 13:55 Patient Tobacco Use Status Former Tobacco user 03/28/24 13:55 Tobacco use type Cigarette 03/28/24 13:55 e-Cigarette/Vaping Use Never Used 03/28/24 13:55 PHQ-9: PHQ-9 Score PHQ-9: Total score 13 03/28/24 15:15 Depression Screening Interpretation: Positive Depression Screening Follow-up: Existing condition, In treatment, Community Mental Health Worker F/U and Follow-up Visit Requested Thrive Assessment: Date of Thrive Assessment Date Thrive assessed 03/28/24 03/28/24 13:55 Currently or been in a relationship where the following occur: No concerns reported [facility] Head: Yes normal to inspection, Yes normocephalic and Yes atraumatic Ears: external ears normal Eyes General: appearance normal, both eyes and all related structures Eyelids: Yes eyelids normal Conjunctivae: conjunctivae normal Neck Neck: Yes normal visual inspection and Yes supple Resp Effort & Inspection: normal respiratory effort Auscultation: clear to auscultation bilaterally Cardio Jugular venous distension: no JVD Rate: regular rate Rhythm: regular rhythm Heart sounds: S1 normal heart sound present and S2 normal heart sound present GI Inspection: Yes normal to inspection Palpation (GI): Soft to palpation and nontender Auscultation: normal bowel sounds Skin General skin exam: no rashes or lesions noted Neuro General: no focal motor deficits Extrem General: Yes full ROM Psych Appearance: grossly normal Office Procedures Flu Questionnaire Does the patient have a severe egg allergy?: No Immunizations Fluarix Triv [id number] (PF) 45 mcg (15 mcg x 3)/0.5 mL IM syringe Performing Provider: Sujey Abreu MD [facility] [place] [facility] Documented (not given) by: CARRIE Mackey on 03/28/24 13:56 Reason Not Given: Patient Refused Coding Level of Care Code Est Pt Level 3 (83485) Est Pt Prev Care 18-39y(82707) Diagnoses Annual physical exam Z00.00 Moderate recurrent major depression F33.1 Precordial pain R07.2 Chest pain type: precordial pain Chronic pain of right knee M25.561; G89.29 Chronicity: chronic Additional Codes CARMENZA-7 Assessment Billing - CARMENZA-7 Assessment Tool: CARMENZA-7 Assessment 71132 ([id number]) Time Spent (min) 35 Assessment & Plan Assessment & Plan (1) Annual physical exam: Code(s): Z00.00 - Encounter for general adult medical examination without abnormal findings Category: Medical Plan: Repeat in a year. (2) Moderate recurrent major depression: Code(s): F33.1 - Major depressive disorder, recurrent, moderate Category: Medical Plan: Continue escitalopram. Follow-up with psychiatry. (3) Chest pain: Code(s): R07.9 - Chest pain, unspecified Category: Medical Qualifiers: Chest pain type: precordial pain Qualified Code(s): R07.2 - Precordial pain Plan: EKG ordered. (4) Right knee pain: Code(s): M25.561 - Pain in right knee Category: Medical Qualifiers: Chronicity: chronic Qualified Code(s): M25.561 - Pain in right knee; G89.29 - Other chronic pain Plan: X-ray ordered. Orders: Orders Influenza [id number] Immunization Today Z23 - Encounter for immunization ECG 12 lead EKG Today R07.9 - Chest pain, unspecified Comprehensive [place]. Panel Fast Today R07.9 - Chest pain, unspecified Lipid Panel Today E78.5 - Hyperlipidemia, unspecified XR knee RT 2V Today M25.561 - Pain in right knee Medications: Refilled ibuprofen 600 mg PO Q6H PRN 30 tabs 0RF pain ketoconazole 2% 1 appl topical 3XW 120 mL 3RF 30 days B35.0 - Tinea barbae and tinea capitis loratadine (Claritin) 10 mg PO DAILY 30 tabs 0RF menthol-zinc oxide 0.44-20.6 % (Calmoseptine) 1 appl topical BID PRN 113 grams 1RF skin irritation
[2024-03-28 13:48] VITALS: BP 122/78; BMI 29.7
== END 2024-03-28 14:13 | disposition home or self-care (01) ==
PROVIDERS: PCP Internal Medicine; Visit Provider Internal Medicine
DX: Z00.00 Encounter for general adult medical examination without abnormal findings (principal); F33.1 Major depressive disorder, recurrent, moderate; R07.2 Precordial pain; M25.561 Pain in right knee; G89.29 Other chronic pain

== ENCOUNTER → 2024-03-28 13:46 | Outpatient (BNVA) | payer OTHER, SELFPAY | PROVIDERS: PCP Internal Medicine; Visit Provider Internal Medicine | DX: Z00.01 Encounter for general adult medical examination with abnormal findings (principal); F33.1 Major depressive disorder, recurrent, moderate; R07.2 Precordial pain; G89.29 Other chronic pain; M25.561 Pain in right knee; Z28.21 Immunization not carried out because of patient refusal | CPT/HCPCS: 90471; 96127; 99212; 99395 ==

== ENCOUNTER → 2024-07-03 11:41 | Outpatient (BNVA) | payer OTHER, SELFPAY | PROVIDERS: PCP Internal Medicine; Visit Provider Internal Medicine ==

== ENCOUNTER 2024-07-12 13:52 | Outpatient (AMB) | payer OTHER, SELFPAY ==
--- OUTSIDE RECORDS SUMMARY | 2024-07-12 13:54 | XMS_ITS | Clinical Summary ---
Author Organization [facility] Address [address] [place] [address] Care Team Providers Care Cable Testers Helper Name Role Phone Sujey Abreu MD Primary Care Provider Surgical History Surgery Date Site/Laterality Comments ANKLE SURGERY Left PROCEDURE: HISTORICAL ANKLE SURGERY BACK SURGERY 01/21/2021 PROCEDURE: HISTORICAL BACK SURGERY; COMMENT: resection of S1-S3 spinal tumor Medical History Medical History Date Comments Anxiety DX:Anxiety Constipation DX:Constipation Depressive disorder DX:Depressiv e disorder Social History Tobacco Use Types Packs/Day Years Used Date Smoking Tobacco: Never Smokeless Tobacco: Never Sex and Gender Information Value Date Recorded Sex Assigned at Not on file Gender Identity Not on file Sexual Orientation Not on file Obstetrics History Last Filed Vital Signs Vital Sign Reading Time Taken Comments Blood Pressure - - Pulse - - Temperature - - Respiratory Rate - - Oxygen Saturation - - Inhaled Oxygen Concentration - - Weight 94.8 kg (209 lb 1.6 oz) 05/19/2023 1:12 P M EST Height 180.3 cm (5' 11 ) 05/19/2023 1:12 PM EST Body Mass Index 29.16 05/19/2023 1:12 PM EST Plan of Treatment Health Maintenance Due Date Last Done Comments DTaP,Tdap,and Td Vaccines (1 - Tdap) 2006 Hepatitis B Vaccines (1 of 3 - 19+ 3-dose series) 2006 Cholesterol Screening (Lipid Panel) 05/15/2022 Depression Screening 05/15/2022 HIV Screening 05/15/2022 Hepatitis C Screening 05/15/2022 Social Influencers of Health Screening 05/15/2022 COVID-19 Vaccine (1 - 2023-2 5 season) 2024 Influenza Vaccine (#1) 2024 05/19/2020 HIB Vaccines Aged Out No longer eligi ble based on patient's age to complete this topic HPV Vaccines Aged Out No longer eligi ble based on patient's age to complete this topic Hepatitis A Vaccines Aged Out No long er eligible based on patient's age to complete this topic IPV Vaccines Aged Out No longer eligi ble based on patient's age to complete this topic MMR Vaccines Aged Out No longer eligi ble based on patient's age to complete this topic Meningococcal ACWY Vaccine Aged Out N o longer eligible based on patient's age to complete this topic Pneumococcal Vaccine: Pediat rics (0 to 5 Years) and At-Risk Patients (6 to 64 Years) Aged Out No longer eligi ble based on patient's age to complete this topic RSV Immunization Patients Un jenny 20 months Aged Out No longer eligible b ased on patient's age to complete this topic Varicella Vaccines Aged Out No longer eligible based on patient's age to complete this topic Care Teams Cable Testers Helper Relationship Specialty Start Date End Date Sujey Abreu MD [address] [place] [address] , [address] [facility] D/B/A: [facility] ANTONY Carr PCP - General Internal Medicine 06/24/21
--- NOTE | 2024-07-12 14:22 | HO.SPINEOV ---
Vital Signs 07/12/24 14:23 Height 6 ft Weight 215 lb 8 oz BMI 29.2 Intake Visit Reasons: constipation & retention of urine due to numbness Intake Note: Mr. Pratt is here today c/o low back pain. Parking Meter Collector Required: No Allergies No Known Allergies Allergy (Verified 07/12/24 14:29) Physical Exam Vital Signs: BMI result Body Mass Index 29.2 Assessment & Plan Assessment & Plan (1) Myxopapillary ependymoma of spinal cord: Code(s): D43.4 - Neoplasm of uncertain behavior of spinal cord Category: Medical Plan Dear Dr Rasmussen, Thank you for referring Mr Pratt to our office today. He has 39-year-old gentleman who was diagnosed with a myxopapillary ependymoma in 2020. His original present symptoms at that time were left posterior thigh pain, he ultimately underwent an MRI showing obstruction of the spinal canal in the distal sacral segments, underwent subtotal resection by Dr. Bennett in 2020 with postoperative XRT. The patient has had issues with urination and bowel movements after surgery. He also has some degree of loss of sensation in the perineum and his penis. He initially noted the symptoms right after surgery, specifically when he was trying to urinate. He has found over time that if he sits down and exerts himself really hard he can urinate. He has similar issue with bowel movements. He was seen in your office and he has been put on a bowel regimen to help move things along into avoid excessive straining. He was sent to us today as a 2nd opinion about whether there was anything more that can be done for the tumor that was still seen on the imaging. As I understand it, he is also in line to see Urology about some kind of device that may help him urinate a little bit easier. PMH: He is otherwise healthy young gentleman, denies any other major medical problems. Social hx: He quit smoking Medications: Please see the Acturis list Allergies: None Physical exam: He is awake alert oriented no acute distress, gait is normal, distal lower extremity strength is normal. Imaging review: He is a pelvic MRI with and without gadolinium. There is imaging done from last year as well as the imaging during his original diagnosis in 2020 and this shows subtotal resection with some evidence of enhancement in the periphery and a T1 fat-sat postcontrast images. Central portion of the spinal canal appears to be decompressed. No new changes to suggest the tumor is growing. Impression: 39-year-old male diagnosed with myxopapillary ependymoma in 2020, underwent subtotal resection at [facility] with postoperative XRT who has had postoperative issues with urination and bowel movements. He appears to have a neurogenic bladder and neurogenic bowel. The patient is frustrated with loss of sensation as well as does affect his ability to have an orgasm. He has no problems with erections. Based on the imaging that I reviewed with Dr. Dean, it appears as though the central canal is decompressed and there are peripheral components of the tumor that remained but nothing that would suggest ongoing encroachment of the spinal canal and the central nerves. Unfortunately, it is well-known that the sacral nerves are very delicate and resection of tumor in this area can come with side effects of bowel and bladder dysfunction. The patient tells me that Dr. Bennett explained all this to him. We agree with her assessment that there is nothing to be done at this time and he can just continue to follow with serial MRIs. All the following reviewed with Dr. Dean who agrees with the plan as outlined above. Thank you for allowing us to care for your patient. The total time spent with this visit with this patient was 45 minutes reviewing history, physical exam, pelvic MRI imaging review, and implementation of treatment plan or further diagnostic testing Nicolás Dean MD,PhD [facility] Coding Level of Care Code New Pt Level 4 (29930) Diagnoses Myxopapillary ependymoma of spinal cord D43.4
[2024-07-12 14:23] VITALS: BMI 29.2
== END 2024-07-12 15:09 | disposition home or self-care (01) ==
PROVIDERS: PCP Internal Medicine; Referring Provider Internal Medicine; Visit Provider Physician Assistant
DX: D43.4 Neoplasm of uncertain behavior of spinal cord (principal)
CPT/HCPCS: 99204

== ENCOUNTER → 2024-07-12 13:52 | Outpatient (BNVA) | payer OTHER, SELFPAY | PROVIDERS: PCP Internal Medicine; Referring Provider Internal Medicine; Visit Provider Physician Assistant | DX: D43.4 Neoplasm of uncertain behavior of spinal cord (principal) | CPT/HCPCS: 99202 ==

== ENCOUNTER 2024-10-09 11:23 | Outpatient (AMB) | payer OTHER, SELFPAY ==
--- NOTE | 2024-10-09 11:27 | A.OFFVIS_ITS ---
Vital Signs 10/09/24 11:28 Height 6 ft Weight 218 lb 4.122 oz BMI 29.6 BP 114/73 Blood Pressure Location Lt brachial Position Sitting Pulse 79 Intake Visit Reasons: Follow up Intake Note: Brayden presents in the office as a follow up. CC: States he is not having any concerns at this time. Woodworking Machine Setter Required: No Allergies No Known Allergies Allergy (Verified 10/09/24 11:29) HPI Comments Details: 39 y.o M with PMH of 7.1 cm of myxopapillary ependymoma affecting cauda equina s1-s3 s/p resection and XRT in 2020 ([facility]), MARINA, who is booked for televisit for follow-up for constipation. [facility] [place]. Surgical hx as noted above. Pt has since then developed issues with constipation and urinary retention. Reports has decreased sensation/urge to urinate/defecate since his spine surgery. Symptoms even unable to pass flatulence, despite significant bloating and discomfort. Drinks an herbal tea to induce abd cramping to help pass BM. Has to strain significantly. Also takes fiber and senna. In addition, reports generalized feeling of numbness and tingling over his perineum. Does not report sexual dysfunction. Bladder issues as above. Reports has seen a urologist in the past but was unable to recall where and who he saw. 10/09/24: Seen in person today. Seen by spine surgeon - no intervention recommended for now. Serial MRIs for monitoring. Missed urology appt in August. Now appt is on 10/17 to discuss SNS. He does not remember if he took motegrity. Requests to be represcribed. Otherwise reports symptoms are unchanged but likely because interventions outlined at previous OV not implemented yet. 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 Anxiety Blurry vision Perineural cyst Lumbar spondylosis with myelopathy Surgical History History of lumbar surgery History of ankle surgery Family History Mother Diabetes Stroke High blood pressure Sister Thyroid condition Social History Housing: House Alcohol intake: current Alcohol intake frequency: holidays/special occasions only Alcohol type: beer Patient Tobacco Use Status: Former Tobacco user Tobacco use type: Cigarette e-Cigarette/Vaping Use: Never Used Second Hand Smoke Exposure: No service: No Current occupational status: unemployed Cognitive needs: No Hearing needs: No Vision needs: Yes Review of Systems Const All systems reviewed & are unremarkable except as noted in HPI and below Physical Exam Vital Signs: Last Vital Signs Pulse 79 10/09/24 11:28 BP 114/73 10/09/24 11:28 BMI result Body Mass Index 29.6 No apparent distress Nonicteric Abdomen soft, nondistended Alert and oriented x3, normal gait Assessment & Plan Assessment & Plan (1) Constipation due to neurogenic bowel: Code(s): K59.00 - Constipation, unspecified; K59.2 - Neurogenic bowel, not elsewhere classified Category: Medical Plan Based on his history and temporality with the surgery/radiation therapy, suspect neurogenic bowel and bladder injury. Will be seeing urology for discussion of SNS. Reminded to keep that appt. From GI standpoint, recommend timed evacuation with enema or suppositories sakina if no BM for 2 days. Will resend motegrity. Pt to call/send msg on portal if minimal effect in 1-2 weeks so we can increase motegrity dose. Plan: -Motegrity 1 mg p.o. once daily - preferred over linzess as it has a prokinetic MoA. -Patient to call us if no response within 1 week taking this, to increase dose to 2 mg once daily. -Cont miralax daily -Add fiber -Rectal evacuation with enema/suppositories if no BM for 2 days -Uro appt pending for evaluation of bladder and urinary reflex dysfunction and for ? SNS - may help with bowel/bladder both if pt is a candidate. Instructions also provided in writing so pt can share with his spouse. Follow up 3 months Medications: New bisacodyl (Fleet Bisacodyl) 10 mg (30 mL) MO DAILY 2,700 mL 0RF constipation 90 days Refilled prucalopride (Motegrity) 1 mg PO DAILY 30 tabs 0RF 30 days Patient Instructions: Take fiber 1 tsp every day mixed in a cup of water Take motegrity in the morning Use an enema if no BM for 2 days Take miralax daily in evening Please reach out to us through the portal in 1-2 weeks if minimal response to above regimen Coding Level of Care Code Est Pt Level 4 (41387) Diagnoses Constipation due to neurogenic bowel K59.00; K59.2
[2024-10-09 11:28] VITALS: BP 114/73; PULSE 79; BMI 29.6
--- OUTSIDE RECORDS SUMMARY | 2024-10-09 13:03 | XMS_ITS | Clinical Summary ---
Author Organization [facility] Address [address] [place] [address] Care Team Providers Care Commodity Supervisor Name Role Phone uSjey Sanchez MD Primary Care Provid er Medications No known medications Active Problems No known active problems Social History Tobacco Use Types Packs/Day Years Used Date Smoking Tobacco: Former Smokeless Tobacco: Never Alcohol Use Standard Drinks/Week Comments Yes 0 (1 standard drink = 0.6 oz pur e alcohol) occasional Sex and Gender Information Value Date Recorded Sex Assigned at Not on file Gender Identity Not on file Sexual Orientation Not on file Last Filed Vital Signs Vital Sign Reading Time Taken Comments Blood Pressure 131/84 03/17/2021 3:17 PM EDT Pulse 111 03/17/2021 3:17 PM EDT Temperature 36.6 ??C (97.8 ??F) 03/17/2021 3:17 PM ED T Respiratory Rate - - Oxygen Saturation 99% 03/17/2021 3:17 PM EDT Inhaled Oxygen Concentration - - Weight 86.6 kg (191 lb) 03/17/2021 3:17 PM EDT Height 182.9 cm (6') 03/17/2021 3:17 PM EDT Body Mass Index 25.9 03/17/2021 3:17 PM EDT Plan of Treatment Health Maintenance Due Date Last Done Comments Hepatitis B Vaccines (1 of 3 - 3-dose series) 1987 Hepatitis C Screening 1987 COVID-19 Vaccine (#1) 1987 Depression Screening 1999 Preventative Health Evaluation 2005 DTap / Tdap / Td (1 - Tdap) 2006 Influenza Vaccine (#1) 2024 Pneumococcal Vaccine Aged Out No long er eligible based on patient's age to complete this topic RSV Ped < 20 months Aged Out No longe r eligible based on patient's age to complete this topic Care Teams Commodity Supervisor Relationship Specialty Start Date End Date Sujey Sanchez MD [address] [place] [address] , [address] [facility] D[facility]B/A: [facility] [place] [address] PCP - General Internal Medicine 09/16/20
--- OUTSIDE RECORDS SUMMARY | 2024-10-09 13:03 | XMS_ITS | Clinical Summary ---
Author Organization [employer] [facility] Address [address] [place] [address] Care Team Providers Care Bonding Equipment Operator Name Role Phone Sujey Abreu MD Primary Care Provider [phone] Surgical History Surgery Date Site/Laterality Comments ANKLE [...] Recorded Sex Assigned at Not on file Legal Sex Male 2:16 AM EST Gender Identity Not on file Sexual Orientation [...] - 2023-2 5 season) 2024 Influenza Vaccine (Season Ended) 2025 05/19/20 HIB Vaccines Aged Out No longer eligi [...] patient's age to complete this topic Meningococcal B Vaccine Aged Out No l onger eligible based on patient's age to complete [...] age to complete this topic Care Teams Bonding Equipment Operator Relationship Specialty Start Date End Date Sujey Abreu MD [address] [place] [address] , [address] [place] [address] Physician Associ D/B/A: [facility] ANTONY Carr PCP - General Internal Medicine 06/24/21
== END 2024-10-09 11:49 | disposition home or self-care (01) ==
LOC: HO.HGI 11:24
PROVIDERS: PCP Internal Medicine; Visit Provider Internal Medicine
DX: K59.00 Constipation, unspecified (principal); K59.2 Neurogenic bowel, not elsewhere classified
CPT/HCPCS: 99214

== ENCOUNTER → 2024-10-09 11:23 | Outpatient (BNVA) | payer OTHER, SELFPAY | PROVIDERS: PCP Internal Medicine; Visit Provider Internal Medicine | DX: K59.00 Constipation, unspecified (principal); K59.2 Neurogenic bowel, not elsewhere classified; R33.9 Retention of urine, unspecified | CPT/HCPCS: 99212 ==

== ENCOUNTER 2024-10-17 12:49 | Outpatient (AMB) | payer OTHER, SELFPAY ==
--- NOTE | 2024-10-17 13:04 | A.OFFVIS_ITS ---
Intake Visit Reasons: urinary retention, candidate for stimulator? Intake Note: Patient is present for urinary retention,candidate for stimulator Urology Medication:none Antibiotic Allergy:none Blood Thinner:none Construction Skills Teacher Required: No Allergies No Known Allergies Allergy (Verified 10/17/24 14:25) Medication List - Last Reconciled 10/17/24 by BRANDON Chin- bisacodyl (Fleet Bisacodyl) 10 mg (30 mL) KS DAILY 90 days ximjrvodzt-qxhfzcazigarh-purr 50-325-40 mg 1 tab PO Q6H PRN clonidine HCl 0.1 mg PO BEDTIME cyclobenzaprine 5 mg PO TID PRN escitalopram oxalate 10 mg PO DAILY 30 days gabapentin 300 mg PO TID 30 days hydrocortisone 2.5% (Proctosol HC) 1 appl KS BEDTIME PRN hydroxyzine HCl 25 mg PO BEDTIME ketoconazole 2% 1 appl topical 3XW 30 days lidocaine 5% (Lidoderm) 1 patch topical DAILY loratadine (Claritin) 10 mg PO DAILY menthol-zinc oxide 0.44-20.6 % (Calmoseptine) 1 appl topical BID PRN methylcellulose (laxative) (Citrucel) 500 mg PO TID omeprazole 40 mg PO DAILY 90 days polyethylene glycol 3350 (Miralax) 17 grams PO DAILY prucalopride (Motegrity) 1 mg PO DAILY 30 days selenium sulfide 1% (Dandruff Shampoo (selenium sulfide)) 5 mL topical 2XW 30 days sennosides (senna) 8.6 mg PO DAILY PRN simethicone (Gas Relief 80 (simethicone)) 80 mg PO TID-QID PRN HPI Comments Details: Brayden is a very pleasant 39-year-old male patient of . He has a past medical history of myxopapillary ependymoma of spinal cord, anxiety, perineural cyst, and lumbar spondylosis of myelopathy. He presents to the office today for a consultation for InterStim therapy. In discussion with the patient today he reports having had spinal surgery a proximally 3-5 years ago for myxopapillary ependymoma of spinal cord and has since had difficulties with his bowel movements and urinary habits. He discusses following up with Gastroenterology in recommendations were made for urology referral to further assess candidacy for InterStim placement. In office urinalysis results reviewed with the patient today. PVR 15 mL We discussed InterStim and information was provided to the patient regarding InterStim. He discusses feeling he has a difficult time emptying his bladder at baseline in more so with constipation. He denies gross/visible hematuria, dysuria, foul smelling urine, flank pain, fever, and or chills. We discussed further treatment options and risks and benefits of these treatment options. All questions were answered. He otherwise offers no other issues or concerns at this time. Plan For managing the patient's straining with urination and constipation we discussed InterStim therapy extensively. This two-stage neuromodulation therapy involves a trial period preceding permanent device implantation, offering a dynamic approach to relieving symptoms linked to presumed post-surgical nerve dysfunction. Urodynamic tests are available to provide additional diagnostic clarity if needed. I relayed the importance of appropriately managing constipation through dietary and pharmacological interventions to mitigate worsening urinary symptoms. We agreed to schedule a follow-up upon the patient's decision to initiate the InterStim trial, with consent discussed before any surgical procedure. Patient was informed and verbally consented to the use of an ambient scribe for clinic note documentation during this visit. Discussion Notes InterStim therapy was extensively discussed, including its mechanism, two-part implementation strategy, and the procedural approach. The patient understands the trial nature of the initial stage, utilizing external device evaluation prior to permanent implantation only upon proven benefit. Risks were outlined, ensuring minimal impact due to procedural safeguards under fluoroscopic guidance. Additional benefits for addressing combined urinary retention and constipation symptoms post-surgery were emphasized. Consent will be secured before any procedural undertaking. Follow-up plans will be contingent upon his decision to proceed, ensuring he feels adequately informed about all therapeutic options. 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 Anxiety Blurry vision Perineural cyst Lumbar spondylosis with myelopathy Surgical History History of lumbar surgery History of ankle surgery Family History Mother Diabetes Stroke High blood pressure Sister Thyroid condition Social History Housing: House Alcohol intake: current Alcohol intake frequency: holidays/special occasions only Alcohol type: beer Patient Tobacco Use Status: Former Tobacco user Tobacco use type: Cigarette e-Cigarette/Vaping Use: Never Used Second Hand Smoke Exposure: No service: No Current occupational status: unemployed Cognitive needs: No Hearing needs: No Vision needs: Yes Review of Systems Const All systems reviewed & are unremarkable except as noted in HPI and below Physical Exam Const General: cooperative, healthy appearing, comfortable, no acute distress, well developed, alert and awake Orientation/consciousness: patient oriented x3 Limitations: no limitations HEENT Head: Yes normal to inspection, Yes normocephalic and Yes atraumatic Ears: hearing grossly normal bilaterally Eyes General: appearance normal, both eyes and all related structures Neck Neck: Yes normal visual inspection and Yes trachea midline Chest Chest palpation & inspection: normal inspection of the chest Resp Effort & Inspection: normal respiratory effort and able to speak in complete sentences Cardio Rate: regular rate GI Inspection: Yes normal to inspection General: Yes no CVA tenderness Back/Spine/Pelvis Back: no CVA tenderness Skin General skin exam: no rashes or lesions noted Neuro General: patient oriented x3 Extrem General: Yes normal to inspection Psych Appearance: grossly normal and well kempt Mental Status: mental status grossly normal Speech and movement: Normal speech and movement present and Clear speech present Affect: normal affect Attitude: cooperative Thought process: Normal thought process present Thought content: Normal thought content present Insight: Fair insight present (Psych) Judgement: Fair judgement present (Psych) Results AMB Urinalysis, Automated UA Leukoctes 0 Zac/uL Last Edit by HIRO Merchant on 10/17/24 13:19 UA Nitrite Negative Last Edit by HIRO Merchant on 10/17/24 13:19 UA Urobilinogen 0.2 mg/dL Last Edit by HIRO Merchant on 10/17/24 13:1 9 UA Protein 15 mg/dL Last Edit by HIRO Merchant on 10/17/24 13:19 UA pH 6.0 Last Edit by HIRO Merchant on 10/17/24 13:19 UA Blood 0 Basilio/uL Last Edit by HIRO Merchant on 10/17/24 13:19 UA Specific [place] 1.025 Last Edit by HIRO Merchant on 10/17/24 13: 19 UA Ketone Negative Last Edit by HIRO Merchant on 10/17/24 13:19 UA Bilirubin 0 mg/dL Last Edit by HIRO Merchant on 10/17/24 13:19 UA Glucose 0 mg/dL Last Edit by HIRO Merchant on 10/17/24 13:19 Results Reviewed Results Reviewed: Laboratory Last Values Urine pH (Auto) 6.0 10/17/24 13:18 Specific [place] (Auto) 1.025 10/17/24 13:18 Urine Protein (Auto) 15 mg/dL 10/17/24 13:18 Glucose (UA)(Auto) 0 mg/dL 10/17/24 13:18 Urine Ketones (Auto) Negative 10/17/24 13:18 Urine Blood (Auto) 0 Basilio/uL 10/17/24 13:18 Urine Nitrite (Auto) Negative 10/17/24 13:18 Urine Bilirubin (Auto) 0 mg/dL 10/17/24 13:18 Urine Urobilinogen (Auto) 0.2 mg/dL 10/17/24 13:18 Leukocyte Esterase (Auto) 0 Zac/uL 10/17/24 13:18 Assessment & Plan Assessment & Plan (1) Constipation due to neurogenic bowel: Code(s): K59.00 - Constipation, unspecified; K59.2 - Neurogenic bowel, not elsewhere classified Category: Medical (2) Straining during urination: Code(s): R39.16 - Straining to void Category: Medical Plan In office urinalysis results reviewed with the patient today; as noted above. PVR 15 mL We discussed InterStim; risks and benefits All questions were answered Information provided we discussed further treatment options and risks and benefits of these treatment options. Patient will call to schedule follow-up Orders: Orders AMB Urinalysis Automated Today Z13.9 - Encounter for screening, unspecified Patient Instructions: The patient had an opportunity to ask questions regarding the treatment plan. All questions were answered. Physical exam, labs, and imaging were discussed and reviewed in detail. As well as risks, benefits, and discussion of treatment choices. No major barriers to understanding were identified. The patient expressed understanding and agreement with the above treatment plan. The patient was made aware they should contact our office by phone for worsening of their current condition, the appearance of new symptoms, or with any questions or concerns. Compliance is encouraged with any medications and follow up testing that is ordered. It is a privilege to be allowed the opportunity to participate in? your urological care.? Again, if you have any questions or concerns If you have any questions or concerns please do not hesitate to contact me. The office is [phone]. This note is constructed using voice recognition software. While every effort has been made to ensure accuracy district manager postal service errors may have been included. Yours sincerely, CRISTY Chin Coding Level of Care Code New Pt Level 3 (45052) Diagnoses Constipation due to neurogenic bowel K59.00; K59.2 Straining during urination R39.16
--- OUTSIDE RECORDS SUMMARY | 2024-10-17 13:54 | XMS_ITS | Clinical Summary ---
Author Organization [facility] Address [address] [place] [address] Care Team Providers Care Software Validation Technician Name Role Phone Sujey Sanchez MD Primary Care Provid er Medications [...] age to complete this topic Care Teams Software Validation Technician Relationship Specialty Start Date End Date Sujey aSnchez MD [address] [place] [address] , [address] [facility] D/B/A: [facility] [place] [address] PCP - General Internal Medicine 09/16/20
== END 2024-10-17 13:43 | disposition home or self-care (01) ==
LOC: HO.HUSH 12:50
PROVIDERS: PCP Internal Medicine; Visit Provider Nurse Practitioner Family
DX: K59.00 Constipation, unspecified (principal); K59.2 Neurogenic bowel, not elsewhere classified; R39.16 Straining to void; Z13.9 Encounter for screening, unspecified
CPT/HCPCS: 99203

== ENCOUNTER → 2024-10-17 12:49 | Outpatient (BNVA) | payer OTHER, SELFPAY | PROVIDERS: PCP Internal Medicine; Visit Provider Nurse Practitioner Family | DX: R33.9 Retention of urine, unspecified (principal); K59.00 Constipation, unspecified; K59.2 Neurogenic bowel, not elsewhere classified; R39.12 Poor urinary stream; R39.16 Straining to void | CPT/HCPCS: 81003; 99202 ==

== ENCOUNTER 2024-11-10 13:04 | Outpatient (REF) | payer OTHER, SELFPAY ==
[2024-11-10] MEDS: gadobutroL 10 ML VIAL IVPUSH (13:58)
== END 2024-11-10 13:05 | disposition home or self-care (01) ==
LOC: HO.MRI 13:04
PROVIDERS: PCP Internal Medicine; Visit Provider Neurological Surgery
DX: D43.4 Neoplasm of uncertain behavior of spinal cord (principal)
CPT/HCPCS: 72197; A9585

== ENCOUNTER → 2024-11-10 13:30 | Outpatient (BNV) | payer OTHER, SELFPAY | PROVIDERS: PCP Internal Medicine; Visit Provider Radiology Diagnostic Radiology | DX: D43.4 Neoplasm of uncertain behavior of spinal cord (principal) | CPT/HCPCS: 72197 ==

== ENCOUNTER 2025-02-05 15:15 | Outpatient (AMB) | payer OTHER, SELFPAY ==
[2025-02-05 15:20] VITALS: BP 120/82; PULSE 78; TEMP 36.3; O2SAT 97; BMI 28.9
--- NOTE | 2025-02-05 15:20 | A.OFFPC_ITS ---
Vital Signs 02/05/25 15:20 Height 6 ft Weight 213 lb 4 oz BMI 28.9 BP 120/82 Blood Pressure Location Lt brachial Position Sitting Pulse 78 Pulse Source Pulse Oximeter Temp 97.3 F Temp Source Temporal Artery Scan Pulse Oximetry (%) 97 Oxygen Delivery Method Room Air Intake Visit Reasons: Back pain , right thigh pain and rash to hands Allergies No Known Allergies Allergy (Verified 02/05/25 15:43) Medication List - Last Reconciled 02/05/25 by Richard Bonilla MD bisacodyl (Fleet Bisacodyl) 10 mg (30 mL) NH DAILY 90 days jefmroeqwp-gkllzfpmihwik-lbgy 50-325-40 mg 1 tab PO Q6H PRN clonidine HCl 0.1 mg PO BEDTIME cyclobenzaprine 5 mg PO TID PRN escitalopram oxalate 10 mg PO DAILY 30 days gabapentin 300 mg PO TID 30 days hydrocortisone 2.5% (Proctosol HC) 1 appl NH BEDTIME PRN hydroxyzine HCl 25 mg PO BEDTIME ketoconazole 2% 1 appl topical 3XW 30 days lidocaine 5% (Lidoderm) 1 patch topical DAILY loratadine (Claritin) 10 mg PO DAILY menthol-zinc oxide 0.44-20.6 % (Calmoseptine) 1 appl topical BID PRN methylcellulose (laxative) (Citrucel) 500 mg PO TID omeprazole 40 mg PO DAILY 90 days polyethylene glycol 3350 (Miralax) 17 grams PO DAILY prucalopride (Motegrity) 1 mg PO DAILY 30 days selenium sulfide 1% (Dandruff Shampoo (selenium sulfide)) 5 mL topical 2XW 30 days sennosides (senna) 8.6 mg PO DAILY PRN simethicone (Gas Relief 80 (simethicone)) 80 mg PO TID-QID PRN Tobacco use date assessed: 02/05/25 Dental Screening Dental Screen Date: 02/05/25 Did you have a dental visit in the last 12 months?: No Did you have a dental problem in the last 6 months where you did not have access to dental care?: No Was dental information given to patient?: Patient has dentist HPI Back pain , right thigh pain and rash to hands HPI Details Patient comes in today complaining of a recurrent painful and itchy rash on his hands for the past few days He also has pitting and damaged fingernails on both hands, which he states have been going on for the past few months now and he would like to have these checked out and addressed/corrected Patient also reports that he has been having trouble sleeping at night because of recurrent involuntary leg movements, which he is attributing to restless legs syndrome He has also been experiencing a recurrent sensation of vibration his right thigh that only seems to occur at nighttime and he does not know why this is occurring He denies any pain over his right thigh and states that this sensation of vibration does not seem to occur during any other time of the day Notes that he has also been experiencing frequent constipation since his spinal cord surgery with Dr. Potter back in 2019 Reports experiencing recurrent pain over the RUQ abdominal area - states that the pain often feels like it bores straight into his back and also up into his right chest area He denies any fever, headaches or dizziness Denies any exertional chest pains or increased shortness of breath No nausea/vomiting and states that his right upper quadrant abdominal pain does not appear to be related to oral intake and is not relieved by bowel movements [facility] Medical History (Updated 02/09/25 @ 02:06 by Richard Bonilla MD) Overweight (BMI 25.0-29.9) 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 Anxiety Blurry vision Perineural cyst Lumbar spondylosis with myelopathy Surgical History History of lumbar surgery History of ankle surgery Family History Mother Diabetes Stroke High blood pressure Sister Thyroid condition Social History Housing: House Alcohol intake: current Alcohol intake frequency: holidays/special occasions only Alcohol type: beer Patient Tobacco Use Status: Former Tobacco user Tobacco use type: Cigarette e-Cigarette/Vaping Use: Never Used Second Hand Smoke Exposure: No service: No Current occupational status: unemployed Cognitive needs: No Hearing needs: No Vision needs: Yes Questionnaire PHQ-9 Over the last 2 weeks, how often have you been bothered by any of the following problems? 1. Little interest or pleasure in doing things: more than half the days 2. Feeling down, depressed, or hopeless: several days 3. Trouble falling or staying asleep, or sleeping too much: nearly every day 4. Feeling tired or having little energy: more than half the days 5. Poor appetite or overeating: more than half the days 6. Feeling bad about yourself - or that you are a failure or have let yourself or your family down: several days 7. Trouble concentrating on things, such as reading the newspaper or watching television: several days 8. Moving or speaking so slowly that other people could have noticed. Or the opposite - being so fidgety or restless that you have been moving around a lot more than usual: several days 9. Thoughts that you would be better off or of hurting yourself in some way: not at all Total score: 13 Depression Screening Interpretation: Positive Depression Screening Follow-up: Existing condition, In treatment, Community Mental Health Worker F/U and Follow- up Visit Requested Depression Screening Done: Yes 29640 - PHQ-9 Billing: Yes Source: Developed by Drs. John Dunham, Lilian Pride, Farooq Melissa and colleagues, with an educational toya from [employer]. Thrive Questionnaire Date Thrive assessed: 02/05/25 I am a: Patient What is your living situation today?: I have a steady place to live Within the past 12 months, did the food you bought not last and you didn't have the money to get more?: Often true Within the past 12 months, did you worry whether your food would run out before you got money to buy more?: Never true Do you have trouble paying for medicines?: No Do you have trouble getting transportation to medical appointments?: No Do you have trouble paying your heating and electricity bill?: No Do you have trouble taking care of your child, family member or friend?: No Do you have trouble with day-to-day activities such as bathing, preparing meals, shopping, managing finances, etc.?: Yes Are you currently unemployed and looking for a job?: Yes Are you interested in more education?: No Please select the resources that you would like help with: Job search/training Currently or been in a relationship where the following occur: No concerns reported THRIVE Score: 1 AUDIT C Alcohol Use Questionnaire (AUDIT-C) 1. How often do you have a drink containing alcohol?: Monthly or less 2. How many drinks containing alcohol do you have on a typical day when you are drinking?: 3 or 4 3. How often do you have six or more drinks on one occasion?: Never Total Score: 2 Score Reviewed/Action Taken: Yes CARMENZA-7 AMB Questionnaire CARMENZA-7 Date CARMENZA - 7 assessed: 02/05/25 Feeling nervous, anxious, or on edge: 1 = Several days Not being able to stop or control worryin = Several days Worrying too much about different things: 1 = Several days Trouble relaxin = Several days Being so restless that it is hard to sit still: 1 = Several days Becoming easily annoyed or irritable: 1 = Several days Feeling afraid as if something awful might happen: 1 = Several days Total CARMENZA-7 score (0-4 normal; 5-9 mild; 10-14 moderate; 15-21 severe): 7 Source: Developed by Drs. John Dunham, Lilian Pride, Farooq Melissa and colleagues, with an educational toya from [employer]. CARMENZA-7 Assessment Billing CARMENZA-7 Assessment Tool: CARMENZA-7 Assessment 17488 Review of Systems Const Denies chills, Reports difficulty sleeping, Denies fatigue, Denies fever(s) and Denies headache(s) ENT Denies dysphagia, Denies dizziness, Denies otalgia, Denies headache(s), Denies neck pain, Denies odynophagia and Denies sore throat Card Denies chest pain, Denies palpitations and Denies dyspnea Resp Denies chest congestion, Denies cough and Denies dyspnea GI Reports as per HPI, Reports abdominal pain (recurrent, over the RUQ - see HPI), Reports constipation, Denies dysphagia, Denies heartburn, Denies diarrhea, Denies nausea, Denies odynophagia and Denies vomiting Denies difficulty urinating, Denies dysuria, Denies nocturia and Denies urinary frequency Musc Denies back pain and Denies neck pain Skin/Breast Reports nail changes (see HPI) and Denies rash Neuro Denies dizziness, Denies headache(s), Reports restless legs and Reports paresthesias ( vibratory sensation over the right thigh - see HPI) Endo Denies fatigue and Denies palpitations Physical exam (Primary Care) Vital Signs: Last Vital Signs Temp 97.3 F 02/05/25 15:20 Pulse 78 02/05/25 15:20 BP 120/82 02/05/25 15:20 Pulse Ox 97 02/05/25 15:20 Oxygen Delivery Method Room Air 02/05/25 15:20 BMI result Body Mass Index 28.9 Tobacco/Smoking Status: Tobacco use Status Tobacco use date assessed 02/05/25 02/05/25 15:24 Patient Tobacco Use Status Former Tobacco user 02/05/25 15:24 Tobacco use type Cigarette 02/05/25 15:24 e-Cigarette/Vaping Use Never Used 02/05/25 15:24 PHQ-9: PHQ-9 Score PHQ-9: Total score 13 02/05/25 15:44 Depression Screening Interpretation: Positive Depression Screening Follow-up: Existing condition, In treatment, Community Mental Health Worker F/U and Follow- up Visit Requested Thrive Assessment: Date of Thrive Assessment Date Thrive assessed 02/04/25 02/05/25 15:24 Currently or been in a relationship where the following occur: No concerns reported Const General: no acute distress and alert HENMT Ears: TM's normal bilaterally and EAC's normal Throat: Yes posterior oropharynx normal and Yes tonsils normal (no TP congestion) Neck Neck: Yes supple and No lymphadenopathy Thyroid: Thyroid normal Resp Auscultation: clear to auscultation bilaterally, no rales and no wheezes Cardio Rate: regular rate Rhythm: regular rhythm Heart sounds: no murmurs GI Palpation (GI): Soft to palpation, Tenderness to palpation present (GI) (mild) in the RUQ, no guarding, not rigid and No Rebound tenderness present Auscultation: normal bowel sounds General: Yes no CVA tenderness Back/Spine/Pelvis Back: no CVA tenderness Thoracic/Lumbar Spine: No lumbar spinal tenderness Skin Rashes: no rashes Nails: discolored, dystrophic and pitting Extrem General: Yes no clubbing, cyanosis or edema Coding Level of Care Code Est Pt Level 4 (77539) Diagnoses Nail dystrophy L60.3 Paresthesia of right lower extremity R20.2 Restless leg syndrome G25.81 Constipation K59.00 Constipation type: unspecified constipation type Overweight (BMI 25.0-29.9) E66.3 Additional Codes CARMENZA-7 Assessment Billing - CARMENZA-7 Assessment Tool: CARMENZA-7 Assessment 76501 ([id number]) PHQ-9 - 79544 - PHQ-9 Billing: Yes ([id number]) Assessment & Plan Assessment & Plan (1) Nail dystrophy: Code(s): L60.3 - Nail dystrophy Category: Medical Plan: Will refer patient to dermatology for further evaluation and management of his dystrophic fingernails on both hands (2) Paresthesia of right lower extremity: Code(s): R20.2 - Paresthesia of skin Category: Medical Plan: Will send patient for some labs ANJALI for further evaluation Will also send him for EMG and NCV for further evaluation (3) Restless leg syndrome: Code(s): G2.81 - Restless legs syndrome Category: Medical Plan: If his labs are unrevealing and his symptoms persist, then a trial of Ropinirole at bedtime can be considered (4) Constipation: Code(s): K59.00 - Constipation, unspecified Category: Medical Qualifiers: Constipation type: unspecified constipation type Qualified Code(s): K59.00 - Constipation, unspecified Plan: Reinforced increased oral fluids and dietary fiber intake Continue Miralax 17 gm QD and Motegrity 1 mg QD PRN Follow up with GI as scheduled (5) Overweight (BMI 25.0-29.9): Code(s): E66.3 - Overweight Category: Medical Plan: Reinforced diet/exercise as tolerated/lose weight Plan To return as scheduled in March 2025 for his annual physical examination with his PCP Orders: Orders C Reactive Protein 02/05/25.81 - Restless legs syndrome, R20.2 - Paresthesia of skin Erythrocyte Sedimentation Rate 02/05/25.81 - Restless legs syndrome, M79.7 - Fibromyalgia, R20.2 - Paresthesia of skin Rheumatoid Factor 02/05/25.81 - Restless legs syndrome, R20.2 - Paresthesia of skin Lyme IgG/IgM w/reflex to WB 02/05/2581 - Restless legs syndrome, R20.2 - Paresthesia of skin, W57.XXXA - Bitten or stung by nonvenomous insect and other nonvenomous arthropods, initial encounter Comprehensive Met. Panel 02/05/25 G2.81 - Restless legs syndrome, R20.2 - Paresthesia of skin NE nerve conduction velocity 02/05/25 M79.661 - Pain in right lower leg, M79.662 - Pain in left lower leg, R20.2 - Paresthesia of skin TARI Reflex Titer and Pattern 02/05/25 G25.81 - Restless legs syndrome, R20.2 - Paresthesia of skin Complete Blood Count Auto Diff 02/05/25 D64.9 - Anemia, unspecified, G25.81 - Restless legs syndrome, R20.2 - Paresthesia of skin TSH reflex Free T4 02/05/25 E78.00 - Pure hypercholesterolemia, unspecified, G25.81 - Restless legs syndrome, R20.2 - Paresthesia of skin UA CC w/rflx Micro + Cult 02/05/25 G25.81 - Restless legs syndrome, R20.2 - Paresthesia of skin, R30.0 - Dysuria NE electromyogram (EMG) 02/05/25 M79.661 - Pain in right lower leg, M79.662 - Pain in left lower leg, R20.2 - Paresthesia of skin Referrals Dermatology Referral R21 - Rash and other nonspecific skin eruption
--- OUTSIDE RECORDS SUMMARY | 2025-02-05 16:30 | XMS_ITS | Clinical Summary ---
Author Organization [address] [facility] Address [address] [place] [address] Phone Care Team Providers Care Director Clinical Operations Name Role Phone Sujey Abreu MD Primary Care Provider [phone] Encounters Date Type Department Care Team Description 11/19/2024 Telephone Neurosurgery [facility] [address] [id number] Michelle Potter MD from Last 3 Months Surgical History Surgery Date Site/Laterality Comments ANKLE [...] series) 2006 Cholesterol Screening (Lipid Panel) 05/15/2022 HIV Screening 05/15/2022 Hepatitis C Screening 05/15/2022 Social Influencers of Health Screening 05/15/2022 COVID-19 Vaccine (1 - 2023-2 5 season) 2024 Depression Screening 06/12/2024 Influenza Vaccine (#1) 2025 05/19/2020 HIB Vaccines Aged Out No longer [...] 5 Years) and At-Risk Patients (6 to 49 Years) Aged Out No longer eligi ble based on patient's age to complete this topic RSV Immunization Patients Un jenny 20 months Aged Out No longer eligible b ased on patient's age to complete this topic Varicella Vaccines Aged Out No longer eligible based on patient's age to complete this topic Procedures Procedure Name Priority Date/Time Associated Diagnosis Comments EXTERNAL MRI REPORT Routine 11/10/2024 5:15 PM EDT from Last 3 Months Results * External MRI Report (11/10/2024 5:15 PM EDT) Anatomical Region Laterality Modality Magnetic Resonan ce us Historical Provider MD RIGGS MRI PROCEDURES Final Result from Last 3 Months Insurance [facility] [place] [address] Care Teams Director Clinical Operations Relationship Specialty Start Date End Date Sujey Abreu MD [address] [facility] , [address] [facility] D/B/A: [facility] [place] PCP - General Internal Medicine 06/24/21
--- OUTSIDE RECORDS SUMMARY | 2025-02-05 16:30 | XMS_ITS | Clinical Summary ---
Author Organization [facility] Address [address] [place] [address] Care Team Providers Care Tour Conductor Name Role Phone Sujey Sanchez MD Primary [...] 111 03/17/2021 3:17 PM EDT Temperature 36.6 C (97.8 F) 03/17/2021 3:17 PM EDT Respiratory Rate - - Oxygen Saturation 99% [...] (1 - Tdap) 2006 Influenza Vaccine (#1) 2025 Pneumococcal Vaccine Aged Out No long er eligible based on patient's age to complete this topic RSV Ped < 20 months Aged Out No longe r eligible based on patient's age to complete this topic Care Teams Tour Conductor Relationship Specialty Start Date End Date Sujey Sanchez MD [address] [place] [address] , [address] [facility] D[facility]B/A[facility] [place] [address] PCP - General Internal Medicine 09/16/20
== END 2025-02-05 15:54 | disposition home or self-care (01) ==
LOC: HO.HMCH 15:16
PROVIDERS: PCP Internal Medicine; Visit Provider Internal Medicine
DX: L60.3 Nail dystrophy (principal); R20.2 Paresthesia of skin; G25.81 Restless legs syndrome; K59.00 Constipation, unspecified; E66.3 Overweight

== ENCOUNTER → 2025-02-05 15:15 | Outpatient (BNVA) | payer OTHER, SELFPAY | PROVIDERS: PCP Internal Medicine; Visit Provider Internal Medicine | DX: M79.651 Pain in right thigh (principal); R21 Rash and other nonspecific skin eruption; K59.00 Constipation, unspecified; R10.11 Right upper quadrant pain; L60.3 Nail dystrophy; R20.2 Paresthesia of skin; G25.81 Restless legs syndrome | CPT/HCPCS: 96127; 99212 ==

== ENCOUNTER 2025-03-09 00:15 | Emergency (ER) | payer OTHER, SELFPAY ==
--- NOTE | ~2025-03-09 | CT_ITS ---
CLINICAL HISTORY: alvarez CT head without contrast Comparison: CT/CT/SR - CT HEAD/BRAIN WO IV CON - 02/15/24 19:37 EDT Findings: No intracranial mass, midline shift, hydrocephalus, or acute hemorrhage. Visualized paranasal sinuses and mastoid air cells appear clear. There is leftward deviation of the nasal septum. No acute skull fracture. Impression: 1. No acute intracranial abnormality. No acute intracranial hemorrhage. This document has been electronically signed by: Ignacio Tipton MD on 03/09/2025 02:08:44
[2025-03-09 00:17] VITALS: BP 117/73; PULSE 76; RESP 18; TEMP 36.6; O2SAT 97; BMI 28.8
[2025-03-09 00:41] LABS: MANUAL DIFF FLAG NO
[2025-03-09 00:43] LABS: Hematocrit 41.3 % (42.0-52.0); Hemoglobin 14.0 g/dl (14.0-18.0); Imm Gran Abs Auto 0.03 X10*3/uL (0.00-0.03); Imm Gran Pct Auto 0.3 % (0.0-0.4); Lymphocytes Absolute Auto 2.9 X10*3/uL (1.2-4.9); Mean Corpuscular HGB Conc 33.9 g/dl (31.0-36.0); Mean Corpuscular Hemoglobin 25.9 pg (27.0-33.0); Mean Corpuscular Volume 76.5 fL (80.0-98.0); NRBC Abs Auto 0.000 X10*3/uL (0.0-0.012); NRBC Pct Auto 0.0 /100WBC (0.0-0.2); Platelet Count 296 X10*3/uL (160-400); Red Blood Count 5.40 X10*6/uL (4.60-5.80); White Blood Count 9.9 X10*3/uL (4.8-10.8)
--- NOTE | 2025-03-09 00:45 | ED_ITS ---
HPI - General Adult General Chief complaint: General Medical Stated complaint: migraines Time Seen by Provider: 03/09/25 00:31 History of Present Illness HPI narrative: Patient is a 40-year-old male with no significant past medical history complains that he had headache for the last 3 weeks. He feels the light bother him. He denies any focal weakness. Positive nausea. Loud noise makes it worse. Patient complaining of lower back pain. There is no abdominal pain. No fever no chills. No chest pain. No diaphoresis. Did report to nursing that he had some belly pain. Although none now. Related Data Home Medications ?Medication ?Instructions ?Recorded ?Confirmed clonidine HCl 0.1 mg tablet 0.1 mg PO BEDTIME 03/28/24 02/05/25 Previous Rx's ?Medication ?Instructions ?Recorded escitalopram oxalate 10 mg tablet 10 mg PO DAILY 30 da ys #30 tabs 02/09/22 selenium sulfide 1 % shampoo 5 ml topical 2XW 30 days #207 mL 04/23/22 (Dandruff Shampoo (selenium sulfide)) hydrocortisone 2.5 % topical cream 1 appl [place] BEDTIME P RN hemorrhoids 06/07/22 with perineal applicator #30 grams (Proctosol HC) hydroxyzine HCl 25 mg tablet 25 mg PO BEDTIME #30 tabs 04/11/23 lidocaine 5 % topical patch 1 patch topical DAILY #30 ea 05/14/23 (Lidoderm) cyclobenzaprine 5 mg tablet 5 mg PO TID PRN muscle spa sm #14 10/30/23 tabs omeprazole 40 mg capsule,delayed 40 mg PO DAILY 90 day s #90 caps 10/30/23 release [id number]-[id number]-uukhyrpj 1 tab PO Q6H PRN hea dache #10 tabs 02/15/24 50 mg-325 mg-40 mg tablet ketoconazole 2 % shampoo 1 appl topical 3XW 30 days # 120 mL 03/28/24 loratadine 10 mg tablet (Claritin) 10 mg PO DAILY #30 tabs 03/28/24 menthol 0.44 %-zinc oxide 20.6 % 1 appl topical BID WV N skin 03/28/24 topical ointment (Calmoseptine) irritation #113 grams methylcellulose (laxative) 500 mg 500 mg PO TID #90 ta bs 07/03/24 tablet (Citrucel) polyethylene glycol 3350 17 17 g PO DAILY #510 grams 0 07/03/24 gram/dose oral powder (Miralax) simethicone 80 mg chewable tablet 80 mg PO TID-QID PRN abdominal 07/03/24 (Gas Relief 80 (simethicone)) distention #30 tabs sennosides 8.6 mg tablet (senna) 8.6 mg PO DAILY PRN f or 07/10/24 constipation #90 tabs gabapentin 300 mg capsule 300 mg PO TID 30 days #90 ca ps 07/11/24 bisacodyl 10 mg/30 mL enema (Fleet 10 mg (30 mL) WV DA [place] 10/09/24 Bisacodyl) constipation 90 days #2,700 mL prucalopride 1 mg tablet 1 mg PO DAILY 30 days #30 ta bs 10/09/24 (Motegrity) ibuprofen 400 mg tablet 400 mg PO Q6H PRN pain #20 t abs 03/09/25 ondansetron 4 mg disintegrating 4 mg PO TID PRN nausea and 03/09/25 tablet vomiting 5 days #10 tabs Allergies Allergy/AdvReac Type Severity Reaction Status Date / Time No Known Allergies Allergy Verified 03/09/25 00:20 Review of Systems 2 Review of Systems: No fever no chills no coughing or congestion no neck pain no focal weakness no sudden deaths in the family Yes all other systems are reviewed and are negative PMFSH Past Medical History Attestation statement: The following information was validated with the patient. 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 Anxiety Blurry vision Perineural cyst Lumbar spondylosis with myelopathy Surgical History History of lumbar surgery History of ankle surgery Family History Family History Mother Diabetes Stroke High blood pressure Sister Thyroid condition Social History Social History Housing: House Alcohol intake: current Alcohol intake frequency: holidays/special occasions only Alcohol type: beer Patient Tobacco Use Status: Former Tobacco user Tobacco use type: Cigarette Smoked in Last 30 Days: Yes e-Cigarette/Vaping Use: Never Used Second Hand Smoke Exposure: No Use of substances other than those prescribed or required for medical reasons: No Advance Directives: No service: No Current occupational status: unemployed Cognitive needs: No Hearing needs: No Vision needs: Yes Physical Exam ED Exam Exam: Appearance: Alert. Oriented X3. No acute distress. Eyes: Pupils equal, round and reactive to light. ENT: Pharynx normal. Neck: Normal inspection. Neck supple. No lymph nodes noted. No crepitus CVS: Normal heart rate and rhythm. Pulses normal. Normal S1 and S2 Respiratory: No respiratory distress. Breath sounds normal. No Wheezing. No rales Abdomen: Soft and nontender. No rigidity. No distention. good BS x4 Skin: Skin warm and dry. Normal skin color. Normal skin turgor. Extremities: No lower extremity edema. Neurovascular intact to all extremities. No Lacerations. No Rash Neuro: Oriented X 3. No motor deficit. No sensory deficit. Moving all extermities. No slurred speech Vital Signs: Vital Signs - 24 hr 03/09/25 00:17 03/09/25 02:30 Temperature 97.8 F 98.1 F Pulse Rate 76 59 Respiratory Rate 18 18 Blood Pressure 117/73 102/69 Pulse Oximetry 97 97 Oxygen Delivery Method Room Air Room Air BMI result Body Mass Index 28.8 Medications Administered Discontinued Medications Generic Name Dose Route Start Last Admin Trade Name Freq PRN Reason Stop Dose Admin Diphenhydramine HCl 25 mg 03/09/25 00:44 03/09/25 00:59 Diphenhydramine Hcl 50 Mg/Ml Vial IVPUSH 03/09/25 00:45 25 mg ONCE ONE Administration Sodium Chloride 1,000 mls @ 999 mls/hr 03/09/25 00:45 03/09/25 02:44 Ns IV 03/09/25 01:45 Infused .Q1H1M SONAL Infusion Ketorolac Tromethamine 15 mg 03/09/25 00:44 03/09/25 00:59 Ketorolac Tromethamine 15 Mg/Ml Vial IVPUSH 03/09/25 00:45 15 mg ONCE ONE Administration Metoclopramide HCl 10 mg 03/09/25 00:44 03/09/25 00:59 Metoclopramide Hcl 10 Mg/2 Ml Vial IVPUSH 03/09/25 00:45 10 mg ONCE ONE Administration Medical Decision Making Medical Decision Making [facility] Narrative: Well-appearing neurologically intact patient's headache is worse with light. Worse with noise. Otherwise well-appearing. Patient's labs are unremarkable. Given IV fluids Reglan for nausea Benadryl and Toradol. CT scan of the head was done. My interpretation patient's CT head is grossly negative. Symptom improved will discharge home. Less likely to be meningitis as patient's symptoms greater than 8 days. History not consistent I received sign-out from my colleague Dr. Stauffer: CT scan does not show any acute abnormality. Differential Diagnosis Differential Diagnoses: The differential diagnosis associated with the presentation includes Migraine, intracranial bleed. Meningitis Admission/Observation Consideration of admission/observation: Escalation of care including admission/observation considered ( Given patient's symptoms and presentation, observation was consid) Lab Data [facility] Lab Attestation statement: I reviewed the patient's lab results. 03/09/25 00:35 03/09/25 00:35 Labs: Lab Results 03/09/25 Range/Units 00:35 WBC 9.9 (4.8-10.8) X10*3/uL RBC 5.40 (4.60-5.80) X10*6/uL Hgb 14.0 (14.0-18.0) g/dl Hct 41.3 L (42.0-52.0) % MCV 76.5 L (80.0-98.0) fL MCH 25.9 L (27.0-33.0) pg MCHC 33.9 (31.0-36.0) g/dl RDW 15.4 (11.0-16.0) % Plt Count 296 (160-400) X10*3/uL MPV 9.9 (9.4-12.4) fL Immature Gran % (Auto) 0.3 (0.0-0.4) % Neut % (Auto) 59.3 (45-73) % Lymph % (Auto) 29.5 (20-40) % [place] % (Auto) 8.6 (2-11) % Eos % (Auto) 1.6 (0-4) % Baso % (Auto) 0.7 (0-2) % Lymph # (Auto) 2.9 (1.2-4.9) X10*3/uL [place] # (Auto) 0.9 (0.1-1.2) X10*3/uL Eos # (Auto) 0.2 (0.0-0.4) X10*3/uL Baso # (Auto) 0.1 (0.0-0.2) X10*3/uL Abs Immat Gran (auto) 0.03 (0.00-0.03) X10*3/uL Absolute Neuts (auto) 5.9 (2.0-8.3) x10*3/uL Absolute Nucleated RBC 0.000 (0.0-0.012) X10*3/uL Nucleated RBC % (auto) 0.0 (0.0-0.2) /100WBC Sodium 141 (135-145) mmol/L Potassium 3.8 (3.3-5.1) mmol/L Chloride 108 (96-108) mmol/L Carbon Dioxide 25 (22-29) mmol/L Anion Gap 12 (12-20) BUN 12 (9-16) mg/dL Creatinine 1.03 (0.5-1.4) mg/dL Estim Creat Clear Calc 117.0 Estimated GFR > 60 Random Glucose 98 (60-115) mg/dL Calcium 9.0 D (8.4-10.2) mg/dL Total Bilirubin 0.8 (0.0-1.0) mg/dL AST 28 (5-37) U/L ALT 37 (0-40) U/L Alkaline Phosphatase 91 (39-117) U/L Total Protein 7.2 (6.5-8.0) g/dL Albumin 4.5 (3.5-5.0) g/dL Lipase 17 (8-78) U/L COVID-19 ([place]) Negative (Negative) COVID-19 Clin Com See Note Influenza Type A ([facility]) Negative (Negative) Influenza Type B ([facility]) Negative (Negative) Influenza A & B Note See Note Independent Interpretation I performed an independent interpretation of an: CT Scan (CT head negative for bleed) Radiology Impression Discussion of test interpretation with radiology: I have reviewed the radiologist's reading. Radiologist Impression: No intracranial mass, midline shift, hydrocephalus, or acute hemorrhage. Visualized paranasal sinuses and mastoid air cells appear clear. There is leftward deviation of the nasal septum. No acute skull fracture. Impression: 1. No acute intracranial abnormality. No acute intracranial hemorrhage. Tests considered The following testing was considered but not selected: MRI of the head not needed Prescription Management I considered prescription management with: Pain Medication Social Determinants Patient?s care significantly limited by Social Determinants of Health including: Problems related to primary support group Critical Care Time Critical Care Time Critical Care Time: Yes Total Critical Care Time: 35 Attestation: I have personally provided critical care time. Time includes review of lab data, radiology results, discussion with consultants, and monitoring for potential decompensation. Intervention performed as documented. Discharge Plan Discharge Clinical Impression: Migraine Patient Disposition: Home, Self-Care Instructions: Migraine Headache (ED) Additional Instructions: Please follow-up with your primary care physician tomorrow. If you have any worsening or new symptoms, please return to the emergency room or call 911 Prescriptions: New ibuprofen 400 mg tablet 400 mg PO Q6H PRN (Reason: pain) Qty: 20 0RF ondansetron 4 mg tablet,disintegrating 4 mg PO TID PRN (Reason: nausea and vomiting) 5 Days Qty: 10 0RF No Action Dandruff Shampoo (selenium) 1 % shampoo 5 ml topical 2XW 30 Days Qty: 207 1RF Rx Instructions: lather into wet hair; leave in place for approximately 3 mins ; rinse hydroxyzine HCl 25 mg tablet 25 mg PO BEDTIME Qty: 30 0RF sennosides [senna] 8.6 mg tablet 8.6 mg PO DAILY PRN (Reason: for constipation) Qty: 90 1RF gabapentin 300 mg capsule 300 mg PO TID 30 Days Qty: 90 1RF lidocaine [Lidoderm] 5 % adhesive patch,medicated 1 patch topical DAILY Qty: 30 0RF Rx Instructions: leave on most painful area for up to 12 hrs [id number]-[id number]-[id number] 50-325-40 mg tablet 1 tab PO Q6H PRN (Reason: headache) Qty: 10 0RF cyclobenzaprine 5 mg tablet 5 mg PO TID PRN (Reason: muscle spasm) Qty: 14 0RF omeprazole 40 mg capsule,delayed release(DR/EC) 40 mg PO DAILY 90 Days Qty: 90 1RF escitalopram oxalate 10 mg tablet 10 mg PO DAILY 30 Days Qty: 30 0RF hydrocortisone [Proctosol HC] 2.5 % cream with perineal applicator 1 appl WV BEDTIME PRN (Reason: hemorrhoids) Qty: 30 3RF clonidine HCl 0.1 mg tablet 0.1 mg PO BEDTIME ketoconazole 2 % shampoo 1 appl topical 3XW 30 Days Qty: 120 3RF loratadine [Claritin] 10 mg tablet 10 mg PO DAILY Qty: 30 0RF menthol-zinc oxide [Calmoseptine] 0.44-20.6 % ointment 1 appl topical BID PRN (Reason: skin irritation) Qty: 113 1RF Motegrity 1 mg tablet 1 mg PO DAILY 30 Days Qty: 30 0RF Fleet Bisacodyl 10 mg/30 mL enema 10 mg WV DAILY 90 Days Qty: 2700 0RF simethicone [Gas Relief 80 (simethicone)] 80 mg tablet,chewable 80 mg PO TID-QID PRN (Reason: abdominal distention) Qty: 30 3RF Citrucel 500 mg tablet 500 mg PO TID Qty: 90 5RF polyethylene glycol 3350 [Miralax] 17 gram/dose powder 17 g PO DAILY Qty: 510 6RF Referrals: Sujey Sanchez MD [Primary Care Provider, Internal Medicine] - 03/11/25 Stand Alone Forms: Work/School Release Print Language: Burundian
[2025-03-09 00:56] LABS: Alanine Aminotransferase 37 U/L (0-40); Albumin Level 4.5 g/dL (3.5-5.0); Alkaline Phosphatase 91 U/L (39-117); Anion Gap 12 (12-20); Aspartate Amino Transferase 28 U/L (5-37); Blood Urea Nitrogen 12 mg/dL (9-16); Calcium 9.0 mg/dL (8.4-10.2); Carbon Dioxide 25 mmol/L (22-29); Chloride 108 mmol/L (96-108); Creatinine Clr Calc Pharmacy 117.0; Estimated Glomerular Filt Rate > 60; Lipase 17 U/L (8-78); Potassium 3.8 mmol/L (3.3-5.1); Sodium 141 mmol/L (135-145); Total Protein 7.2 g/dL (6.5-8.0)
--- OUTSIDE RECORDS SUMMARY | 2025-03-09 01:00 | XMS_ITS | Clinical Summary ---
Author Organization [address] [place] [address] Address [address] [place] [address] Phone Care Team Providers Care Chicken Sexer Name Role Phone Sjuey Abreu MD Primary Care Provider [phone] Surgical History Surgery Date Site/Laterality Comments ANKLE [...] 05/15/2022 Social Influencers of Health Screening 05/15/2022 Depression Screening 06/12/2024 COVID-19 Vaccine (1 - 2023-2 5 season) 2025 Influenza Vaccine (#1) 2025 05/19/2020 HIB Vaccines [...] on patient's age to complete this topic Insurance [facility] Care Teams Chicken Sexer Relationship Specialty Start Date End Date Sujey Abreu MD [address] [place] [address] , [address] [facility] D/B/A: [facility] [place], [place] PCP - General Internal Medicine 06/24/21
--- OUTSIDE RECORDS SUMMARY | 2025-03-09 01:00 | XMS_ITS | Clinical Summary ---
Author Organization [facility] Address [address] [place] [address] Care Team Providers Care Gelatin Plant Supervisor Name Role Phone Sujey Sanchez MD Primary [...] age to complete this topic Care Teams Gelatin Plant Supervisor Relationship Specialty Start Date End Date Sujey Sanchez MD [address] [place] [address] , [address] [facility] D/B/A: [facility] [place] [address] PCP - General Internal Medicine 09/16/20
[2025-03-09 01:01] LABS: COVID-19 Test Negative (Negative); IDNOW Serial# 152EDE1D
[2025-03-09 01:02] LABS: IDNOW Serial# 16C4AD1C; Influenza B2 Negative (Negative)
[2025-03-09 02:30] VITALS: BP 102/69; PULSE 59; RESP 18; TEMP 36.7; O2SAT 97
[2025-03-09 03:32] VITALS: BP 106/59; PULSE 68; RESP 18; TEMP 36.6; O2SAT 98
[2025-03-09 03:40] VITALS: BP 106/59; PULSE 68; RESP 18; TEMP 36.6; O2SAT 98
== END 2025-03-09 03:49 | disposition home or self-care (01) ==
PROVIDERS: Emergency Medicine Emergency Medical Services; Emergency Provider Emergency Medicine; PCP Internal Medicine
DX: G43.909 Migraine, unspecified, not intractable, without status migrainosus (principal); R11.0 Nausea
CPT/HCPCS: 70450; 80053; 83690; 85025; 87502; 87635; 96361; 96374; 96375; 99284; 99285; J1200; J1885; J2765

== ENCOUNTER → 2025-03-09 00:44 | Outpatient (BNV) | payer OTHER, SELFPAY | PROVIDERS: Emergency Provider Emergency Medicine; PCP Internal Medicine; Visit Provider Radiology Diagnostic Radiology | DX: R51.9 Headache, unspecified (principal) | CPT/HCPCS: 70450 ==

== ENCOUNTER 2025-04-08 16:01 | Outpatient (AMB) | payer OTHER, SELFPAY ==
[2025-04-08 16:03] VITALS: BP 110/74; PULSE 90; O2SAT 98; BMI 28.2
--- NOTE | 2025-04-08 16:03 | A.OFFPC_ITS ---
Vital Signs 04/08/25 16:03 Height 6 ft Weight 208 lb BMI 28.2 BP 110/74 Blood Pressure Location Lt brachial Position Sitting Pulse 90 Pulse Source Pulse Oximeter Pulse Oximetry (%) 98 Oxygen Delivery Method Room Air Intake Visit Reasons: physical exam Cardiac Nurse Specialist Required: No Accompanied by: Self / Same As Patient Allergies No Known Allergies Allergy (Verified 04/08/25 16:14) Medication List - Last Reconciled 04/08/25 by Sujey Abreu MD bisacodyl (Fleet Bisacodyl) 10 mg (30 mL) [place] DAILY 90 days qlhyxtawoo-jstnozzcppauq-scuz 50-325-40 mg 1 tab PO Q6H PRN clonidine HCl 0.1 mg PO BEDTIME cyclobenzaprine 5 mg PO TID PRN escitalopram oxalate 10 mg PO DAILY 30 days gabapentin 300 mg PO TID 30 days hydrocortisone 2.5% (Proctosol HC) 1 appl [place] BEDTIME PRN hydroxyzine HCl 25 mg PO BEDTIME ibuprofen 400 mg PO Q6H PRN ketoconazole 2% 1 appl topical 3XW 30 days lidocaine 5% (Lidoderm) 1 patch topical DAILY loratadine (Claritin) 10 mg PO DAILY menthol-zinc oxide 0.44-20.6 % (Calmoseptine) 1 appl topical BID PRN methylcellulose (laxative) (Citrucel) 500 mg PO TID omeprazole 40 mg PO DAILY 90 days ondansetron 4 mg PO TID PRN 5 days polyethylene glycol 3350 (Miralax) 17 grams PO DAILY prucalopride (Motegrity) 1 mg PO DAILY 30 days selenium sulfide 1% (Dandruff Shampoo (selenium sulfide)) 5 mL topical 2XW 30 days sennosides (senna) 8.6 mg PO DAILY PRN simethicone (Gas Relief 80 (simethicone)) 80 mg PO TID-QID PRN Tobacco use date assessed: 04/08/25 Dental Screening Dental Screen Date: 04/08/25 Did you have a dental visit in the last 12 months?: Yes Did you have a dental problem in the last 6 months where you did not have access to dental care?: No Was dental information given to patient?: Patient has dentist HPI HPI Comments History of Present Illness Details The patient is a 40-year-old male presenting for a physical exam. The patient reports pain around his kidney area for more than a month, which he describes as a strong pain affecting one whole side of his body that is exacerbated by eating certain foods, such as milk products. He also notes recent difficulty urinating, requiring him to push for urine to come out, and experiences feeling lightheaded and dizzy after bowel movements. He has a history of constipation treated with MiraLAX and senna as needed. The patient reports chronic insomnia, stating he cannot sleep for days due to his nerves, and notes that sleep aids are not effective. He sees a psychiatrist and therapist for his mental health. His current medications include butalbital for migraines, clonidine 0.1 mg at bedtime, escitalopram 10 mg, and gabapentin. Regarding gabapentin, he reports his psychiatrist increased his dose from 300 mg to 400 mg, which was more effective, but he has since run out of the higher dose. He also admits to trying tramadol given to him by a friend. Past surgical history is significant for lumbar and ankle surgeries. Family history is positive for a mother with diabetes, high blood pressure, and a history of stroke, and a sister who had H. pylori. He stopped smoking in January and drinks beer on holidays and special occasions. 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 Anxiety Blurry vision Perineural cyst Lumbar spondylosis with myelopathy Surgical History History of lumbar surgery History of ankle surgery Family History Mother Diabetes Stroke High blood pressure Sister Thyroid condition Social History (Updated 04/08/25 @ 16:23 by Sujey Abreu MD) Housing: House Alcohol intake: former Patient Tobacco Use Status: Former Tobacco user Tobacco use type: Cigarette e-Cigarette/Vaping Use: Never Used Second Hand Smoke Exposure: No service: No Current occupational status: unemployed Cognitive needs: No Hearing needs: No Vision needs: Yes Questionnaire PHQ-9 Over the last 2 weeks, how often have you been bothered by any of the following problems? 1. Little interest or pleasure in doing things: several days 2. Feeling down, depressed, or hopeless: several days 3. Trouble falling or staying asleep, or sleeping too much: nearly every day 4. Feeling tired or having little energy: more than half the days 5. Poor appetite or overeating: several days 6. Feeling bad about yourself - or that you are a failure or have let yourself or your family down: several days 7. Trouble concentrating on things, such as reading the newspaper or watching television: not at all 8. Moving or speaking so slowly that other people could have noticed. Or the opposite - being so fidgety or restless that you have been moving around a lot more than usual: not at all 9. Thoughts that you would be better off or of hurting yourself in some way: not at all Total score: 9 Depression Screening Interpretation: Positive Depression Screening Follow-up: Existing condition, In treatment and Follow-up Visit Requested Depression Screening Done: Yes 28119 - PHQ-9 Billing: Yes Source: Developed by Drs. John Dunham, Lilian Pride, Farooq Melissa and colleagues, with an educational toya from [employer]. Thrive Questionnaire Date Thrive assessed: 02/04/25 I am a: Patient What is your living situation today?: I have a steady place to live Within the past 12 months, did the food you bought not last and you didn't have the money to get more?: Often true Within the past 12 months, did you worry whether your food would run out before you got money to buy more?: Never true Do you have trouble paying for medicines?: No Do you have trouble getting transportation to medical appointments?: No Do you have trouble paying your heating and electricity bill?: No Do you have trouble taking care of your child, family member or friend?: No Do you have trouble with day-to-day activities such as bathing, preparing meals, shopping, managing finances, etc.?: Yes Are you currently unemployed and looking for a job?: Yes Are you interested in more education?: No Please select the resources that you would like help with: Job search/training Currently or been in a relationship where the following occur: No concerns reported THRIVE Score: 1 AUDIT C Alcohol Use Questionnaire (AUDIT-C) 1. How often do you have a drink containing alcohol?: Monthly or less 2. How many drinks containing alcohol do you have on a typical day when you are drinking?: 3 or 4 3. How often do you have six or more drinks on one occasion?: Never Total Score: 2 Score Reviewed/Action Taken: No CARMENZA-7 AMB Questionnaire CARMENZA-7 Date CARMENZA - 7 assessed: 02/05/25 Source: Developed by Drs. John Dunham, Lilian Pride, Farooq Melissa and colleagues, with an educational toya from [employer]. Review of Systems Const All systems reviewed & are unremarkable except as noted in HPI and below Card Denies chest pain at rest, Denies chest pain with activity, Denies edema, Denies irregular heart rhythm, Denies claudication, Denies dyspnea, Denies dyspnea on exertion, Denies orthopnea, Denies paroxysmal nocturnal dyspnea and Denies slow heart rate Resp Denies cough, Denies dyspnea and Denies dyspnea on exertion Neuro Denies lack of coordination Physical exam (Primary Care) Vital Signs: Last Vital Signs Pulse 90 04/08/25 16:03 BP 110/74 04/08/25 16:03 Pulse Ox 98 04/08/25 16:03 Oxygen Delivery Method Room Air 04/08/25 16:03 BMI result Body Mass Index 28.2 Tobacco/Smoking Status: Tobacco use Status Tobacco use date assessed 04/08/25 04/08/25 16:10 Patient Tobacco Use Status Former Tobacco user 04/08/25 16:23 Tobacco use type Cigarette 04/08/25 16:23 e-Cigarette/Vaping Use Never Used 04/08/25 16:23 PHQ-9: PHQ-9 Score PHQ-9: Total score 9 04/08/25 16:32 Depression Screening Interpretation: Positive Depression Screening Follow-up: Existing condition, In treatment and Follow-up Visit Requested Thrive Assessment: Date of Thrive Assessment Date Thrive assessed 02/04/25 04/08/25 16:10 Currently or been in a relationship where the following occur: No concerns reported HENMT Head: Yes normal to inspection, Yes normocephalic and Yes atraumatic Ears: external ears normal Eyes General: appearance normal, both eyes and all related structures Eyelids: Yes eyelids normal Conjunctivae: conjunctivae normal Neck Neck: Yes normal visual inspection and Yes supple Resp Effort & Inspection: normal respiratory effort Auscultation: clear to auscultation bilaterally Cardio Jugular venous distension: no JVD Rate: regular rate Rhythm: regular rhythm Heart sounds: S1 normal heart sound present and S2 normal heart sound present GI Inspection: Yes normal to inspection Palpation (GI): Soft to palpation and Tenderness to palpation present (GI) in the RUQ Auscultation: normal bowel sounds Skin General skin exam: no rashes or lesions noted Neuro General: no focal motor deficits Extrem General: Yes full ROM Psych Appearance: grossly normal Immunizations Boostrix Tdap 2.5 Lf unit-8 mcg-5 Lf/0.5 mL intramuscular syringe Performing Provider: Sujey Abreu MD [facility] [place] [facility] Administered by: CARRIE Man on 04/08/25 16:33 Dose Route Admin Location Dispensed Lot Number Expiration Date NDC Director Of Religious Life 0.5 mL IM Left Deltoid 0.5 mL [id number] 09/06/27 95362-064-31 [employer] Total Dispensed Waste 0.5 mL 0 % VIS Given Date VIS Provided VIS Publication Date 04/08/25 Single Vaccine 21 Eligibility Eligibility Date Funding Source Not [facility] Eligible 04/08/25 Private Coding Level of Care Code Est Pt Level 3 (15801) Est Pt Prev Care 18-39y(39328) Diagnoses Annual physical exam Z00.00 Moderate recurrent major depression F33.1 Right upper quadrant abdominal pain R10.11 Additional Codes PHQ-9 - 71688 - PHQ-9 Billing: Yes ([id number]) Time Spent (min) 33 Assessment & Plan Assessment & Plan (1) Annual physical exam: Code(s): Z00.00 - Encounter for general adult medical examination without abnormal findings Category: Medical (2) Moderate recurrent major depression: Code(s): F33.1 - Major depressive disorder, recurrent, moderate Category: Medical (3) Right upper quadrant abdominal pain: Code(s): R10.11 - Right upper quadrant pain Category: Medical Plan Plan 1. Physical exam Repeat in a year 2. Abdominal Pain The patient's right-sided abdominal pain, which worsens after eating and is associated with right upper quadrant tenderness, is suspicious for a gallbladder etiology such as gallstones. An abdominal ultrasound will be ordered for further evaluation. He has an upcoming appointment with a GI specialist on May 12, which he should keep. 3. Insomnia And Anxiety The patient's insomnia and anxiety are managed by his psychiatrist. He was advised to follow up with his psychiatrist for medication management, including his request for a higher dose of gabapentin. Orders: Orders Lipid Panel Today E78.5 - Hyperlipidemia, unspecified Comprehensive [place]. Panel Fast Today Z00.00 - Encounter for general adult medical examination without abnormal findings TDaP Immunization Today Z23 - Encounter for immunization US abdomen limited Today R10.11 - Right upper quadrant pain Medications: Refilled ibuprofen 400 mg PO Q6H PRN 20 tabs 0RF pain
--- OUTSIDE RECORDS SUMMARY | 2025-04-08 20:06 | XMS_ITS | Clinical Summary ---
Author Organization [address] [place] [address] Address [address] [place] [address] Phone Care Team Providers Care Registered Nurses Name Role Phone Sujey Abreu MD Primary Care Provider [phone] Surgical History Surgery Date Site/Laterality Comments ANKLE [...] of 3 - 19+ 3-dose series) 2006 HPV Vaccines (1 - 3-dose SCD M series) 2014 Cholesterol Screening (Lipid Panel) 05/15/2022 HIV Screening 05/15/2022 Hepatitis C Screening 05/15/2022 Social Influencers of Health Screening 05/15/2022 Depression Screening 06/12/2024 COVID-19 Vaccine ( - 2023-2 5 season) 2025 Influenza Vaccine (#1) 2025 05/19/2020 RSV Immunization Adult Patie nts (1 - 1-dose 75+ series) 2062 HIB Vaccines Aged Out No longer eligi [...] patient's age to complete this topic Insurance [employer] PLAN Care Teams Registered Nurses Relationship Specialty Start Date End Date Sujey Abreu MD [address] [place] [address] , [address] [facility] Physician Associ D/B/A: [facility] [place] PCP - General Internal Medicine 06/24/21
--- OUTSIDE RECORDS SUMMARY | 2025-04-08 20:06 | XMS_ITS | Clinical Summary ---
Author Organization [facility] Address [address] [place] [address] Care Team Providers Care Green Material Value Added Assessor Name Role Phone Sujey Sanchez MD Primary [...] age to complete this topic Care Teams Green Material Value Added Assessor Relationship Specialty Start Date End Date Sujey Sanchez MD [address] [place] [address] , [address] [facility] Physician Associ D/B/A: [facility] [place] [address] PCP - General Internal Medicine 09/16/20
== END 2025-04-08 16:38 | disposition home or self-care (01) ==
LOC: HO.HMCH 16:02
PROVIDERS: PCP Internal Medicine; Visit Provider Internal Medicine
DX: Z00.00 Encounter for general adult medical examination without abnormal findings (principal); R10.11 Right upper quadrant pain; F33.1 Major depressive disorder, recurrent, moderate; Z23 Encounter for immunization

== ENCOUNTER → 2025-04-08 16:01 | Outpatient (BNVA) | payer OTHER, SELFPAY | PROVIDERS: PCP Internal Medicine; Visit Provider Internal Medicine | DX: Z00.00 Encounter for general adult medical examination without abnormal findings (principal); F51.04 Psychophysiologic insomnia; F33.1 Major depressive disorder, recurrent, moderate; R10.11 Right upper quadrant pain; E78.5 Hyperlipidemia, unspecified; Z23 Encounter for immunization; Z79.899 Other long term (current) drug therapy | CPT/HCPCS: 90471; 90715; 96127; 99212; 99395 ==

== ENCOUNTER 2025-04-10 12:39 | Outpatient (REF) | payer OTHER, SELFPAY ==
[2025-04-10 13:03] LABS: MANUAL DIFF FLAG NO
[2025-04-10 13:46] LABS: Hematocrit 47.0 % (42.0-52.0); Hemoglobin 14.7 g/dl (14.0-18.0); Imm Gran Abs Auto 0.03 X10*3/uL (0.00-0.03); Imm Gran Pct Auto 0.4 % (0.0-0.4); Lymphocytes Absolute Auto 1.9 X10*3/uL (1.2-4.9); Mean Corpuscular HGB Conc 31.3 g/dl (31.0-36.0); Mean Corpuscular Hemoglobin 24.9 pg (27.0-33.0); Mean Corpuscular Volume 79.5 fL (80.0-98.0); NRBC Abs Auto 0.000 X10*3/uL (0.0-0.012); NRBC Pct Auto 0.0 /100WBC (0.0-0.2); Platelet Count 302 X10*3/uL (160-400); Red Blood Count 5.91 X10*6/uL (4.60-5.80); White Blood Count 6.9 X10*3/uL (4.8-10.8)
[2025-04-10 14:07] LABS: Appearance Urine Clear; Glucose Urine UA Negative (Negative); PH 6.5 (5.0-9.0); Specific Gravity - Urine 1.020 (1.005-1.025)
[2025-04-10 14:32] LABS: Alanine Aminotransferase 43 U/L (0-40); Albumin Level 4.9 g/dL (3.5-5.0); Alkaline Phosphatase 95 U/L (39-117); Anion Gap 10 (12-20); Aspartate Amino Transferase 25 U/L (5-37); Blood Urea Nitrogen 12 mg/dL (9-16); Calcium 9.5 mg/dL (8.4-10.2); Carbon Dioxide 31 mmol/L (22-29); Chloride 107 mmol/L (96-108); Cholesterol 195 mg/dL (<200); Estimated Glomerular Filt Rate > 60; HDL Cholesterol 39 mg/dL (>40); Potassium 4.3 mmol/L (3.3-5.1); Sodium 144 mmol/L (135-145); Total Protein 7.7 g/dL (6.5-8.0); Triglycerides 129 mg/dL (<150)
--- OUTSIDE RECORDS SUMMARY | 2025-04-10 15:30 | XMS_ITS | Clinical Summary ---
Author Organization [facility] Address [address] [place] [address] Care Team Providers Care Talent Acquisition Administrator Name Role Phone Sujey Sanchez MD Primary [...] age to complete this topic Care Teams Talent Acquisition Administrator Relationship Specialty Start Date End Date Sujey Sanchez MD [address] [place] [address] , [address] [facility] Physician Associ D/B/A: [facility] [place] [address] PCP - General Internal Medicine 09/16/20
--- OUTSIDE RECORDS SUMMARY | 2025-04-10 15:30 | XMS_ITS | Clinical Summary ---
Author Organization [address] [place] [address] Address [address] [place] [address] Phone Care Team Providers Care Portable Irrigation Operator Name Role Phone Sujey Abreu MD Primary Care Provider [phone] Surgical History Surgery Date Site/Laterality Comments ANKLE [...] patient's age to complete this topic Insurance [employer] PLAN Care Teams Portable Irrigation Operator Relationship Specialty Start Date End Date Sujey Abreu MD [address] [place] [address] , [address] [facility] Physician Associ D/B/A: [facility] [place] PCP - General Internal Medicine 06/24/21
[2025-04-11 05:48] LABS: Lyme Abs Screen <0.90 index
[2025-04-21 12:43] LABS: Anti Nuclear Antibody Screen POSITIVE (NEGATIVE); Anti Nuclear Antibody Titer 1:80 titer
== END 2025-04-10 12:40 | disposition home or self-care (01) ==
LOC: HO.LAB 12:39
PROVIDERS: Internal Medicine; PCP Internal Medicine; Visit Provider Internal Medicine
DX: Z00.00 Encounter for general adult medical examination without abnormal findings (principal); Z01.84 Encounter for antibody response examination; R20.2 Paresthesia of skin; G25.81 Restless legs syndrome; D64.9 Anemia, unspecified; M79.7 Fibromyalgia; E78.00 Pure hypercholesterolemia, unspecified; R30.0 Dysuria; E78.5 Hyperlipidemia, unspecified; W57.XXXA Bitten or stung by nonvenomous insect and other nonvenomous arthropods, initial encounter
CPT/HCPCS: 36415; 80053; 80061; 81003; 84443; 85025; 85652; 86038; 86039; 86140; 86431; 86617; 86618

== ENCOUNTER 2025-04-15 12:06 | Outpatient (REF) | payer OTHER, SELFPAY ==
--- NOTE | 2025-04-15 12:08 | EMG_ITS ---
Chief complaint:? R20.2 paresthesia of skin, M79.661 pain in right leg, M79.662 pain in left leg Reason for referral: Evaluate for peripheral neuropathy Referred by:? Richard Bonilla MD Procedure done:? Bilateral lower extremities NCS/EMG [place] 26017, x2 extremities Bilateral tibial and peroneal motor studies were performed with F responses. Tibial H reflexes were obtained. Bilateral superficial peroneal, sural, and median and lateral mixed plantars sensory studies were performed. EMG needle examination was performed. Findings: Left tibial motor amplitude was negligible with significantly delayed conduction velocity. Rest of the motor studies did not reveal any significant abnormality. Left subacute facial peroneal and sural sensory studies revealed moderate slowing of conduction velocity and loss of amplitude. Median and lateral mixed plantars studies revealed no response on the left side and right medial side. Needle examination revealed no acute findings. Muscle contraction affect was limited. Impression: 1. Chronic right lower lumbar radiculopathy 2. 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
--- OUTSIDE RECORDS SUMMARY | 2025-04-15 14:52 | XMS_ITS | Clinical Summary ---
Author Organization [facility] Address [address] [place] [address] Care Team Providers Care Quail Farmer Name Role Phone Sujey Sanchez MD Primary [...] age to complete this topic Care Teams Quail Farmer Relationship Specialty Start Date End Date Sujey Sanchez MD [address] [place] [address] , [address] [facility] Physician Associ D/B/A: [facility] [place] [address] PCP - General Internal Medicine 09/16/20
--- OUTSIDE RECORDS SUMMARY | 2025-04-15 14:52 | XMS_ITS | Clinical Summary ---
Author Organization [address] [place] [address] Address [address] [place] [address] Phone Care Team Providers Care Workforce Management Manager Name Role Phone Sujey Abreu MD Primary Care Provider [phone] Surgical History Surgery Date Site/Laterality Comments ANKLE [...] patient's age to complete this topic Insurance [employer] PLAN Care Teams Workforce Management Manager Relationship Specialty Start Date End Date Sujey Abreu MD [address] [place] [address] , [address] [facility] Physician Associ D/B/A: [facility] [place] PCP - General Internal Medicine 06/24/21
== END 2025-04-15 12:07 | disposition home or self-care (01) ==
LOC: HO.NEURO 12:06
PROVIDERS: PCP Internal Medicine; Visit Provider Internal Medicine
DX: R20.2 Paresthesia of skin (principal); M79.661 Pain in right lower leg; M79.662 Pain in left lower leg
CPT/HCPCS: 95886; 95913

== ENCOUNTER → 2025-04-15 12:08 | Outpatient (BNV) | payer OTHER, SELFPAY | PROVIDERS: PCP Internal Medicine; Visit Provider Psychiatry & Neurology Neurology | DX: M54.16 Radiculopathy, lumbar region (principal) | CPT/HCPCS: 95886; 95913 ==

== ENCOUNTER 2025-05-12 12:14 | Outpatient (AMB) | payer OTHER, SELFPAY ==
[2025-05-12 12:28] VITALS: BP 134/74; PULSE 80; BMI 27.8
--- NOTE | 2025-05-12 12:28 | MHC.OFFVIS ---
Vital Signs 05/12/25 12:28 Height 6 ft Weight 205 lb BMI 27.8 BP 134/74 Blood Pressure Location Rt brachial Position Sitting Pulse 80 Intake Visit Reasons: f/u abdominal pains Intake Note: Brayden returns to in office follow up of abd pain. CC: Patient reports that his abd pain is a little bit better and that he has been taking a tea that helps him also with constipation. He continues getting a lot of abd bloating, gas, and nausea after eating. Plating Stripper Required: No Accompanied by: Self / Same As Patient Allergies No Known Allergies Allergy (Verified 05/12/25 12:37) HPI Comments Details: 39 y.o M with PMH of 7.1 cm of myxopapillary ependymoma affecting cauda equina s1-s3 s/p resection and XRT in 2020 ([place]), MARINA, who is booked for televisit for follow-up for constipation. Previously [facility] [place]. Surgical hx as noted above. Pt has since then developed issues with constipation and urinary retention. Reports has decreased sensation/urge to urinate/defecate since his spine surgery. Symptoms even unable to pass flatulence, despite significant bloating and discomfort. Drinks an herbal tea to induce abd cramping to help pass BM. Has to strain significantly. Also takes fiber and senna. In addition, reports generalized feeling of numbness and tingling over his perineum. Does not report sexual dysfunction. Bladder issues as above. Reports has seen a urologist in the past but was unable to recall where and who he saw. 10/09/24: Seen in person today. Seen by spine surgeon - no intervention recommended for now. Serial MRIs for monitoring. Missed urology appt in August. Now appt is on 10/17 to discuss SNS. He does not remember if he took motegrity. Requests to be represcribed. Otherwise reports symptoms are unchanged but likely because interventions outlined at previous OV not implemented yet. 05/12/25: Here for follow-up management of chronic constipation. Following a previous virtual visit, Motegrity (prucalopride) 1 mg was prescribed, but he is unsure if he has been taking it and reports symptoms are unchanged, with approximately two to three bowel movements per week. The patient takes a stool softener (Colace) twice daily but does not use MiraLax. Patient also did not follow up with urology for InterStim. He tells me he is moving to [place] permanently and looking to get a refill to tide him over until he is established with medical care there. --- Pt was informed and consented to the use of ambient scribe for this encounter. 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 Anxiety Blurry vision Perineural cyst Lumbar spondylosis with myelopathy Surgical History History of lumbar surgery History of ankle surgery Family History Mother Diabetes Stroke High blood pressure Sister Thyroid condition Social History (Updated 04/08/25 @ 16:23 by Sujey Abreu MD) Housing: House Alcohol intake: former Patient Tobacco Use Status: Former Tobacco user Tobacco use type: Cigarette e-Cigarette/Vaping Use: Never Used Second Hand Smoke Exposure: No service: No Current occupational status: unemployed Cognitive needs: No Hearing needs: No Vision needs: Yes Review of Systems Const All systems reviewed & are unremarkable except as noted in HPI and below Physical Exam Exam Exam: No apparent distress Nonicteric Abdomen soft, nondistended Alert and oriented x3, normal gait Vital Signs: Last Vital Signs Pulse 80 05/12/25 12:28 BP 134/74 05/12/25 12:28 BMI result Body Mass Index 27.8 Assessment & Plan Assessment & Plan (1) Constipation due to neurogenic bowel: Code(s): K59.00 - Constipation, unspecified; K59.2 - Neurogenic bowel, not elsewhere classified Category: Medical Plan Based on his history and temporality with the surgery/radiation therapy, suspect neurogenic bowel and bladder injury. Declined SNS trial with Urology. From GI standpoint, consistent bowel regimen was again reinforced. He is moving to [place] and requests 90d supply for meds. Plan: -Motegrity 1 mg daily will be prescribed x 90 days, with emphasis on the need for daily use for efficacy. - MiraLax has also been sent with instructions to take it one to two times daily. - Rectal evacuation with enema/suppositories if no BM for 2 days - Pt encouraged to cont follow up with GI provider locally in [place]. Medications: New polyethylene glycol 3350 (Miralax) 17 grams PO DAILY 510 grams 0RF 30 days prucalopride (Motegrity) 1 mg PO DAILY 90 tabs 0RF 90 days Discontinued prucalopride (Motegrity) Discontinued Reason: Doctor's Order 1 mg PO DAILY 30 days 30 tabs 0RF Coding Level of Care Code Est Pt Level 3 (02802) Diagnoses Constipation due to neurogenic bowel K59.00; K59.2
--- OUTSIDE RECORDS SUMMARY | 2025-05-12 15:59 | XMS_ITS | Clinical Summary ---
Author Organization [facility] Address [address] [place] [address] Care Team Providers Care Manufacturing Test Technician Name Role Phone Sujey Sanchez MD [...] age to complete this topic Care Teams Manufacturing Test Technician Relationship Specialty Start Date End Date Sujey Sanchez MD [address] [place] [address] , [address] [facility] Physician Associ D/B/A: [facility] [place] [address] PCP - General Internal Medicine 09/16/20
--- OUTSIDE RECORDS SUMMARY | 2025-05-12 15:59 | XMS_ITS | Clinical Summary ---
Author Organization [address] [place] [address] Address [address] [place] [address] Phone Care Team Providers Care Fabric Inspector Name Role Phone Sujey Abreu MD Primary Care Provider [phone] Surgical History Surgery Date Site/Laterality Comments ANKLE [...] Depression Screening 06/12/2024 COVID-19 Vaccine ( - 2024-2 6 season) 2025 Influenza Vaccine (#1) 2025 05/19/2020 [...] patient's age to complete this topic Insurance [employer] PLAN Care Teams Fabric Inspector Relationship Specialty Start Date End Date Sujey Abreu MD [address] [place] [address] , [address] [facility] Physician Associ D/B/A: [facility] [place] PCP - General Internal Medicine 06/24/21
== END 2025-05-12 15:18 | disposition home or self-care (01) ==
LOC: HO.HGI 12:15
PROVIDERS: PCP Internal Medicine; Visit Provider Internal Medicine
DX: K59.00 Constipation, unspecified (principal); K59.2 Neurogenic bowel, not elsewhere classified
CPT/HCPCS: 99213

== ENCOUNTER → 2025-05-12 12:14 | Outpatient (BNVA) | payer OTHER, SELFPAY | PROVIDERS: PCP Internal Medicine; Visit Provider Internal Medicine | DX: K59.00 Constipation, unspecified (principal); K59.2 Neurogenic bowel, not elsewhere classified | CPT/HCPCS: 99212 ==